=== PATIENT | male | born 1945 | race Caucasian/White ===

== ENCOUNTER 2023-03-09 06:24 | Day surgery (SDC) | payer MEDICARE, SELFPAY ==
[2023-03-09] VITALS (9 sets, daily range): BP systolic 102–127; BP diastolic 59–70; BMI 23.9
[2023-03-09] MEDS: COREG 3.125 MG PO (09:50)
== END 2023-03-09 14:15 | disposition home or self-care (01) ==
LOC: SDS 06:24
PROVIDERS: ATTENDING PHYSICIAN Internal Medicine Critical Care Medicine
DX: R91.1 Solitary pulmonary nodule (principal); R91.8 Other nonspecific abnormal finding of lung field; J95.71 Accidental puncture and laceration of a respiratory system organ or structure during a respiratory system procedure; J98.09 Other diseases of bronchus, not elsewhere classified
CPT/HCPCS: 31629; 31624; 31645; 31654; 31623; 31627; 88172; 88173; 88305; 88312; 71045; 76000; 88112; 88177; 88333; 88334; 88341; 88342; 94640; C1887

== ENCOUNTER → 2023-03-16 14:15 | Outpatient (REF) | payer MEDICARE, SELFPAY ==
[2023-03-16 15:30] LABS: % Basophils 0.6 % (0-2); % Eosinophils 2.3 % (0-6); % Immature Granulocytes 0.4 % (0-0.5); % Lymphocytes 15.5 % (20.5-51.1); % Monocytes 11.7 % (1.7-9.3); % Neutrophils 69.5 % (42.2-75.2); Absolute Eosinophils 0.1 10^3/uL (0-0.7); Absolute Lymphocytes 0.7 10^3/uL (1.2-3.4); Absolute Monocytes 0.6 10^3/uL (0.1-0.6); Absolute Neutrophils 3.3 10^3/uL (1.4-6.5); Hematocrit 37.5 % (39.0-52.0); Hemoglobin 12.8 g/dL (13.0-18.0); Mean Corp Hgb Conc. 34.1 g/dL (33.0-37.0); Mean Corpuscular Hgb 32.6 pg (27.0-31.0); Mean Corpuscular Volume 95.4 fL (80.0-94.0); Mean Platelet Volume 9.8 fL (7.4-10.4); Nucleated Red Blood Cells % 0 % (-); Platelet Count 156 10^3/uL (130-400); Red Blood Cell Count 3.93 10^6/uL (4.70-6.10); White Blood Cell Count 4.7 10^3/uL (4.8-10.8)
[2023-03-16 15:43] LABS: ALT (SGPT) 17 U/L (0-50); AST (SGOT) 26 U/L (17-59); Albumin 3.7 g/dl (3.5-5.0); Alkaline Phosphatase 78 U/L (38-126); Blood Urea Nitrogen 16 mg/dl (9-20); Calcium 9.2 mg/dl (8.4-10.2); Carbon Dioxide 24 mmol/L (22-30); Chloride 109 mmol/L (98-107); Glucose 83 mg/dl (70-99); Potassium 4.8 mmol/L (3.5-5.1); Sodium 136 mmol/L (135-145); Total Bilirubin 1.3 mg/dl (0.2-1.3); Total Protein 6.6 g/dl (6.3-8.2); eGFR > 60.00
[2023-03-16 16:14] LABS: CEA 54.6 ng/ml
== END ==
LOC: OIDL 14:15
PROVIDERS: ATTENDING PHYSICIAN Internal Medicine Hematology & Oncology
DX: C18.2 Malignant neoplasm of ascending colon (principal)
CPT/HCPCS: 80053; 82378; 85025

== ENCOUNTER → 2023-06-05 08:41 | Outpatient (REF) | payer MEDICARE, SELFPAY ==
[2023-06-05 09:26] LABS: % Basophils 0.8 % (0-2); % Eosinophils 1.7 % (0-6); % Immature Granulocytes 0.4 % (0-0.5); % Lymphocytes 16.1 % (20.5-51.1); % Monocytes 10.5 % (1.7-9.3); % Neutrophils 70.5 % (42.2-75.2); Absolute Eosinophils 0.1 10^3/uL (0-0.7); Absolute Lymphocytes 0.8 10^3/uL (1.2-3.4); Absolute Monocytes 0.5 10^3/uL (0.1-0.6); Absolute Neutrophils 3.4 10^3/uL (1.4-6.5); Hematocrit 42.3 % (39.0-52.0); Hemoglobin 14.3 g/dL (13.0-18.0); Mean Corp Hgb Conc. 33.8 g/dL (33.0-37.0); Mean Corpuscular Hgb 31.3 pg (27.0-31.0); Mean Corpuscular Volume 92.6 fL (80.0-94.0); Mean Platelet Volume 9.6 fL (7.4-10.4); Nucleated Red Blood Cells % 0 % (-); Platelet Count 159 10^3/uL (130-400); Red Blood Cell Count 4.57 10^6/uL (4.70-6.10); Red Cell Dist. Width 12.9 % (11.5-14.5); White Blood Cell Count 4.8 10^3/uL (4.8-10.8)
[2023-06-05 12:47] LABS: ALT (SGPT) 17 U/L (0-50); AST (SGOT) 31 U/L (17-59); Albumin 4.2 g/dl (3.5-5.0); Alkaline Phosphatase 73 U/L (38-126); Blood Urea Nitrogen 16 mg/dl (9-20); Calcium 10.2 mg/dl (8.4-10.2); Carbon Dioxide 20 mmol/L (22-30); Chloride 108 mmol/L (98-107); Glucose 98 mg/dl (70-99); HDL Cholesterol 40 mg/dl; LDL Cholesterol, Calculated 53 mg/dl; Potassium 4.8 mmol/L (3.5-5.1); Sodium 136 mmol/L (135-145); Total Bilirubin 1.6 mg/dl (0.2-1.3); Total Cholesterol 119 mg/dl (50-199); Total Protein 7.1 g/dl (6.3-8.2); Triglyceride 134 mg/dl (10-149); Very Low Density Lipoprotein 26 mg/dl (0-30); eGFR > 60.00
== END ==
LOC: REG 08:41
PROVIDERS: ATTENDING PHYSICIAN Internal Medicine
DX: E78.5 Hyperlipidemia, unspecified (principal); I25.5 Ischemic cardiomyopathy; I10 Essential (primary) hypertension; Z00.00 Encounter for general adult medical examination without abnormal findings
CPT/HCPCS: 36415; 80053; 80061; 85025

== ENCOUNTER → 2023-06-15 15:57 | Outpatient (REF) | payer MEDICARE, SELFPAY ==
[2023-06-15 14:21] LABS: % Basophils 0.4 % (0-2); % Eosinophils 1.8 % (0-6); % Immature Granulocytes 0.5 % (0-0.5); % Lymphocytes 14.3 % (20.5-51.1); % Monocytes 9.2 % (1.7-9.3); % Neutrophils 73.8 % (42.2-75.2); Absolute Eosinophils 0.1 10^3/uL (0-0.7); Absolute Lymphocytes 0.8 10^3/uL (1.2-3.4); Absolute Monocytes 0.5 10^3/uL (0.1-0.6); Absolute Neutrophils 4.1 10^3/uL (1.4-6.5); Hematocrit 39.1 % (39.0-52.0); Hemoglobin 13.2 g/dL (13.0-18.0); Mean Corp Hgb Conc. 33.8 g/dL (33.0-37.0); Mean Corpuscular Hgb 31.4 pg (27.0-31.0); Mean Corpuscular Volume 93.1 fL (80.0-94.0); Mean Platelet Volume 9.3 fL (7.4-10.4); Nucleated Red Blood Cells % 0 % (-); Platelet Count 159 10^3/uL (130-400); White Blood Cell Count 5.5 10^3/uL (4.8-10.8)
[2023-06-15 16:34] LABS: ALT (SGPT) 19 U/L (0-50); AST (SGOT) 39 U/L (17-59); Alkaline Phosphatase 74 U/L (38-126); Blood Urea Nitrogen 23 mg/dl (9-20); Calcium 9.8 mg/dl (8.4-10.2); Carbon Dioxide 21 mmol/L (22-30); Chloride 108 mmol/L (98-107); Glucose 95 mg/dl (70-99); Potassium 4.6 mmol/L (3.5-5.1); Sodium 137 mmol/L (135-145); Total Bilirubin 1.3 mg/dl (0.2-1.3); eGFR > 60.00
[2023-06-15 17:04] LABS: CEA 124 ng/ml
== END ==
LOC: OIDL 15:57
PROVIDERS: ATTENDING PHYSICIAN Internal Medicine Hematology & Oncology
DX: C18.2 Malignant neoplasm of ascending colon (principal)
CPT/HCPCS: 80053; 82378; 85025

== ENCOUNTER → 2023-10-05 16:13 | Outpatient (REF) | payer MEDICARE, SELFPAY ==
[2023-10-05 16:20] LABS: % Basophils 0.3 % (0-2); % Eosinophils 1.4 % (0-6); % Immature Granulocytes 0.3 % (0-0.5); % Lymphocytes 11.4 % (20.5-51.1); % Monocytes 8.7 % (1.7-9.3); % Neutrophils 77.9 % (42.2-75.2); Absolute Eosinophils 0.1 10^3/uL (0-0.7); Absolute Lymphocytes 0.7 10^3/uL (1.2-3.4); Absolute Monocytes 0.6 10^3/uL (0.1-0.6); Hematocrit 39.9 % (39.0-52.0); Hemoglobin 13.5 g/dL (13.0-18.0); Mean Corp Hgb Conc. 33.8 g/dL (33.0-37.0); Mean Corpuscular Hgb 32.5 pg (27.0-31.0); Mean Corpuscular Volume 95.9 fL (80.0-94.0); Mean Platelet Volume 9.9 fL (7.4-10.4); Nucleated Red Blood Cells % 0 % (-); Platelet Count 173 10^3/uL (130-400); Red Blood Cell Count 4.16 10^6/uL (4.70-6.10); Red Cell Dist. Width 12.8 % (11.5-14.5); White Blood Cell Count 6.5 10^3/uL (4.8-10.8)
[2023-10-05 16:25] LABS: ALT (SGPT) 17 U/L (0-50); AST (SGOT) 32 U/L (17-59); Alkaline Phosphatase 81 U/L (38-126); Blood Urea Nitrogen 14 mg/dl (9-20); Calcium 10.1 mg/dl (8.4-10.2); Carbon Dioxide 24 mmol/L (22-30); Chloride 106 mmol/L (98-107); Glucose 94 mg/dl (70-99); Potassium 4.5 mmol/L (3.5-5.1); Sodium 141 mmol/L (135-145); Total Bilirubin 1.3 mg/dl (0.2-1.3); Total Protein 6.8 g/dl (6.3-8.2); eGFR > 60.00
[2023-10-05 16:55] LABS: CEA 190 ng/ml
== END ==
LOC: OIDL 16:13
PROVIDERS: ATTENDING PHYSICIAN Internal Medicine Hematology & Oncology
DX: C18.2 Malignant neoplasm of ascending colon (principal)
CPT/HCPCS: 80053; 82378; 85025

== ENCOUNTER → 2023-12-28 08:48 | Outpatient (REF) | payer MEDICARE, SELFPAY ==
[2023-12-28 09:50] LABS: % Basophils 0.8 % (0-2); % Eosinophils 2.1 % (0-6); % Immature Granulocytes 0.4 % (0-0.5); % Lymphocytes 15.7 % (20.5-51.1); % Monocytes 11.4 % (1.7-9.3); % Neutrophils 69.6 % (42.2-75.2); Absolute Eosinophils 0.1 10^3/uL (0-0.7); Absolute Lymphocytes 0.8 10^3/uL (1.2-3.4); Absolute Monocytes 0.6 10^3/uL (0.1-0.6); Absolute Neutrophils 3.4 10^3/uL (1.4-6.5); Hematocrit 40.8 % (39.0-52.0); Hemoglobin 13.6 g/dL (13.0-18.0); Mean Corp Hgb Conc. 33.3 g/dL (33.0-37.0); Mean Platelet Volume 9.6 fL (7.4-10.4); Nucleated Red Blood Cells % 0 % (-); Platelet Count 165 10^3/uL (130-400); Red Blood Cell Count 4.25 10^6/uL (4.70-6.10); White Blood Cell Count 4.8 10^3/uL (4.8-10.8)
[2023-12-28 11:05] LABS: ALT (SGPT) 18 U/L (0-50); AST (SGOT) 29 U/L (17-59); Albumin 4.2 g/dl (3.5-5.0); Alkaline Phosphatase 77 U/L (38-126); Blood Urea Nitrogen 23 mg/dl (9-20); Carbon Dioxide 25 mmol/L (22-30); Chloride 107 mmol/L (98-107); Glucose 96 mg/dl (70-99); HDL Cholesterol 42 mg/dl; LDL Cholesterol, Calculated 63 mg/dl; Potassium 5.2 mmol/L (3.5-5.1); Sodium 146 mmol/L (135-145); Total Bilirubin 1.3 mg/dl (0.2-1.3); Total Cholesterol 132 mg/dl (50-199); Total Protein 7.3 g/dl (6.3-8.2); Triglyceride 138 mg/dl (10-149); Very Low Density Lipoprotein 27 mg/dl (0-30); eGFR > 60.00
[2023-12-28 15:19] LABS: Direct Bilirubin 0.3 mg/dl (0.0-0.4)
== END ==
LOC: REG 08:48
PROVIDERS: ATTENDING PHYSICIAN Internal Medicine; OTHER PHYSICIAN Internal Medicine Cardiovascular Disease
DX: Z00.00 Encounter for general adult medical examination without abnormal findings (principal); I10 Essential (primary) hypertension; E78.00 Pure hypercholesterolemia, unspecified; Z12.5 Encounter for screening for malignant neoplasm of prostate; Z85.46 Personal history of malignant neoplasm of prostate
CPT/HCPCS: 36415; 80053; 80061; 82248; 84153; 84154; 85025

== ENCOUNTER → 2024-01-11 14:01 | Outpatient (REF) | payer MEDICARE, SELFPAY | LOC: CLAB 14:01 | PROVIDERS: ATTENDING PHYSICIAN Internal Medicine Hematology & Oncology | DX: C18.2 Malignant neoplasm of ascending colon (principal); G62.0 Drug-induced polyneuropathy; C78.00 Secondary malignant neoplasm of unspecified lung | CPT/HCPCS: 36415; 82378 ==

== ENCOUNTER → 2024-02-29 09:34 | Outpatient (REF) | payer MEDICARE, SELFPAY ==
[2024-02-29 11:09] LABS: Blood Urea Nitrogen 20 mg/dl (9-20)
== END ==
LOC: REG 09:34
PROVIDERS: ATTENDING PHYSICIAN Internal Medicine Hematology & Oncology; FAMILY PHYSICIAN Internal Medicine
DX: C18.2 Malignant neoplasm of ascending colon (principal); G62.0 Drug-induced polyneuropathy; C78.00 Secondary malignant neoplasm of unspecified lung
CPT/HCPCS: 36415; 82565; 84520

== ENCOUNTER → 2024-03-11 14:59 | Outpatient (REF) | payer MEDICARE, SELFPAY | LOC: RAD 14:59 | PROVIDERS: ATTENDING PHYSICIAN Nurse Practitioner Adult Health; FAMILY PHYSICIAN Internal Medicine | DX: C18.2 Malignant neoplasm of ascending colon (principal); C78.00 Secondary malignant neoplasm of unspecified lung; C62.00 Malignant neoplasm of unspecified undescended testis | CPT/HCPCS: 70470; Q9967 ==

== ENCOUNTER → 2024-04-04 16:15 | Outpatient (REF) | payer MEDICARE, SELFPAY ==
[2024-04-04 14:34] LABS: % Basophils 0.2 % (0-2); % Eosinophils 2.6 % (0-6); % Immature Granulocytes 0.2 % (0-0.5); % Lymphocytes 15.4 % (20.5-51.1); % Monocytes 11.6 % (1.7-9.3); Absolute Eosinophils 0.1 10^3/uL (0-0.7); Absolute Lymphocytes 0.7 10^3/uL (1.2-3.4); Absolute Monocytes 0.5 10^3/uL (0.1-0.6); Absolute Neutrophils 3.2 10^3/uL (1.4-6.5); Hematocrit 39.2 % (39.0-52.0); Hemoglobin 12.8 g/dL (13.0-18.0); Mean Corp Hgb Conc. 32.7 g/dL (33.0-37.0); Mean Corpuscular Hgb 31.6 pg (27.0-31.0); Mean Corpuscular Volume 96.8 fL (80.0-94.0); Platelet Count 175 10^3/uL (130-400); Red Blood Cell Count 4.05 10^6/uL (4.70-6.10); Red Cell Dist. Width 12.6 % (11.5-14.5); White Blood Cell Count 4.6 10^3/uL (4.8-10.8)
[2024-04-04 14:59] LABS: ALT (SGPT) 14 U/L (0-50); AST (SGOT) 23 U/L (17-59); Albumin 3.6 g/dl (3.5-5.0); Alkaline Phosphatase 96 U/L (38-126); Blood Urea Nitrogen 13 mg/dl (9-20); Calcium 9.3 mg/dl (8.4-10.2); Carbon Dioxide 24 mmol/L (22-30); Chloride 106 mmol/L (98-107); Glucose 98 mg/dl (70-99); Potassium 4.8 mmol/L (3.5-5.1); Sodium 138 mmol/L (135-145); Total Bilirubin 1.4 mg/dl (0.2-1.3); Total Protein 6.7 g/dl (6.3-8.2); eGFR > 60.00
[2024-04-04 15:32] LABS: CEA 333 ng/ml
== END ==
LOC: OIDL 16:15
PROVIDERS: ATTENDING PHYSICIAN Internal Medicine Hematology & Oncology
DX: C18.2 Malignant neoplasm of ascending colon (principal)
CPT/HCPCS: 80053; 82378; 85025

== ENCOUNTER → 2024-04-24 11:22 | Outpatient (REF) | payer MEDICARE, SELFPAY | LOC: RAD 11:22 | PROVIDERS: ATTENDING PHYSICIAN Nurse Practitioner Adult Health; FAMILY PHYSICIAN Internal Medicine | DX: C18.2 Malignant neoplasm of ascending colon (principal); C78.00 Secondary malignant neoplasm of unspecified lung; G62.0 Drug-induced polyneuropathy | CPT/HCPCS: 74160; Q9967 ==

== ENCOUNTER → 2024-04-28 09:07 | Outpatient (REF) | payer MEDICARE, SELFPAY ==
[2024-04-28 09:30] LABS: Hemoglobin 13.7 g/dL (13.0-18.0); Mean Corp Hgb Conc. 32.6 g/dL (33.0-37.0); Mean Corpuscular Hgb 31.6 pg (27.0-31.0); Mean Corpuscular Volume 96.8 fL (80.0-94.0); Mean Platelet Volume 9.3 fL (7.4-10.4); Platelet Count 163 10^3/uL (130-400); Red Blood Cell Count 4.34 10^6/uL (4.70-6.10); Red Cell Dist. Width 13.1 % (11.5-14.5); White Blood Cell Count 5.3 10^3/uL (4.8-10.8)
[2024-04-28 09:35] VITALS: BP 126/72; BP_SYST 70
[2024-04-28 09:39] LABS: INR 1.08; PT 14.3 Sec (11.4-14.6)
[2024-04-28 11:30] VITALS: BP 134/70; BP_SYST 60
== END ==
LOC: RADI 09:07
PROVIDERS: ATTENDING PHYSICIAN Internal Medicine Hematology & Oncology; FAMILY PHYSICIAN Internal Medicine; REFERRING PHYSICIAN Physician Assistant
DX: C79.72 Secondary malignant neoplasm of left adrenal gland (principal); C18.2 Malignant neoplasm of ascending colon; D68.8 Other specified coagulation defects
CPT/HCPCS: 88305; 36415; 49180; 77012; 85027; 85610; 88333; 88341; 88342; 99152; 99153

== ENCOUNTER 2024-05-19 09:55 | Emergency (ER) | payer MEDICARE, SELFPAY ==
[2024-05-19 10:02] VITALS: BP 116/78
[2024-05-19 10:36] VITALS: BMI 24.3
--- NOTE | 2024-05-19 10:36 | ED.GENMED ---
History of Present Illness
<Juan Modi, DO - Last Filed: 05/19/24 13:00>
General
Chief Complaint: Bowel Problem
Time Seen by Provider: 05/19/24 10:06
<Kristin Chen MD, Resident - Last Filed: 05/19/24 14:12>
History of Present Illness
History of Present Illness:
This is a 78-year-old male with multiple past medical history including history of malignant neoplasm of ascending colon treated with right colectomy, chemotherapy and radiation therapy, left adrenal mass scheduled for a left adrenalectomy tomorrow
under the direction of Dr. Unruly Maria, presents to the ED complaining of constipation. Patient reports he has not had a bowel movement for the past 7 days. He currently takes Oxycodone 5mg for pain secondary to the adrenal tumor for the past month. He
hasn't been taking a bowel regimen with the opioid med. He reports trying Colace, milk and mag, and miralax this weekend, but has not had a Bowel movement despite this regimen. He reports passing gas. He does not eat solids due to the current pain
he has, and drinks Ensure only. He has not had any episode of vomiting his food. He reports he does feel nauseous sometimes. He reports abdominal tenderness which is secondary to his adrenal gland tumor and has been present since diagnosis of tumor,
otherwise no new abdominal pain symptom. He denies fever, chill, diarrhea.
Past History
<Juan Modi, DO - Last Filed: 05/19/24 13:00>
Past History
ED Past Medical History: CAD, Cancer (Prostate and colon), HTN, Hypercholesterolemia, VT, Other (myelodysplastic syndrome) and Other (Prostate cancer, bilateral hearing impairment)
ED Past Surgical History: Cardiac (2 cardiac stents and an automatic internal cardiac defibrillator placed. Cardiac arrest.) and Urological (Prostatectomy)
Social History
Tobacco: Former smoker
Drug: None
Personal:
Living: with family
Employment: Retired
Family History
Family History: Other
<Kristin Chen MD, Resident - Last Filed: 05/19/24 14:12>
Past History
ED Past Medical History: Other (left adrenal mass)
Phy Exam
<Kristin Chen MD, Resident - Last Filed: 05/19/24 14:12>
General Physical Exam
General Presentation: well appearing and no apparent distress
General Skin: warm and dry
General Mental: alert
General Hydration: appears well hydrated
Cardiovascular Exam
Cardiovascular Exam: regular rate/rhythm
Pulmonary Exam
Pulmonary Exam: lungs clear and no respiratory distress
Gastrointestinal Exam
Gastrointestinal Exam: normal bowel sounds, soft, non distended and tender (RUQ tenderness)
Auscultation of Abdomen: normal
Rectal Exam: impacted stool
Course
<Juan Modi, DO - Last Filed: 05/19/24 13:00>
Orders/Labs/Results
Orders:
Orders
05/19/24 10:47
Enema- Treatment ONCE
Type: Soap Suds
05/19/24 12:55
CR Obstruct Series W/pa Chest Urgent
Comment:
Reason For Exam: constipation
05/19/24 13:24
Methylnaltrexone [place] [Relistor] 12 mg SC NOW STA
Vital Signs
Initial and Last Documented VS:
Initial Vital Signs
Temp Pulse Resp BP Pulse Ox
97.8 F 75 16 116/78 97
05/19/24 10:02 05/19/24 10:02 05/19/24 10:02 05/19/24 10:02 05/19/24 10:02
Last Documented Vital Signs
Temp Pulse Resp BP Pulse Ox
97.8 F 75 16 116/78 97
05/19/24 10:02 05/19/24 10:02 05/19/24 10:02 05/19/24 10:02 05/19/24 10:02
<Kristin Chen MD, Resident - Last Filed: 05/19/24 14:12>
Orders/Labs/Results
Orders:
Orders
05/19/24 10:47
Enema- Treatment ONCE
Type: Soap Suds
05/19/24 12:55
CR Obstruct Series W/pa Chest Urgent
Comment:
Reason For Exam: constipation
05/19/24 13:24
Methylnaltrexone [place] [Relistor] 12 mg SC NOW STA
Vital Signs
Initial and Last Documented VS:
Initial Vital Signs
Temp Pulse Resp BP Pulse Ox
97.8 F 75 16 116/78 97
05/19/24 10:02 05/19/24 10:02 05/19/24 10:02 05/19/24 10:02 05/19/24 10:02
Last Documented Vital Signs
Temp Pulse Resp BP Pulse Ox
97.8 F 75 16 116/78 97
05/19/24 10:02 05/19/24 10:02 05/19/24 10:02 05/19/24 10:02 05/19/24 10:02
<Kristin Chen MD, Resident - Last Filed: 05/19/24 14:12>
MDM/Problems Addressed
MDM/Problems Addressed:
78-year-old male with multiple past medical history including history of malignant neoplasm of ascending colon treated with right colectomy, chemotherapy and radiation therapy, left adrenal mass scheduled for a left adrenalectomy tomorrow presents
to the ER complaining of constipation. Patient reports he has not had a Bowel movement for the past 7 days. Takes Oxycodone 5mg for pain secondary to adrenal tumor for the past month. Did not take bowel regimen until yesterday, but still did not
have a BM. Passing gas. Afebrile, with no reported fevers. Abdomen tender Right upper quadrant secondary to adrenal mass which patient considers as chronic pain. No new abdominal pain episode. Abdomen soft, non distended. Rectal examination with
fecal impaction in the rectal vault. Attempted manual disimpaction which was Unsuccessful. Was administered Rectal enema with little BM passed, but still constipated. Relistor ordered. Abdominal Xray ordered without evidence of obstruction. Stool in
rectum. Relistor administered after obstruction ruled out. Instructed to take otc Bowel regimen with opioid medication.
<Kristin Chen MD, Resident - Last Filed: 05/19/24 14:12>
*Critical Care Note
Total Time (30-74mins, 75-104mins- exclusive of procedures): Not Applicable
ED Attending Note
<Juan Modi DO - Last Filed: 05/19/24 13:00>
ED Attending Note
Patient seen and examined by attending physician: Yes
I performed the substantive portion of visit, reviewed & personally made and approve the management plan that is documented in note by myself or KVNG.: Yes
ED Attending Note:
Scheduled for adrenalectomy for tumor tomorrow. Patient has been on opiates for the past 4 weeks and likely has opioid-induced constipation. He only recently started taking MiraLAX. He has firm stool on digital rectal examination but we are
unable to manually disimpact. Will give Relistor.
-
Portions of this chart may have been created with voice recognition software.� Occasional wrong word or��sound alike� substitutions may have occurred due to the inherent limitations of voice recognition software.
Discharge Plan
Departure
Patient Disposition: Home (Routine Discharge)
Date of Disposition: 05/19/24
Time of Disposition: 14:09
Patient with high blood pressure during this ER visit?: No
Discharge Problem:
Opioid-induced constipation
Instructions: Constipation, Adult (DC)
Prescriptions:
No Action
aspirin 81 MG tablet,delayed release (DR/EC)
81 mg PO .Q48H@HS
Patient Comments:
Takes in the evening
carvedilol 3.125 MG tablet
3.125 mg PO BID
lisinopril 5 MG tablet
5 mg PO HS
atorvastatin 20 mg Tablet
20 mg PO HS
Referrals:
Gabino Aleman MD [Family Provider] -
Interventions
Interventions:
*Risk Screen - Suicide Last Done: 05/19/24 10:02
*General Assessment Last Done: 05/19/24 10:39
*Neglect/Abuse Screening Last Done: 05/19/24 10:02
*ED- Fall Risk Assessment Last Done: 05/19/24 10:39
*ED COVID-19 Vaccine History Last Done: 05/19/24 10:39
HF-Fhechu-Mmbxtyrnfu Assessment Last Done: 05/19/24 10:39
Discharge Date and Time
Print Language: SWEDISH
[2024-05-19] MEDS: RELISTOR 12 MG SC (13:58)
[2024-05-19 15:13] VITALS: BP 114/65
== END 2024-05-19 15:38 | disposition home or self-care (01) ==
LOC: EMR 09:55
PROVIDERS: EMERGENCY PHYSICIAN Emergency Medicine; FAMILY PHYSICIAN Internal Medicine
DX: R10.811 Right upper quadrant abdominal tenderness (principal); T40.2X5A Adverse effect of other opioids, initial encounter; Y92.9 Unspecified place or not applicable; I25.10 Atherosclerotic heart disease of native coronary artery without angina pectoris; I10 Essential (primary) hypertension; E78.00 Pure hypercholesterolemia, unspecified; D46.9 Myelodysplastic syndrome, unspecified; Z85.038 Personal history of other malignant neoplasm of large intestine; Z85.46 Personal history of malignant neoplasm of prostate; Z86.74 Personal history of sudden cardiac arrest; Z87.891 Personal history of nicotine dependence; Z90.49 Acquired absence of other specified parts of digestive tract; Z90.79 Acquired absence of other genital organ(s); Z92.3 Personal history of irradiation; Z95.5 Presence of coronary angioplasty implant and graft; Z95.810 Presence of automatic (implantable) cardiac defibrillator
CPT/HCPCS: 99283; 96372; 74022

== ENCOUNTER 2024-05-20 11:30 | Day surgery (SDC) | payer MEDICARE, SELFPAY ==
[2024-05-15 12:44] VITALS: BMI 26.4
[2024-05-15 13:00] LABS: Hematocrit 41.8 % (39.0-52.0); Hemoglobin 13.8 g/dL (13.0-18.0); Mean Corpuscular Hgb 31.9 pg (27.0-31.0); Mean Corpuscular Volume 96.5 fL (80.0-94.0); Mean Platelet Volume 9.7 fL (7.4-10.4); Platelet Count 189 10^3/uL (130-400); Red Blood Cell Count 4.33 10^6/uL (4.70-6.10); White Blood Cell Count 5.5 10^3/uL (4.8-10.8)
[2024-05-15 13:14] LABS: APTT 28.4 Sec (23.4-35.0); INR 1.11; PT 14.9 Sec (11.4-14.6)
[2024-05-15 13:35] LABS: ALT (SGPT) 16 U/L (0-50); AST (SGOT) 27 U/L (17-59); Albumin 4.4 g/dl (3.5-5.0); Alkaline Phosphatase 94 U/L (38-126); Blood Urea Nitrogen 17 mg/dl (9-20); Calcium 10.3 mg/dl (8.4-10.2); Carbon Dioxide 26 mmol/L (22-30); Chloride 104 mmol/L (98-107); Estimated Creatinine Clearance 67 ml/min; Glucose 86 mg/dl (70-99); Potassium 4.5 mmol/L (3.5-5.1); Sodium 142 mmol/L (135-145); Total Bilirubin 1.6 mg/dl (0.2-1.3); Total Protein 7.5 g/dl (6.3-8.2); eGFR > 60.00
[2024-05-20 11:15] VITALS: BP 110/59
[2024-05-20 11:20] VITALS: BMI 26.4
[2024-05-20] MEDS: NORMOSOL-R/PLASMALYTE-A 1000 IV (11:45)
--- NOTE | 2024-05-20 11:50 | PTCARENOTE ---
RN spoke to Dr. Snow regarding patient's pain and nausea. Preoperative medications were not administered yet due to the nausea. RN awaitng directions from Dr. Snow.
[2024-05-20] MEDS: ZOFRAN 4 MG IV (12:26)
[2024-05-20] MEDS: HEPARIN 5000 UNITS SC (12:37)
== END 2024-05-20 12:55 | disposition home or self-care (01) ==
LOC: SDS 11:30
PROVIDERS: ATTENDING PHYSICIAN Surgery; FAMILY PHYSICIAN Internal Medicine
DX: Z53.9 Procedure and treatment not carried out, unspecified reason (principal); C79.72 Secondary malignant neoplasm of left adrenal gland
CPT/HCPCS: 60540; 36415; 74022; 80053; 85027; 85610; 85730; 86850; 86900; 86901; 86920

== ENCOUNTER 2024-05-28 09:42 | Inpatient (IN) | payer MEDICARE, SELFPAY ==
[2024-05-28] VITALS (12 sets, daily range): BP systolic 98–148; BP diastolic 60–84; BMI 24.2
[2024-05-28] MEDS: NORMOSOL-R/PLASMALYTE-A 1000 IV (09:58)
[2024-05-28] MEDS: TYLENOL 1000 MG PO (09:58)
[2024-05-28] MEDS: NEURONTIN 300 MG PO (09:58)
[2024-05-28] MEDS: HEPARIN 5000 UNITS SC ×2 (11:06→20:44)
[2024-05-28] MEDS: NEURONTIN 200 MG PO ×2 (16:35→22:55)
[2024-05-28] MEDS: TYLENOL 650 MG PO ×2 (16:36→20:44)
[2024-05-28] MEDS: D5/0.9% SODIUM CHLORIDE 1000 IV (16:36)
--- NOTE | 2024-05-28 16:42 | PTCARENOTE ---
Patient admitted from PACU post exploratory laparoscopic resection of gastric tumor.They had planned to do a left adrenalectomy but were unable to that.The patient is alert and oriented.He rates his pain at a 3-4 out of 10.The midline dressing is
intact with only scant drainage.Vital signs are stable.The patient is in his bed with the call becerra in reach.
[2024-05-28] MEDS: COREG PO (19:49)
[2024-05-28] MEDS: PEPCID 20 MG PO (20:44)
[2024-05-28] MEDS: COLACE 100 MG PO (20:44)
[2024-05-28] MEDS: ZESTRIL 5 MG PO (22:55)
[2024-05-28] MEDS: LIPITOR 20 MG PO (22:55)
[2024-05-29] VITALS (7 sets, daily range): BP systolic 93–124; BP diastolic 49–73; PULSE 66; O2SAT 100
[2024-05-29] MEDS: TYLENOL PO ×2 (00:26→05:00)
[2024-05-29 05:10] LABS: Hematocrit 34.9 % (39.0-52.0); Hemoglobin 11.8 g/dL (13.0-18.0); Mean Corp Hgb Conc. 33.8 g/dL (33.0-37.0); Mean Corpuscular Hgb 31.9 pg (27.0-31.0); Mean Corpuscular Volume 94.3 fL (80.0-94.0); Mean Platelet Volume 9.6 fL (7.4-10.4); Platelet Count 126 10^3/uL (130-400); Red Cell Dist. Width 12.6 % (11.5-14.5); White Blood Cell Count 8.6 10^3/uL (4.8-10.8)
[2024-05-29 05:19] LABS: INR 1.28; PT 16.5 Sec (11.4-14.6)
[2024-05-29 05:32] LABS: ALT (SGPT) 13 U/L (0-50); AST (SGOT) 22 U/L (17-59); Alkaline Phosphatase 69 U/L (38-126); Amylase 89 U/L (30-110); Blood Urea Nitrogen 18 mg/dl (9-20); Calcium 9.2 mg/dl (8.4-10.2); Carbon Dioxide 24 mmol/L (22-30); Chloride 109 mmol/L (98-107); Estimated Creatinine Clearance 81 ml/min; Glucose 158 mg/dl (70-99); Lipase 360 U/L (23-300); Potassium 4.6 mmol/L (3.5-5.1); Sodium 139 mmol/L (135-145); Total Bilirubin 1.5 mg/dl (0.2-1.3); Total Protein 5.7 g/dl (6.3-8.2); eGFR > 60.00
[2024-05-29] MEDS: D5/0.9% SODIUM CHLORIDE 1000 IV (06:00)
[2024-05-29 07:38] LABS: Hepatitis C Antibody Negative (Negative)
[2024-05-29] MEDS: COLACE 100 MG PO ×2 (08:54→20:21)
[2024-05-29] MEDS: NEURONTIN 200 MG PO ×3 (08:54→21:59)
[2024-05-29] MEDS: ROXICODONE 5 MG PO ×2 (08:55→22:01)
[2024-05-29] MEDS: HEPARIN 5000 UNITS SC (08:55)
[2024-05-29] MEDS: COREG 3.125 MG PO (08:55)
[2024-05-29] MEDS: TYLENOL 650 MG PO ×4 (08:55→20:21)
[2024-05-29] MEDS: PEPCID 20 MG PO ×2 (08:55→20:21)
[2024-05-29] MEDS: TORADOL 15 MG IV ×3 (10:14→21:59)
--- NOTE | 2024-05-29 10:53 | CM ---
CM reviewed medical records. Patent lives independently with . Patient has a history of [facility], but is currently not on service. Patient denies history of SNF or DME. Patient stated that if he needs SNF he would prefer [facility]. Patient is
active with his PCP. Patient uses [facility] for medication services
CM will continue to follow for needs.
PLAN: home vs Home with VN
--- NOTE | 2024-05-29 15:26 | W.PN.GENERIC ---
Assessment / Plan
-
S/p Exp Lap. Resection of gastric tumor.
Surgically stable
DC iVF. Continue regular diet.
If continues to do well, possible dc tomorrow.
Physician Progress Note
Subjective
No complaints. Good pain control and tolerating regular diet
Objective
Vital Signs
Temp Pulse Resp BP Pulse Ox
98.2 F 67 16 104/58 97
05/29/24 11:15 05/29/24 11:15 05/29/24 11:15 05/29/24 11:15 05/29/24 11:15
Lab Results
05/29/24 04:29
05/29/24 04:29
Abdomen - soft, NT, ND. Incision - CDE
[2024-05-29] MEDS: FLUSH (NSS) 1 FLUSH IV (16:09)
[2024-05-29] MEDS: COREG PO (20:22)
[2024-05-29] MEDS: LIPITOR 20 MG PO (21:59)
[2024-05-29] MEDS: ZESTRIL PO (22:06)
[2024-05-30] MEDS: TYLENOL PO ×4 (01:00→23:48)
[2024-05-30] MEDS: TORADOL 15 MG IV ×3 (03:12→22:02)
[2024-05-30 06:04] LABS: Blood Urea Nitrogen 27 mg/dl (9-20); Calcium 8.9 mg/dl (8.4-10.2); Carbon Dioxide 24 mmol/L (22-30); Chloride 111 mmol/L (98-107); Estimated Creatinine Clearance 72 ml/min; Glucose 92 mg/dl (70-99); Potassium 4.4 mmol/L (3.5-5.1); Sodium 139 mmol/L (135-145); eGFR > 60.00
[2024-05-30 06:12] LABS: Hematocrit 29.7 % (39.0-52.0); Mean Corp Hgb Conc. 33.7 g/dL (33.0-37.0); Mean Corpuscular Hgb 31.9 pg (27.0-31.0); Mean Corpuscular Volume 94.9 fL (80.0-94.0); Mean Platelet Volume 10.3 fL (7.4-10.4); Platelet Count 117 10^3/uL (130-400); Red Blood Cell Count 3.13 10^6/uL (4.70-6.10); Red Cell Dist. Width 13.2 % (11.5-14.5); White Blood Cell Count 5.9 10^3/uL (4.8-10.8)
[2024-05-30 07:05] VITALS: BP 100/61
[2024-05-30] MEDS: NEURONTIN 200 MG PO ×3 (08:13→22:01)
[2024-05-30] MEDS: COLACE PO ×2 (08:13→20:28)
[2024-05-30] MEDS: COREG PO (08:13)
[2024-05-30] MEDS: PEPCID 20 MG PO ×2 (08:13→20:27)
[2024-05-30] MEDS: TYLENOL 650 MG PO ×4 (08:13→20:26)
--- NOTE | 2024-05-30 09:35 | CM ---
Cm reviewed medical records. CM met with patient in room. CM spoke with patient and offered home care. Patient declined rehab and home care. Patient stated that he has his family close by and they will provide support. CM encouraged home care
further and patient persisted with declining.
Patient became tearful and started talking about his grandchildren and family. CM provided emotional support. CM will continue to follow for needs
PLAN: home, patient declining home care.
[2024-05-30] MEDS: TORADOL IV (11:17)
[2024-05-30 15:45] VITALS: BP 118/75
[2024-05-30] MEDS: ROXICODONE 5 MG PO (16:01)
--- NOTE | 2024-05-30 18:36 | W.PN.GENERIC ---
Assessment / Plan
-
S/p gastric tumor excision and aborted resection of the left adrenal tumor POD #2
Stable
Decrease Hg noted - perioperative blood loss and dilution
Will repeat another Hg in AM
If Hg stable, possibe dc home tomorrow
Physician Progress Note
Subjective
No complaints. No abdominal pain. No N/V. Poor appetite
Objective
Vital Signs
Temp Pulse Resp BP Pulse Ox
98.4 F 68 16 118/75 96
05/30/24 15:45 05/30/24 15:45 05/30/24 15:45 05/30/24 15:45 05/30/24 15:45
Lab Results
05/30/24 05:02
05/30/24 05:02
[2024-05-30] MEDS: COREG 3.125 MG PO (20:27)
[2024-05-30] MEDS: LIPITOR 20 MG PO (22:01)
[2024-05-30] MEDS: ZESTRIL PO (22:24)
[2024-05-30] MEDS: ZOFRAN 4 MG IV (22:27)
[2024-05-30 23:05] VITALS: BP 100/52
[2024-05-31] MEDS: ZOFRAN 4 MG IV (04:39)
[2024-05-31] MEDS: TORADOL 15 MG IV ×3 (04:39→17:34)
[2024-05-31] MEDS: TYLENOL PO ×5 (04:40→23:30)
[2024-05-31 05:13] LABS: Hematocrit 31.7 % (39.0-52.0); Hemoglobin 10.5 g/dL (13.0-18.0); Mean Corp Hgb Conc. 33.1 g/dL (33.0-37.0); Mean Corpuscular Hgb 31.7 pg (27.0-31.0); Mean Corpuscular Volume 95.8 fL (80.0-94.0); Platelet Count 132 10^3/uL (130-400); Red Blood Cell Count 3.31 10^6/uL (4.70-6.10); Red Cell Dist. Width 13.2 % (11.5-14.5); White Blood Cell Count 5.6 10^3/uL (4.8-10.8)
[2024-05-31 07:05] VITALS: BP 128/69
[2024-05-31] MEDS: PEPCID 20 MG PO ×2 (08:25→20:48)
[2024-05-31] MEDS: COLACE PO ×3 (08:25→21:35)
[2024-05-31] MEDS: COREG 3.125 MG PO ×2 (08:25→20:48)
[2024-05-31] MEDS: TYLENOL 650 MG PO ×2 (08:25→17:34)
[2024-05-31] MEDS: NEURONTIN 200 MG PO ×3 (08:25→20:52)
--- NOTE | 2024-05-31 11:53 | W.PN.GENERIC ---
Assessment / Plan
-
S/p Exp Lap, gastric tumor resection, aborted resection of left adrenal tumor
Stable
Hg stable
Will dc home today
Physician Progress Note
Subjective
Feeling well. Min incisional or abdominal pain. Had multiple BMs
Objective
Vital Signs
Temp Pulse Resp BP Pulse Ox
97.4 F 71 16 128/69 99
05/31/24 07:05 05/31/24 07:05 05/31/24 07:05 05/31/24 07:05 05/31/24 07:05
Lab Results
05/31/24 04:58
05/30/24 05:02
Abdomen - soft ND. Incision - CDI
--- NOTE | 2024-05-31 11:55 | W.DS.TRANS ---
DC Summary - [employer]
-
Discharge Instructions:
Sleep Apnea Risk Low
Discharge Diagnosis/Procedures Metastatic colon cancer
Diet As tolerated
Activity As tolerated,No strenuous activity
Driving Restrictions Not until seen by your Dr
Bathing Restrictions OK to Shower
Instructions:
Stand-Alone Forms:
Changes to Home Medications: No
Discharge Medications:
DC Medications w/original date entered in [email or web address]
aspirin 81 mg tablet,delayed release 81 mg PO Q48H@2200 Blood clot prevention/tx 06/06/15
carvedilol 3.125 mg tablet 3.125 mg PO BID Heart disease/condition 06/06/15
lisinopril 5 mg tablet 5 mg PO HS Blood pressure 01/26/21
atorvastatin 20 mg tablet 20 mg PO HS High Cholesterol 02/28/23
oxycodone 5 mg tablet 5 - 10 mg PO TID Pain 05/20/24
docusate sodium 100 mg capsule (Colace) 100 - 200 mg PO TID Constipation 05/27/24
Home Medication Changes
Pending Results: No
[2024-05-31 15:05] VITALS: BP 145/76
--- NOTE | 2024-05-31 16:01 | CM ---
Reviewed the chart notes and spoke with the patient at the bedside. IMM reviewed. CM continues to be available to patient/family and is monitoring medical plan for needs at discharge.
Plan: Discharge to home when medically stable.
[2024-05-31] MEDS: LIPITOR 20 MG PO (20:52)
[2024-05-31] MEDS: ZESTRIL PO (22:00)
[2024-05-31] MEDS: TORADOL IV (22:00)
[2024-05-31 23:00] VITALS: BP 116/58
[2024-06-01] MEDS: TORADOL 15 MG IV ×4 (04:31→21:45)
[2024-06-01] MEDS: TYLENOL 650 MG PO ×6 (04:32→23:43)
[2024-06-01 07:04] VITALS: BP 131/79
[2024-06-01] MEDS: NEURONTIN 200 MG PO ×3 (08:06→21:45)
[2024-06-01] MEDS: COREG 3.125 MG PO ×2 (08:07→20:21)
[2024-06-01] MEDS: COLACE PO ×2 (08:07→20:27)
[2024-06-01] MEDS: PEPCID 20 MG PO ×2 (08:07→20:21)
[2024-06-01 14:52] VITALS: BP 144/78
[2024-06-01] MEDS: LIPITOR 20 MG PO (21:45)
[2024-06-01] MEDS: ZESTRIL 5 MG PO (21:47)
[2024-06-01 23:05] VITALS: BP 114/69
[2024-06-02] MEDS: TORADOL 15 MG IV ×2 (03:43→09:53)
[2024-06-02] MEDS: TYLENOL 650 MG PO ×2 (03:43→09:53)
[2024-06-02 07:28] VITALS: BP 141/75
[2024-06-02] MEDS: PEPCID 20 MG PO (09:53)
[2024-06-02] MEDS: COLACE PO (09:53)
[2024-06-02] MEDS: NEURONTIN 200 MG PO (09:53)
[2024-06-02] MEDS: FLUSH (NSS) 1 FLUSH IV (09:54)
[2024-06-02] MEDS: COREG 3.125 MG PO (09:56)
--- NOTE | 2024-06-02 10:28 | CM ---
Addendum entered by Aileen Gomez RN 06/02/24 11:45:
CM updated patient's son with mixing picker tender time.
Addendum entered by Aileen Gomez RN 06/02/24 11:21:
Patient has been accepted to [facility]. Patient's family and patient are in agreement with plan. CM updated bedside RN.
[facility]
[phone]
fax
[phone]
Addendum entered by Aileen Gomez RN 06/02/24 10:52:
[facility] is unable to accept.
Original Note:
Patient is now requesting placement. CM will send referrals to [facility], [facility].
[2024-06-02] MEDS: TYLENOL PO (12:00)
[2024-06-02 13:19] VITALS: BP 138/69
--- NOTE | 2024-06-02 13:54 | PTCARENOTE ---
attempted to give nursing report to Adalberto. called [phone] and left message. await return call.
--- NOTE | 2024-06-02 15:47 | PTCARENOTE ---
[facility] returned call and verbal nursing report given at this time.
--- NOTE | 2024-06-22 11:55 | OR.RPT ---
Operative Report
Operative Report
Date of Surgery: May 28, 2024
Primary Surgeon: Unruly Maria M.D.
Pre-op Diagnosis: Metastatic left adrenal tumor
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
Procedure Performed: Exploratory laparotomy, resection of the gastric GIST and attempted resection of the left adrenal tumor
Anesthesia Type: General
Specimen: Gastric tumor
Estimated Blood Loss: 50cc
Complications: None
Operative Findings: A large left adrenal metastatic tumor involving the left kidney vessels and the aorta
Procedure:
The patient was brought to the operating room and positioned in the standard supine position. A Siddiqi catheter was inserted. The patient was successfully intubated. The abdomen was prepped and draped in a typical sterile method.
A midline incision was made using a #10 scalpel, cutting through the skin into the subcutaneous tissue. The fascia was divided, allowing entry into the abdominal cavity, which was then explored. The liver was palpated and no lesions were detected.
There was no evidence of peritoneal seeding. The bowel was examined, and a small nodule was noted on the anterior wall of the stomach. This nodule was excised without entering the stomach and sent to pathology for a frozen section analysis, which
indicated findings consistent with a gastrointestinal stromal tumor.
Further exploration revealed a large left adrenal tumor that was adherent to the surrounding structures, lacking any discernible planes. The left renal artery and vein were inseparable from the tumor. Additionally, the tumor was found to be
involving the left lateral wall of the aorta. A significant amount of time was spent attempting to separate the tumor from the aorta, but this effort was unsuccessful. Given these findings, a decision was made to abort the surgery.
Hemostasis was obtained. The fascia was reapproximated with #0 loop PDS suture in a running fashion. The subcutaneous tissue was approximated with #3 Vicryl in a running fashion. The skin was approximated with #4 Monocryl in a running subcuticular
fashion. Steri-Strips and saddle dressings were applied. The patient was extubated without any problem. The final needle, sponge, and instrument counts were correct. The patient was transferred to the recovery room.
== END 2024-06-02 14:23 | DRG 327 ==
LOC: 2 SOUTH 09:42
PROVIDERS: ADMITTING PHYSICIAN Surgery
PROC: 0DB60ZZ Excision of Stomach, Open Approach (ICD-10-PCS; 2024-05-28)
DX: C49.A2 Gastrointestinal stromal tumor of stomach (principal); C49.A9 Gastrointestinal stromal tumor of other sites; Z53.8 Procedure and treatment not carried out for other reasons; I10 Essential (primary) hypertension; I25.10 Atherosclerotic heart disease of native coronary artery without angina pectoris; I25.5 Ischemic cardiomyopathy; Z85.038 Personal history of other malignant neoplasm of large intestine
CPT/HCPCS: 88305; 88332; 80048; 80053; 82150; 83690; 85027; 85610; 86803; 86850; 86900; 86901; 86920; 88331; 88341; 88342; 88360; 88374; 97116; 97163; 97167; 97530; A4648; C1776; C9250

== ENCOUNTER → 2024-06-05 09:25 | Outpatient (REF) | payer MEDICARE, SELFPAY ==
[2024-06-05 11:02] LABS: Hematocrit 32.8 % (39.0-52.0); Hemoglobin 10.9 g/dL (13.0-18.0); Mean Corp Hgb Conc. 33.2 g/dL (33.0-37.0); Mean Corpuscular Volume 96.2 fL (80.0-94.0); Mean Platelet Volume 9.8 fL (7.4-10.4); Platelet Count 182 10^3/uL (130-400); Red Blood Cell Count 3.41 10^6/uL (4.70-6.10); Red Cell Dist. Width 13.2 % (11.5-14.5); White Blood Cell Count 5.4 10^3/uL (4.8-10.8)
[2024-06-05 11:26] LABS: ALT (SGPT) 23 U/L (0-50); AST (SGOT) 22 U/L (17-59); Albumin 2.9 g/dl (3.5-5.0); Alkaline Phosphatase 69 U/L (38-126); Blood Urea Nitrogen 15 mg/dl (9-20); Calcium 9.6 mg/dl (8.4-10.2); Carbon Dioxide 26 mmol/L (22-30); Chloride 106 mmol/L (98-107); Glucose 89 mg/dl (70-99); Potassium 4.5 mmol/L (3.5-5.1); Sodium 139 mmol/L (135-145); Total Bilirubin 0.9 mg/dl (0.2-1.3); Total Protein 5.6 g/dl (6.3-8.2); eGFR > 60.00
== END ==
LOC: OLABWHC 09:25
PROVIDERS: ATTENDING PHYSICIAN Family Medicine
DX: I10 Essential (primary) hypertension (principal)
CPT/HCPCS: 36415; 80053; 83735; 85027

== ENCOUNTER 2024-06-09 06:09 | Inpatient (IN) | payer MEDICARE, SELFPAY ==
[2024-06-08 23:26] VITALS: BMI 24.3
[2024-06-08 23:27] VITALS: BP 99/63
[2024-06-08 23:34] VITALS: BP 85/65
[2024-06-08 23:36] VITALS: BP 99/63
[2024-06-08 23:38] VITALS: BP 99/63
[2024-06-08 23:58] LABS: % Basophils 0.5 % (0-2); % Eosinophils 0.8 % (0-6); % Immature Granulocytes 1.1 % (0-0.5); % Lymphocytes 11.2 % (20.5-51.1); % Monocytes 8.2 % (1.7-9.3); % Neutrophils 78.2 % (42.2-75.2); Absolute Basophils 0.1 10^3/uL (0-0.2); Absolute Eosinophils 0.1 10^3/uL (0-0.7); Absolute Immature Granulocytes 0.1 10^3/uL (0-0.05); Absolute Lymphocytes 1.1 10^3/uL (1.2-3.4); Absolute Monocytes 0.8 10^3/uL (0.1-0.6); Absolute Neutrophils 7.6 10^3/uL (1.4-6.5); Hemoglobin 8.7 g/dL (13.0-18.0); Mean Corp Hgb Conc. 33.5 g/dL (33.0-37.0); Mean Corpuscular Hgb 32.3 pg (27.0-31.0); Mean Corpuscular Volume 96.7 fL (80.0-94.0); Mean Platelet Volume 9.3 fL (7.4-10.4); Nucleated Red Blood Cells % 0 % (-); Platelet Count 249 10^3/uL (130-400); Red Blood Cell Count 2.69 10^6/uL (4.70-6.10); Red Cell Dist. Width 13.6 % (11.5-14.5); White Blood Cell Count 9.7 10^3/uL (4.8-10.8)
[2024-06-09] VITALS (25 sets, daily range): BP systolic 87–146; BP diastolic 60–86; BMI 24.5
[2024-06-09 00:08] LABS: ALT (SGPT) 16 U/L (0-50); AST (SGOT) 19 U/L (17-59); Alkaline Phosphatase 56 U/L (38-126); Blood Urea Nitrogen 36 mg/dl (9-20); Calcium 9.2 mg/dl (8.4-10.2); Carbon Dioxide 18 mmol/L (22-30); Chloride 108 mmol/L (98-107); Estimated Creatinine Clearance 81 ml/min; Glucose 167 mg/dl (70-99); Potassium 4.8 mmol/L (3.5-5.1); Sodium 137 mmol/L (135-145); Total Bilirubin 0.7 mg/dl (0.2-1.3); Total Protein 5.6 g/dl (6.3-8.2); eGFR > 60.00
[2024-06-09] MEDS: NSS 1000 IV (00:30)
--- NOTE | 2024-06-09 01:02 | ED.GENMED ---
History of Present Illness
<Reggie Simpson DO - Last Filed: 06/09/24 01:23>
General
Chief Complaint: Rectal Bleeding
Time Seen by Provider: 06/09/24 00:23
<Zahira Key PA-C - Last Filed: 06/09/24 08:14>
General
Source: patient
Exam Limitations: none
Nursing documentation reviewed up to this point in time: agreed with
History of Present Illness
History of Present Illness:
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 Patient reports that he comes from a
rehab facility and reports that a few hours ago, he suddenly started to feel dizzy and lightheaded when he subsequently had an episode of explosive bloody diarrhea. Patient states that he still is having some maroon stools. Patient also notes
intermittent crampy abdominal pain and nausea. Patient states that he still feels a bit lightheaded but feels okay if he stays still. He denies any chest pain or shortness of breath. He denies any recent sick contacts any fevers or chills.
Patient states that he recently had procedure done in May 27 in an attempt to reduce his tumor burden however they were not able to fully get all of the tumor out due to its location around the aorta and kidneys, and are looking into other
options such as chemotherapy and radiation.
Past History
<Zahira Key PA-C - Last Filed: 06/09/24 08:14>
Past History
ED Past Medical History: CAD, Cancer (Prostate and colon), HTN, Hypercholesterolemia, PR, Other (myelodysplastic syndrome), Other (left adrenal mass) and Other (Prostate cancer, bilateral hearing impairment)
ED Past Surgical History: Cardiac (2 cardiac stents and an automatic internal cardiac defibrillator placed. Cardiac arrest.) and Urological (Prostatectomy)
Social History
Tobacco: Former smoker
Drug: None
Personal:
Living: with family
Employment: Retired
Family History
Family History: Other
Review of Systems
<Zahira Key PA-C - Last Filed: 06/09/24 08:14>
Review of Systems
All Other Systems: ROS reviewed and negative except as documented in HPI and ROS
Phy Exam
<Zahira Key PA-C - Last Filed: 06/09/24 08:14>
Physical Exam
Physical Exam:
General: Patient is ill appearing
Skin: Pallor, non rashes or lesions
Head: Normocephalic, atraumatic
Eyes: Sclera non-icteric. EOMs intact.
Cardiac: Regular rate and rhythm, no murmurs
Peripheral Vascular: No lower extremity swelling or edema
Pulm: Normal respiratory effort, no wheezes, rales, rhonchi
Abdomen: No abdominal tenderness to palpation
Genitourinary: Maroon colored heme positive stool within rectal vault
Neuro: CN II-XII intact, no focal neurologic deficits.
Psychiatric: Appropriate mood and affect
Course
<Reggie Simpson DO - Last Filed: 06/09/24 01:23>
Orders/Labs/Results
Orders:
Orders
06/08/24 23:45
CMP [Comprehensive Metabolic Panel] Urgent
Complete Blood Count/With Diff Urgent
06/09/24 00:47
CT Angio Abd/Pelvis w/wo IV [CT Abd/pelvis Angio W/wo Iv] Urgent
Comment:
Reason For Exam: brisk maroon stools bleeding, abdominal pain
Ondansetron Injectable [Zofran] 4 mg IV NOW STA
06/09/24 00:48
Blood Bank Products [* Blood Bank Products] Urgent
Blood Bank Products: *Packed RBC Leuko(PRBC's)
Quantity: 1
Transfuse Today: Yes
Reason: Bleeding
06/09/24 01:02
Type+Screen Urgent
06/09/24 01:06
0.9% Sodium Chloride 1000 ml [Nss] 1,000 ml IV BOLUS
06/09/24 01:22
Pantoprazole [Protonix IV] 80 mg IV NOW STA
06/09/24 01:30
Pantoprazole 80 mg/100 ml Nss [Protonix] 80 mg in 100 ml IV Q10H
06/09/24 01:43
Heparin Pf [Heparin Lock Flush] 500 unit .ROUTE .STK-MED ONE
06/09/24 03:00
Flush (0.9% Sodium Chloride) [Flush (Nss)] See Dose Instructions IV PER PROTOCOL
06/09/24 05:49
Admit/Transfer Patient As Directed
Co-Sign Provider:
Level of Care: Inpatient admission
Assign to:: Telemetry
Physician / Group: hospitalist
Diagnosis: gi bleed
Reason for Telemetry: Other
Other Reason for Telemetry: gi bleed
Date to Stop Telemetry: 06/11/24
Time to Stop Telemetry: 11:00
Reason for Hospitalization: gi bleed
Expected length of stay greater than two midnights?: Yes
ELOS- Estimated Length of Stay in days: 2
I certify the patient meets the requirements for IP care: Yes
06/09/24 05:50
Code Status As Directed
Resuscitation Status: Full Code
06/09/24 Breakfast
NPO
Allow oral meds: Yes
Allow clear liquids: Sips of Clears
06/09/24 06:06
Dextrose 5%/0.9%Sodchl 1000 ml [D5/0.9% Sodium Chloride] 1,000 ml IV 100 mls/hr
06/09/24 06:21
Ondansetron Injectable [Zofran] 4 mg IV Q6HPRN PRN
06/09/24 06:21
GASTROINTESTINAL CONSULT Routine
Consulting Provider: Jose Elias Espinosa
Was physician already notified: Yes
Reason for consult: GI bleed
Activity As Directed
Activity Level: With Assistance
INT (Intravenous Needle Therapy) As Directed
Comment: Place 2 IV catheters of the largest bore possible until stable
Orthostatic Vital Signs As Directed
Orthostatic VS Frequency: Daily
Pneumatic Compression Sleeves As Directed
Type: Knee high
Vital Signs As Directed
Frequency: Per unit guidelines
DX Deep Vein Thrombosis Video Routine
06/09/24 14:00
H&H Q8H
06/10/24 06:00
Basic Metabolic Panel IN AM
Complete Blood Count/No Diff IN AM
PTT IN AM
Prothrombin Time IN AM
06/11/24 11:00
DC Protocol for Telemetry ONCE
Abnormal Lab Results
06/08/24 06/09/24
23:45 01:02
RBC 2.69 L 10^6/uL
(4.70-6.10)
Hgb 8.7 L D g/dL
(13.0-18.0)
Hct 26.0 L %
(39.0-52.0)
MCV 96.7 H fL
(80.0-94.0)
MCH 32.3 H pg
(27.0-31.0)
Abs Immat Gran (auto) 0.1 H 10^3/uL
(0-0.05)
Absolute Neuts (auto) 7.6 H 10^3/uL
(1.4-6.5)
Absolute Lymphs (auto) 1.1 L 10^3/uL
(1.2-3.4)
Absolute Monos (auto) 0.8 H 10^3/uL
(0.1-0.6)
Immature Gran % 1.1 H %
(0-0.5)
Neutrophils % 78.2 H %
(42.2-75.2)
Lymphocytes % 11.2 L %
(20.5-51.1)
Chloride 108 H mmol/L
(98-107)
Carbon Dioxide 18 L mmol/L
(22-30)
BUN 36 H mg/dl
(9-20)
Glucose 167 H mg/dl
(70-99)
Total Protein 5.6 L g/dl
(6.3-8.2)
Albumin 3.0 L g/dl
(3.5-5.0)
Crossmatch IS Only See Detail
06/08/24 23:45
06/08/24 23:45
Vital Signs
Initial and Last Documented VS:
Initial Vital Signs
Temp Pulse Resp BP Pulse Ox
97.7 F 78 21 99/63 99
06/08/24 23:27 06/08/24 23:27 06/08/24 23:27 06/08/24 23:27 06/08/24 23:27
Last Documented Vital Signs
Temp Pulse Resp BP Pulse Ox
98.0 F 72 18 124/73 98
06/09/24 05:04 06/09/24 06:15 06/09/24 06:15 06/09/24 06:00 06/09/24 06:15
Eleanorlt;Zahira Key PA-C - Last Filed: 06/09/24 08:14>
Orders/Labs/Results
Orders:
Orders
06/08/24 23:45
CMP [Comprehensive Metabolic Panel] Urgent
Complete Blood Count/With Diff Urgent
06/09/24 00:47
CT Angio Abd/Pelvis w/wo IV [CT Abd/pelvis Angio W/wo Iv] Urgent
Comment:
Reason For Exam: brisk maroon stools bleeding, abdominal pain
Ondansetron Injectable [Zofran] 4 mg IV NOW STA
06/09/24 00:48
Blood Bank Products [* Blood Bank Products] Urgent
Blood Bank Products: *Packed RBC Leuko(PRBC's)
Quantity: 1
Transfuse Today: Yes
Reason: Bleeding
06/09/24 01:02
Type+Screen Urgent
06/09/24 01:06
0.9% Sodium Chloride 1000 ml [Nss] 1,000 ml IV BOLUS
06/09/24 01:22
Pantoprazole [Protonix IV] 80 mg IV NOW STA
06/09/24 01:30
Pantoprazole 80 mg/100 ml Nss [Protonix] 80 mg in 100 ml IV Q10H
06/09/24 01:43
Heparin Pf [Heparin Lock Flush] 500 unit .ROUTE .STK-MED ONE
06/09/24 03:00
Flush (0.9% Sodium Chloride) [Flush (Nss)] See Dose Instructions IV PER PROTOCOL
06/09/24 05:49
Admit/Transfer Patient As Directed
Co-Sign Provider:
Level of Care: Inpatient admission
Assign to:: Telemetry
Physician / Group: hospitalist
Diagnosis: gi bleed
Reason for Telemetry: Other
Other Reason for Telemetry: gi bleed
Date to Stop Telemetry: 06/11/24
Time to Stop Telemetry: 11:00
Reason for Hospitalization: gi bleed
Expected length of stay greater than two midnights?: Yes
ELOS- Estimated Length of Stay in days: 2
I certify the patient meets the requirements for IP care: Yes
06/09/24 05:50
Code Status As Directed
Resuscitation Status: Full Code
06/09/24 Breakfast
NPO
Allow oral meds: Yes
Allow clear liquids: Sips of Clears
06/09/24 06:06
Dextrose 5%/0.9%Sodchl 1000 ml [D5/0.9% Sodium Chloride] 1,000 ml IV 100 mls/hr
06/09/24 06:21
Ondansetron Injectable [Zofran] 4 mg IV Q6HPRN PRN
06/09/24 06:21
GASTROINTESTINAL CONSULT Routine
Consulting Provider: Jose Elias Espinosa
Was physician already notified: Yes
Reason for consult: GI bleed
Activity As Directed
Activity Level: With Assistance
INT (Intravenous Needle Therapy) As Directed
Comment: Place 2 IV catheters of the largest bore possible until stable
Orthostatic Vital Signs As Directed
Orthostatic VS Frequency: Daily
Pneumatic Compression Sleeves As Directed
Type: Knee high
Vital Signs As Directed
Frequency: Per unit guidelines
DX Deep Vein Thrombosis Video Routine
06/09/24 14:00
H&H Q8H
06/10/24 06:00
Basic Metabolic Panel IN AM
Complete Blood Count/No Diff IN AM
PTT IN AM
Prothrombin Time IN AM
06/11/24 11:00
DC Protocol for Telemetry ONCE
Abnormal Lab Results
06/08/24 06/09/24
23:45 01:02
RBC 2.69 L 10^6/uL
(4.70-6.10)
Hgb 8.7 L D g/dL
(13.0-18.0)
Hct 26.0 L %
(39.0-52.0)
MCV 96.7 H fL
(80.0-94.0)
MCH 32.3 H pg
(27.0-31.0)
Abs Immat Gran (auto) 0.1 H 10^3/uL
(0-0.05)
Absolute Neuts (auto) 7.6 H 10^3/uL
(1.4-6.5)
Absolute Lymphs (auto) 1.1 L 10^3/uL
(1.2-3.4)
Absolute Monos (auto) 0.8 H 10^3/uL
(0.1-0.6)
Immature Gran % 1.1 H %
(0-0.5)
Neutrophils % 78.2 H %
(42.2-75.2)
Lymphocytes % 11.2 L %
(20.5-51.1)
Chloride 108 H mmol/L
(98-107)
Carbon Dioxide 18 L mmol/L
(22-30)
BUN 36 H mg/dl
(9-20)
Glucose 167 H mg/dl
(70-99)
Total Protein 5.6 L g/dl
(6.3-8.2)
Albumin 3.0 L g/dl
(3.5-5.0)
Crossmatch IS Only See Detail
06/08/24 23:45
06/08/24 23:45
Vital Signs
Initial and Last Documented VS:
Initial Vital Signs
Temp Pulse Resp BP Pulse Ox
97.7 F 78 21 99/63 99
06/08/24 23:27 06/08/24 23:27 06/08/24 23:27 06/08/24 23:27 06/08/24 23:27
Last Documented Vital Signs
Temp Pulse Resp BP Pulse Ox
98.0 F 72 18 124/73 98
06/09/24 05:04 06/09/24 06:15 06/09/24 06:15 06/09/24 06:00 06/09/24 06:15
Eleanorlt;Zahira Key PA-C - Last Filed: 06/09/24 08:14>
MDM/Problems Addressed
Differential Diagnosis Includes:
ddx include gastroenteritis, bleeding tumor, gastritis, duodenitis, diverticulosis, colitis
MDM/Problems Addressed:
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 He also had a pre-syncope episode.
Hemoglobin has decreased 2 points over a 3 day period and he is hypotensive and has heme positive stool on exam. Pt given IV fluids. PPI drip initiated blood products consent obtained and RBCs given. CTA negative for acute bleeding. Patient referred
for admission.
<Zahira Key PA-C - Last Filed: 06/09/24 08:14>
*Pulse Oximetry
Patient hypoxic: no
*Critical Care Note
Total Time (30-74mins, 75-104mins- exclusive of procedures): Not Applicable
Data Reviewed
Review of Other/Old Records Reveals: Records (reviewed discharge summary from 06/01/2024)
Source: patient and records
<Zahira Key PA-C - Last Filed: 06/09/24 08:14>
Patient Management
Discussion with other providers: Hospitalist
Escalation/DeEscalation of care consider admission/obs:
Patient referred for admission
ED Attending Note
<Reggie Simpson DO - Last Filed: 06/09/24 01:23>
ED Attending Note
Patient seen and examined by attending physician: Yes
I performed the substantive portion of visit, reviewed & personally made and approve the management plan that is documented in note by myself or KVNG.: Yes
ED Attending Note:
Pleasant 78-year-old male presents for [facility] with bloody and dark stools. Patient states that he had a large bowel movement around 9 PM and nursing stated that it was bloody. He has a history of GI bleed. He did have abdominal
surgery here at [place] on the . Patient was seen in conjunction with the PA. I reviewed and agree with her history and care plan. Amendment physical exam patient is pale, but resting comfortably in minimal acute distress. Abdomen is soft
with generalized tenderness to palpation. Good bowel sounds x 4 quadrants. Patient moves all 4 extremities. He is mentating appropriately.
Blood consent signed and is on the chart. Protonix started. Patient to be admitted to the hospitalist service.
<Zahira Key PA-C - Last Filed: 06/09/24 08:14>
-
Portions of this chart may have been created with voice recognition software.� Occasional wrong word or��sound alike� substitutions may have occurred due to the inherent limitations of voice recognition software.
Discharge Plan
Departure
Patient Disposition: Admit
Date of Disposition: 06/09/24
Time of Disposition: 03:55
Admit to: Med/Surg
Presentation/result/management discussed w/ accepting MD/DO: Hospitalist
Patient with high blood pressure during this ER visit?: Yes
Condition: Fair
Discharge Problem:
Acute GI bleeding, Colon cancer
Interventions
Interventions:
*Risk Screen - Suicide Last Done: 06/08/24 23:39
*General Assessment Last Done: 06/08/24 23:39
*Neglect/Abuse Screening Last Done: 06/08/24 23:41
*ED- Fall Risk Assessment Last Done: 06/09/24 01:04
*ED COVID-19 Vaccine History Last Done: 06/08/24 23:45
LF-Oexuwi-Gpocztbnpv Assessment Last Done: 06/09/24 00:20
ED- Cardiac Assessment Last Done: 06/09/24 00:13
ED- Pulmonary Assessment Last Done: 06/09/24 00:20
[2024-06-09] MEDS: ZOFRAN 4 MG IV (01:09)
[2024-06-09] MEDS: PROTONIX IV 80 MG IV (01:37)
[2024-06-09] MEDS: PROTONIX 100 IV (02:52)
--- NOTE | 2024-06-09 05:40 | HPS.HSE ---
Family Physician
-
Family Physician: NOT KNOW UNKNOWN - PT DOES
Chief Complaint
-
Rectal bleeding
History of Present Illness
Patient is a 78-year-old with past medical history significant for CAD in the remote past on aspirin, VT status post defibrillator, myelodysplastic syndrome, history of metastatic colon cancer status post colon resection with subsequent solitary
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
He reports nausea and dry heaves but no recent episodes of melena or hematochezia up until to coming to the emergency department. He said he had no abdominal pain. He just had a diarrheal episode and was found to have maroon-colored stool followed
by a presyncopal episode.
The emergency department was found to have heme positive stool.
Blood pressure was 93/60 with a pulse of 70 and was satting at 9% on room air. Hemoglobin was 8.7 down from 11 3 days ago. Platelet count was normal. Coags were normal. Electrolytes were BUN/creatinine were stable except BUN is notably high at
36.
CT angio of the abdomen pelvis shows no evidence of active GI hemorrhage, there was wall thickening of loops of small bowel within the right abdomen along with gastric wall thickening which may represent gastroenteritis.
Medical History
Past Medical History
Past Medical History: Reports Other (see below )
Additional Past Medical History:
Renal mass
Inferior [place] 1994 s/p RCA PCI
Cardiac arrest due to VT 2014 secondary to CAD/WA resulting in circ PCI 03/2014
HX ischemic CM s/p Medtronic dual chamber ICD with recovered EF by last echo 2016
HX NSVT
HX VT ablation 2015
HTN
HLD
HX prostate cancer s/p prostatectomy
Past Surgical History: Reports Bowel Resection (Status post right colectomy 09/24/18 R colon mass, partially obstructing with prominent lymph nodes and questionable muscle invasion) and Cardiac (s/p Medtronic dual chamber ICD with recovered EF by
last echo 2016, HX VT ablation 2015)
Social History
Tobacco: Non-smoker
Alcohol: None
Drug: None
Family History
Family History: Not pertinent
Allergies / Home Medications
Allergies reflects when Allergies were last updated in [email or web address].
Home Medications with original date entered in [email or web address]
Allergy/Medication List:
Allergies
Allergy/AdvReac Type Severity Reaction Status Date / Time
adhesive Allergy Rash Verified 05/28/24 09:35
niacin Allergy Unknown Verified 05/28/24 09:35
Home Medications
aspirin 81 mg tablet,delayed release 81 mg PO Q48H@2200 Blood clot prevention/tx 06/06/15
carvedilol 3.125 mg tablet 3.125 mg PO BID Heart disease/condition 06/06/15
lisinopril 5 mg tablet 5 mg PO HS Blood pressure 01/26/21
atorvastatin 20 mg tablet 20 mg PO HS High Cholesterol 02/28/23
oxycodone 5 mg tablet 5 - 10 mg PO TID Pain 05/20/24
docusate sodium 100 mg capsule (Colace) 100 - 200 mg PO TID Constipation 05/27/24
Review of Systems
-
History Source: Patient
Constitutional: Reports No Symptoms
EENT: Reports No Symptoms
Respiratory: Reports No Symptoms
Cardiac: Reports No Symptoms
Abdomen/GI: Reports Diarrhea and Bloody Stools
: Reports No Symptoms
Musculoskeletal: Reports No Symptoms
Skin: Reports No Symptoms
Neurological: Reports No Symptoms
Endocrine: Reports No Symptoms
Hematologic/Lymphatic: Reports No Symptoms
Psych: Reports No Symptoms
Physical Exam
Vital Signs
Vital Signs
Temp Pulse Resp BP Pulse Ox
98.0 F 70 16 93/60 99
06/09/24 05:04 06/09/24 05:04 06/09/24 05:04 06/09/24 05:04 06/09/24 05:04
Physical Exam
General: Well Developed, Well Nourished, No Apparent Distress and Comfortable
HEENT: NormoCephalic, Anicteric, Moist mucous membranes and Atraumatic
Respiratory: Clear
Cardiac: S1/S2 and Regular Rhythm
GI: Soft, Non Tender, Non Distended and Normal Bowel Sounds
Rectal: Hem Positive
Genito-urinary: Deferred by me
Musculoskeletal: No Clubbing, No Cyanosis and No Edema
Skin: Warm
Neuro: AO x 3 and Nonfocal/grossly intact
Hematologic/Lymphatic: No Lymphadenopathy
Psych: Calm
Laboratory Results
-
06/08/24 23:45
06/08/24 23:45
Laboratory Results
Total Bilirubin 0.7 mg/dl (0.2-1.3) 06/08/24 23:45
AST 19 U/L (17-59) 06/08/24 23:45
ALT 16 U/L (0-50) 06/08/24 23:45
Alkaline Phosphatase 56 U/L (38-126) 06/08/24 23:45
Data Reviewed
-
CT Scan: Report Reviewed by me
Lab Data: Labs Reviewed by me
Old Records: Reviewed
Impression/Plan
-
IMPRESSION:
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 There was diarrhea with maroon-colored stool. Denies any black
stool. He had a drop in hemoglobin from 11 to 8.7. Blood pressure was 93/60. Patient alert oriented and in no acute distress. He is otherwise hemodynamically stable. History suggestive of significant upper GI bleed possibly versus lower GI
bleed. There is no diverticulitis. Possible gastroenteritis. No active bleeding on CT scan.
PLAN:
GI bleed
-Admit to telemetry
-Clear liquid diet for now
-Type and screen, transfused 1 unit in the ED, H&H every 6 and transfuse for hemoglobin less than 7
-IV fluids okay will give 1 bolus of normal saline
-PPI IV drip for now
-GI consultation
Other issues
� Hold lisinopril
� Hold atorvastatin
� Hold aspirin
� Hold carvedilol
DVT prophylaxis�SCDs
CODE STATUS�full code
[2024-06-09] MEDS: D5/0.9% SODIUM CHLORIDE 1000 IV ×2 (06:24→15:40)
--- NOTE | 2024-06-09 07:02 | CON.GI ---
Addendum entered and electronically signed by Matilda Velazquez MD 06/09/24 15:30:
I saw and examined the patient.
The OPERATING ROOM TECH or PA's note was reviewed and I agree with the note.
Comment:
Pt is a 78 y/o man with a hx of VT, AICD, colon cancer/right hemicolecto,y with mets, s/p radiation, also recent mets to adrenal with resection of SB, GIST who had bloody stool and presyncope yesterday. Last colonoscopy in 2022 with diverticulosis,
polyps and was due again for colonoscopy in 2023. In ER bleeding has stopped.
abd: stitches/tape on abdomen clean
nontender
impression:
metastatic colon cancer
rectal bleeding
GIST
plan:
monitor hgb (drop by 2 gram from baseline initally)
if bleeding continues may need CTA in light of recent SB resection/surgery
elective colonoscopy overdue, timing to be determined
Dr. Maria follow up
ok for clears
transfuse if needed
Original Note:
Consultation
-
Date/Time Consultation Requested: 06/09/24 0620
Date/Time Consultation Performed: 06/09/24 1040
Requesting Provider: Anuj Wong MD
Performing Provider: AVANI Cervantes, Mirlande Espinosa MD
Reason for Consultation: bloody stools
Medical History
Chief Complaint / HPI
Chief Complaint: rectal bleeding
History of Present Illness:
Pt is a 78yo with hx VT with prior cardiac arrest, AICD, prior ablation, CAD, HTN, hyperlipidemia, MDS, prostate CA with prostatectomy, colon CA with prior chemo right colectomy 2018, with mets to lung (s/p radiation 2021), hilum, and recent
adrenal mets 2024. He had recent admission with 05/28/24- large left adrenal tumor involving left kidney, vessels and aorta. Extensive attempt was made to peel tumor off aorta without success. There was also SB resection completed per review with
Dr. Maria and tumor noted arising from stomach with resection and path c/W gastrointestinal stromal tumor low grade with tumor extending to tissues edge. Pt now presents with bloody stools with pre syncope. CTA on admission neg for bleeding source
but noted progression of metastatic disease and some drop in hbg 10.9 06/05 then 8.7 on admission 06/08.
In review with patient he states he was doing well post surgery. He does admit to abdominal pain post procedure. He admits to taking narcotic along with Tylenol. He typically will have stools every several days but admits to constipation and
started laxative regiment at [facility]. He then passed large stool with liquid and sent to ER for eval as nursing staff concerned for bleeding. Pt recall stools as more brown in color from what he was able to seen. Since admission he admits to flatus
but no stools. Pt admits to GERD, nausea with dry heaves but denies vomiting, or black stools. Last colonoscopy completed with Dr. Naqvi 2022 with patent anastomosis, 5 mm TC polyp, diverticulosis, tattoo noted, IH bx TA. PT was due 1 year follow
up but not completed.
Past Medical History
Past Medical History: Arrhythmias (VT with cardiac arrest ), CAD, Cancer (prostate CA, colon CA with prior chemo 2018, with mets to lung (s/p radiation 2021), hilum, adrenal 2024 attempted resection, low grade GIST resection 2024), HTN,
Hypercholesterolemia and Other (ischemic CM, atrophic pancreatitis, pancreatic head cyst likely IPMN, gallstone pancreatitis, drug induced polyneuropathy, MDS)
Past Surgical History: Bowel Resection (right colectomy 2018 partially obstructiong with prominent lymph nodes and questionable muscle invasion), Cardiac (AICD, VT ablation ), Tonsilectomy and Urological (prostatectomy)
Social History
Tobacco: Former Smoker (quit 2002)
Alcohol: Occasional
Drug: None
Personal:
Living: With Family (but currently at [facility])
Employment: Retired
Family History
Family History: Adopted
Allergies / Home Medications
Allergy/AdvReac Type Severity Reaction Status Date / Time
adhesive Allergy Rash Verified 05/28/24 09:35
niacin Allergy Unknown Verified 05/28/24 09:35
�Medication �Instructions �Recorded
aspirin 81 mg tablet,delayed 81 mg PO Q48H@2200 Blood clot 06/06/15
release prevention/tx
carvedilol 3.125 mg tablet 3.125 mg PO BID Heart 06/06/15
disease/condition
lisinopril 5 mg tablet 5 mg PO HS Blood pressure 01/26/21
atorvastatin 20 mg tablet 20 mg PO HS High Cholesterol 02/28/23
oxycodone 5 mg tablet 5 - 10 mg PO TID Pain 05/20/24
docusate sodium 100 mg capsule 100 - 200 mg PO TID Constipation 05/27/24
(Colace)
Review of Systems
-
History Source: Patient
Constitutional: Reports Weight Loss (over time with cancer )
EENT: Reports No Symptoms
Respiratory: Reports No Symptoms
Cardiac: Reports No Symptoms
Abdomen/GI: Reports Abdominal Pain, Nausea, Diarrhea and Constipated
: Reports No Symptoms
Musculoskeletal: Reports No Symptoms
Skin: Reports No Symptoms
Neurological: Reports Weakness
Endocrine: Reports No Symptoms
Hematologic/Lymphatic: Reports Bleeding (prior to admission)
Vital Signs
Temp Pulse Resp BP Pulse Ox
98.0 F 72 18 124/73 98
06/09/24 05:04 06/09/24 06:15 06/09/24 06:15 06/09/24 06:00 06/09/24 06:15
Physical Exam
Exam
General: Well Developed, Well Nourished and No Apparent Distress
HEENT: Normocephalic and Anicteric
Respiratory: Clear
Cardiac: Regular Rhythm
GI: Soft, Non Tender, Non Distended and Other (mid abdominal incision intact with steri strips)
Musculoskeletal: No Clubbing and No Cyanosis
Skin: Warm and Dry
Neuro: Awake, Alert and AO x 3
Psych: Calm
Results
WBC 9.7 10^3/uL (4.8-10.8) 06/08/24 23:45
Hgb 8.7 g/dL (13.0-18.0) L D 06/08/24 23:45
Hct 26.0 % (39.0-52.0) L 06/08/24 23:45
MCV 96.7 fL (80.0-94.0) H 06/08/24 23:45
Plt Count 249 10^3/uL (130-400) D 06/08/24 23:45
Absolute Neuts (auto) 7.6 10^3/uL (1.4-6.5) H 06/08/24 23:45
Sodium 137 mmol/L (135-145) 06/08/24 23:45
Potassium 4.8 mmol/L (3.5-5.1) 06/08/24 23:45
Chloride 108 mmol/L (98-107) H 06/08/24 23:45
Carbon Dioxide 18 mmol/L (22-30) L 06/08/24 23:45
BUN 36 mg/dl (9-20) H 06/08/24 23:45
Creatinine 0.8 mg/dL (0.7-1.3) 06/08/24 23:45
Calcium 9.2 mg/dl (8.4-10.2) 06/08/24 23:45
Total Bilirubin 0.7 mg/dl (0.2-1.3) 06/08/24 23:45
AST 19 U/L (17-59) 06/08/24 23:45
ALT 16 U/L (0-50) 06/08/24 23:45
Alkaline Phosphatase 56 U/L (38-126) 06/08/24 23:45
Diagnostic Image Results:
06/09/24 CT Abd/pelvis Angio W/wo Iv
1. No acute gastrointestinal hemorrhage is identified at CT. Advanced atherosclerotic changes as above.
2. Progression of pulmonary metastatic disease. Interval increase in size of left adrenal metastatic mass. As above, there are some new inflammatory changes surrounding the left adrenal mass and there is a small focus of gas adjacent to the mass.
These may represent sequela of the recent aborted attempted resection.
3. Intestinal postoperative changes as above, no obstruction.
4. Subacute fracture right 11th rib.
Prior GI Procedures:
EGD: none
Colonoscopy:Dr. Naqvi 2022 with patent anastomosis, 5 mm TC polyp, diverticulosis, tattoo noted, IH bx TA. PT was due 1 year follow up but not completed.
hx multiple colonoscopies in past
EUS:
2021 Christo for pancreatitis possible choledocholithiasis - There was no sign of significant pathology in the
common bile duct.
- Pancreatic parenchymal abnormalities consisting of
atrophy were noted in the entire pancreas.
- A cystic lesion was seen in the pancreatic head.
- There was no sign of significant pathology in the
ampulla.
- No specimens collected.
Assessment / Plan
-
Pt is a 78yo with hx VT with prior cardiac arrest, AICD, prior ablation, CAD, HTN, hyperlipidemia, MDS, prostate CA with prostatectomy, colon CA with prior chemo right colectomy 2018, with mets to lung (s/p radiation 2021), hilum, and recent
adrenal mets 2024. He had recent admission with 05/28/24- large left adrenal tumor involving left kidney, vessels and aorta. Extensive attempt was made to peel tumor off aorta without success. There was also SB resection completed per review with
Dr. Maria and tumor noted arising from stomach with resection and path c/W gastrointestinal stromal tumor low grade with tumor extending to tissues edge. Pt now presents with bloody stools with pre syncope. CTA on admission neg for bleeding source
but noted progression of metastatic disease and hbg 8.7 with prior hbg 06/06/24- 10.9. In review with patient he states he was doing well post surgery. He does admit to abdominal pain post procedure. He admits to taking narcotic along with
Tylenol. He typically will have stools every several days but admits to constipation and started laxative regiment at [facility]. He then passed large stool with liquid and sent to ER for eval as nursing staff concerned for bleeding. Pt recall stools as
more brown in color from what he was able to seen. Last colonoscopy completed with Dr. Naqvi 2022 with patent anastomosis, 5 mm TC polyp, diverticulosis, tattoo noted, IH bx TA. PT was due 1 year follow up but not completed. No prior EGD.
-rectal bleeding
-constipation then diarrhea
-symptomatic anemia
-05/28 recent attempted resection of adrenal mets with SB resection and resection of low grade GIST
-hx metastatic Colon CA with prior chemo right colectomy 2018, with mets to lung (s/p radiation 2021), hilum, and recent adrenal mets 2024
other med problems:
- VT with prior cardiac arrest/AICD/prior ablation
-CAD
- HTN
- hyperlipidemia
- MDS
-prostate CA with prostatectomy
PLAN:
Etiology of large stool with blood related to constipation --unclear amount of blood passes as pt recalls stool as mostly brown may have had some oozing with recent SB resection vs other
no further stool since last PM
hbg slight drop on admission 10.9 on 06/05 then 8.7 on admission
CTA neg for acute bleeding source
trend hbg
hold EGD for now with recent surgical intervention unless signs of aggressive bleeding
discussed via tiger text with Dr. Maria with admission
will have Dr. Maria see pt with recent surgical intervention and pt requesting review of surgical intervention and path
ok for clear diet no reds
will need OP follow up with Dr. Naqvi and oncology
-
-
Thank you for consultation and allowing me to participate in the patient's care. Please call the fire control system installer GI physician during the after hours with any questions or concerns.
--- NOTE | 2024-06-09 08:15 | W.PN.HOSP.TC ---
Today's Communication/Plan
-
GI/surgery Cx
Assessment / Plan
Assessment / Plan
IMPRESSION:
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 There was diarrhea with maroon-colored stool. Denies any black
stool. He had a drop in hemoglobin from 11 to 8.7. Blood pressure was 93/60. Patient alert oriented and in no acute distress. He is otherwise hemodynamically stable. History suggestive of significant upper GI bleed possibly versus lower GI
bleed. There is no diverticulitis. Possible gastroenteritis. No active bleeding on CT scan.
Assessment/plan:
Acute GI bleed
Recent stromal tumor resection
Keep n.p.o.
-Type and screen, transfused 1 unit in the ED, H&H every 6 and transfuse for hemoglobin less than 7
-IV fluids
-PPI IV drip for now
-GI consultation/surgical
Hold aspirin
Acute blood loss
Secondary to GI bleeding.
Transfuse as needed.
Monitor H&H
history of metastatic colon cancer
status post colon resection with subsequent solitary lung metastasis in 2021 status post radiotherapy
patient found to have large left adrenal underwent exploratory laparotomy, aborted resection of the adrenal tumor
gastrointestinal stromal tumor
s/p resection of the stomach mass.
History of hypertension
Hold lisinopril and carvedilol
CODE STATUS: Full code
DVT prophylaxis: SCDs
Diet: NPO
Total time spent on today's encounter was 65 minutes which included time spent in counseling the patient/family regarding diagnosis and treatment plan as listed above, goals of care, and symptom management. Case was discussed with nursing staff,
specialists, and care coordinators/case management. All labs and imaging personally reviewed by me. Remainder the time spent in detailed review of previous records, lab data, imaging, and other medical provider documentation.
Anticipated Discharge: > 48 hours
Subjective/Interval History
-
Date of Service: June 09, 2024
Patient seen and examined at bedside, denies any chest pain or shortness of breath, no abdominal pain, no nausea, no vomiting, no diarrhea or constipation.
Admitted overnight with rectal bleed
Objective Data
-
Labs:
Laboratory Results
06/08/24 06/09/24
23:45 14:00
WBC 9.7
Hgb 8.7 L D Pending
Hct 26.0 L Pending
Plt Count 249 D
Sodium 137
Potassium 4.8
Chloride 108 H
Carbon Dioxide 18 L
BUN 36 H
Creatinine 0.8
Glucose 167 H
Calcium 9.2
Total Bilirubin 0.7
AST 19
ALT 16
Alkaline Phosphatase 56
Vital Signs:
Vital Signs
Temp Pulse Resp BP Pulse Ox
98.0 F 72 18 124/73 98
06/09/24 05:04 06/09/24 06:15 06/09/24 06:15 06/09/24 06:00 06/09/24 06:15
I&O
06/08/24 06/09/24 06/10/24
06:59 06:59 06:59
Intake Total 1600 / 1600
Output Total 100 / 100
Balance 1500 / 1500
Physical Exam
-
General: Well Developed, Well Nourished, No Apparent Distress and Comfortable
HEENT: Normocephalic, Atraumatic, Moist Mucous Membranes, No Ptosis, PERRLA and Nose Appears Normal
Respiratory: Clear to Auscultation and Non Labored Respirations
Cardiac: Regular Rhythm and S1/S2
Breast: Deferred by me
GI: Soft, Nontender, Nondistended and Normal Bowel Sounds
Genito-urinary: No Costovertebral Tender
Musculoskeletal: No Clubbing, No Cyanosis and No Edema
Skin: Warm
Neuro: Awake, Alert, Oriented, AO x 3 and No Motor Deficits
Psych: Calm
Data Reviewed
-
Diagnostic Radiology: Image personally visualized and interpreted and Report Reviewed by me
CT Scan: Image personally visualized and interpreted and Report Reviewed by me
Ultrasound: Image personally visualized and interpreted and Report Reviewed by me
MRI: Image personally visualized and interpreted and Report Reviewed by me
Medical Tests (Nuc Med, Echo etc): Image personally visualized and interpreted and Report Reviewed by me
Labs: Labs Reviewed by me
Old Records: Reviewed
--- NOTE | 2024-06-09 10:13 | CM ---
Met with patient and his daughter/primary contact at this time, Patti Mojica, @ bedside in ED
Pharmacy verified: [facility] @ [id number], [place]
IMM benefit explained; form signed @ 1008
Patient is currently a patient at [facility]; and will return to [facility] when stable for discharge. Patient reported that he has been independent with his personal care at the facility; and ambulating with a rolling walker
Patient reported that his is currently a patient at [facility]
At baseline, patient reported that he and his lived in a multilevel home; 2 steps to enter, 13 steps between floors; railing on stairs; powder room 1st floor
PLOF: was independent with ADLS and ambulation; was his 's caregiver; retired; drives; reported he has a fear of falling, does not get into the tub
NO recent home health utilization
Transportation: patient reported that [facility] will provide transport back to facility
Plan: return to [facility] when medically stable for discharge
[2024-06-09] MEDS: TYLENOL 650 MG PO ×2 (12:40→19:46)
[2024-06-09] MEDS: PROTONIX IV (12:49)
[2024-06-09 14:29] LABS: Hematocrit 23.1 % (39.0-52.0); Hemoglobin 7.9 g/dL (13.0-18.0)
--- NOTE | 2024-06-09 17:23 | W.PN.UPDATE ---
Update Note
Progress Note Update
of note I d/w Dr. Unruly Maria who stated likely bled from small bowel anastomosis likely hemoglobin multifactorial no need for scope at this time
[2024-06-09 19:11] LABS: Hematocrit 20.5 % (39.0-52.0)
[2024-06-09] MEDS: NSS (PRESERVATIVE FREE) 10 ML IV (21:33)
[2024-06-09] MEDS: PROTONIX IV 40 MG IV (21:34)
[2024-06-10] VITALS (18 sets, daily range): BP systolic 14–158; BP diastolic 59–85
[2024-06-10] MEDS: TYLENOL 650 MG PO ×3 (01:41→19:52)
[2024-06-10 01:46] LABS: Hematocrit 21.4 % (39.0-52.0); Hemoglobin 7.4 g/dL (13.0-18.0)
[2024-06-10 05:00] LABS: Hematocrit 21.3 % (39.0-52.0); Hemoglobin 7.2 g/dL (13.0-18.0); Mean Corp Hgb Conc. 33.8 g/dL (33.0-37.0); Mean Corpuscular Hgb 30.8 pg (27.0-31.0); Mean Platelet Volume 9.2 fL (7.4-10.4); Platelet Count 183 10^3/uL (130-400); Red Blood Cell Count 2.34 10^6/uL (4.70-6.10); Red Cell Dist. Width 15.3 % (11.5-14.5)
[2024-06-10 05:06] LABS: INR 1.18; PT 15.3 Sec (11.4-14.6)
[2024-06-10] MEDS: D5/0.9% SODIUM CHLORIDE 1000 IV ×2 (05:10→11:36)
[2024-06-10 05:15] LABS: Blood Urea Nitrogen 22 mg/dl (9-20); Calcium 8.7 mg/dl (8.4-10.2); Carbon Dioxide 21 mmol/L (22-30); Chloride 111 mmol/L (98-107); Estimated Creatinine Clearance 93 ml/min; Glucose 99 mg/dl (70-99); Potassium 4.2 mmol/L (3.5-5.1); Sodium 137 mmol/L (135-145); eGFR > 60.00
[2024-06-10 06:03] LABS: Hepatitis C Antibody Negative (Negative)
--- NOTE | 2024-06-10 06:14 | PTCARENOTE ---
1800 H&H came back HGB 7.0 HCT 20.5. Contacted provider who ordered 1 unit Packed RBC's. Transfused over 3.5 hours, PT tolerated well. Upon new H&H HGB7.4 HCT21.4.
[2024-06-10] MEDS: PROTONIX IV 40 MG IV ×2 (08:35→19:52)
[2024-06-10] MEDS: NSS (PRESERVATIVE FREE) 10 ML IV ×2 (08:35→19:53)
--- NOTE | 2024-06-10 10:17 | CON.SURG ---
Surgical Consultation
-
The patient is a 75-year-old man who is well known to me. He underwent exploratory laparotomy, attempted resection of a locally advanced left adrenal metastatic tumor, and resection of a small gastrointestinal stromal tumor of the stomach on May
2024. Immediately postoperatively, the patient did well and was transferred to a residential facility for rehab. He returned yesterday with bloody diarrhea with a hemoglobin of 8.7. Since his admission, despite receiving 2 units of blood,
his hemoglobin remains low, 7.2 (4 pm today). His nurse informed me that he had another episode of bloody diarrhea this AM. He had a CT angiogram, demonstrating no obvious source of his bleeding. He had no complaints. He denied abdominal pain.
His abdomen was soft, ND, and NT. His upper midline incision was C/D/I.
A/P Bloody diarrhea with decreasing Hg.
The possible sources of GI bleeding include gastritis, the gastric GIST resection site (doubtful since a small tumor was resected off the serosal layer of the stomach without entering the stomach), and a small bowel anastomosis, which is unusual
given that his surgery was almost two weeks ago.
I recommend blood transfusions prn. Since we have no definite site of bleeding, surgery is not an option at this time. Perhaps we should consider radionuclide scintigraphy, with or without endoscopies.� I will discuss this with the GI team and the
primary team.� I will continue to follow the patient. �
--- NOTE | 2024-06-10 10:55 | PTCARENOTE ---
Lab informed this RN of critical hgb and hct. Hgb= 6.5, Hct= 19.0. Pt c/o lightheadedness. made aware, new order provided.
[2024-06-10 11:00] LABS: Hemoglobin 6.5 g/dL (13.0-18.0)
--- NOTE | 2024-06-10 11:30 | W.PN.HOSP.TC ---
Today's Communication/Plan
-
Blood transfusion, follow GI recommendations
Assessment / Plan
Assessment / Plan
IMPRESSION:
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 There was diarrhea with maroon-colored stool. Denies any black
stool. He had a drop in hemoglobin from 11 to 8.7. Blood pressure was 93/60. Patient alert oriented and in no acute distress. He is otherwise hemodynamically stable. History suggestive of significant upper GI bleed possibly versus lower GI
bleed. There is no diverticulitis. Possible gastroenteritis. No active bleeding on CT scan.
Hemoglobin continues to drop and patient required to units of blood transfusion done in the morning hemoglobin 6.5, ordered additional 2 units of blood transfusion.
Assessment/plan:
Acute GI bleed
Recent stromal tumor resection
-Type and screen, transfused 1 unit in the ED, H&H every 6 and transfuse for hemoglobin less than 7
-IV fluids
-PPI IV drip.
-GI consultation/surgical
Hold aspirin
Acute blood loss
Secondary to GI bleeding.
Transfuse as needed.
Monitor H&H
06/10
Status post 2 units of blood transfusion and hemoglobin dropped to 6.5 again.
Will proceed with another 2 units of blood transfusion.
history of metastatic colon cancer
status post colon resection with subsequent solitary lung metastasis in 2021 status post radiotherapy
patient found to have large left adrenal underwent exploratory laparotomy, aborted resection of the adrenal tumor
gastrointestinal stromal tumor
s/p resection of the stomach mass.
History of hypertension
Hold lisinopril and carvedilol
CODE STATUS: Full code
DVT prophylaxis: SCDs
Diet: Liquid diet
Total time spent on today's encounter was 65 minutes which included time spent in counseling the patient/family regarding diagnosis and treatment plan as listed above, goals of care, and symptom management. Case was discussed with nursing staff,
specialists, and care coordinators/case management. All labs and imaging personally reviewed by me. Remainder the time spent in detailed review of previous records, lab data, imaging, and other medical provider documentation.
Anticipated Discharge: > 48 hours
Subjective/Interval History
-
Date of Service: June 10, 2024
Patient seen and examined at bedside, patient continued to have a bloody bowel movement last was 3 AM, hemoglobin dropped again, patient had 2 units of blood transfusion last night but hemoglobin dropped to 6.5 today will order another 2 units of
blood transfusion, discussed with surgery and GI.
Objective Data
-
Labs:
Laboratory Results
06/10/24 06/10/24 06/10/24
01:34 04:24 10:44
WBC 7.0
Hgb 7.4 L 7.2 L 6.5 L*
Hct 21.4 L 21.3 L 19.0 L*
Plt Count 183 D
PT 15.3 H
INR 1.18
APTT 29.0
Sodium 137
Potassium 4.2
Chloride 111 H
Carbon Dioxide 21 L
BUN 22 H
Creatinine 0.7
Glucose 99
Calcium 8.7
Vital Signs:
Vital Signs
Temp Pulse Resp BP Pulse Ox
97.7 F 76 18 103/59 99
06/10/24 11:05 06/10/24 11:05 06/10/24 11:05 06/10/24 11:05 06/10/24 11:05
I&O
06/09/24 06/10/24 06/11/24
06:59 06:59 06:59
Intake Total 1600 / 1600 490 / 490
Output Total 100 / 100 1625 / 1625
Balance 1500 / 1500 -1135 / -1135
Physical Exam
-
General: No Apparent Distress, Comfortable and Other (P[place]or)
HEENT: Normocephalic, Atraumatic, Moist Mucous Membranes, No Ptosis, PERRLA and Nose Appears Normal
Respiratory: Clear to Auscultation and Non Labored Respirations
Cardiac: Regular Rhythm and S1/S2
Breast: Deferred by me
GI: Soft, Nontender, Nondistended and Normal Bowel Sounds
Genito-urinary: No Costovertebral Tender
Musculoskeletal: No Clubbing, No Cyanosis and No Edema
Skin: Warm
Neuro: Awake, Alert, Oriented, AO x 3 and No Motor Deficits
Psych: Calm
Data Reviewed
-
Diagnostic Radiology: Image personally visualized and interpreted and Report Reviewed by me
CT Scan: Image personally visualized and interpreted and Report Reviewed by me
Ultrasound: Image personally visualized and interpreted and Report Reviewed by me
MRI: Image personally visualized and interpreted and Report Reviewed by me
Medical Tests (Nuc Med, Echo etc): Image personally visualized and interpreted and Report Reviewed by me
Labs: Labs Reviewed by me
Old Records: Reviewed
--- NOTE | 2024-06-10 11:56 | PTCARENOTE ---
1 unit PRBC started as ordered. Pt laying in bed comfortable. No signs or symptoms of reaction.
--- NOTE | 2024-06-10 12:22 | W.PN.UPDATE ---
Update Note
Progress Note Update
pt with bleeding overnight with several stools and still requiring transfusion. I reviewed with Dr Velazquez and Dr. Maria -- plan for EGD today. If still bleeding and EGD neg consider CTA.
--- NOTE | 2024-06-10 12:30 | CM ---
Patient chart reviewed
Spoke with Yadira at [facility], bed hold
Daughter Patti called & would like to speak with hospitalist regarding goals of care
tt hospitalist
PLAN: [facility] bed hold, CM to continue to follow
--- NOTE | 2024-06-10 14:41 | PTCARENOTE ---
Second unit of PRBCs started as ordered on pink infusion form. Pt to be transported to GI lab once blood started and 15 minute assessment completed. GI lab made aware.
--- NOTE | 2024-06-10 15:53 | W.PN.UPDATE ---
Update Note
Progress Note Update
see endoscopy report which was negative
-if rebleeds and will likely need CTA to try to determine.
- transfuse as needed
did d/w with Katherine
[2024-06-10] MEDS: TRANEXAMIC ACID 100 IV (16:28)
[2024-06-10] MEDS: ZOFRAN 4 MG IV (17:05)
--- NOTE | 2024-06-10 17:15 | PTCARENOTE ---
Received pt from GI lab via stretcher. Stretcher placed next to bed, pt scooted self over to bed with assist x1. No complaints of pain. Blood infusing. Blood transfusion sheet obtained. Will cont to monitor.
--- NOTE | 2024-06-10 18:00 | PTCARENOTE ---
Blood transfusion complete. Transfusion form sent to pharmacy. Pt c/o unrelieved nausea, made aware, new order provided. Will cont to monitor.
[2024-06-10 21:49] LABS: Hematocrit 24.3 % (39.0-52.0); Hemoglobin 8.6 g/dL (13.0-18.0)
[2024-06-11] MEDS: TYLENOL 1000 MG PO (01:16)
[2024-06-11] MEDS: ROXICODONE 5 MG PO (01:16)
[2024-06-11 03:00] VITALS: BP 118/63
[2024-06-11] MEDS: ZOFRAN 4 MG IV ×2 (04:14→14:07)
[2024-06-11 05:29] LABS: Hematocrit 23.7 % (39.0-52.0); Hemoglobin 8.2 g/dL (13.0-18.0); Mean Corp Hgb Conc. 34.6 g/dL (33.0-37.0); Mean Corpuscular Hgb 30.8 pg (27.0-31.0); Mean Corpuscular Volume 89.1 fL (80.0-94.0); Mean Platelet Volume 9.4 fL (7.4-10.4); Platelet Count 176 10^3/uL (130-400); Red Blood Cell Count 2.66 10^6/uL (4.70-6.10); Red Cell Dist. Width 15.9 % (11.5-14.5); White Blood Cell Count 6.4 10^3/uL (4.8-10.8)
--- NOTE | 2024-06-11 05:42 | PTCARENOTE ---
PT received 2 units of PRBC on previous shift due to HGB 6.5. Next draw was not until 0600 06/11. Messaged GEOPHYSICAL SUPPORT SPECIALIST for recheck, HGB came back at 8.6.
PT complaiing of a headache, gave prn tylenol. did not help. Pt takes oxycodone 5 mg tablet 5 - 10 mg PO TID. GEOPHYSICAL SUPPORT SPECIALIST ordered q4 oxycodone 5mg and 1 time dose of tylenol 1000mg. Given at 0116, upon reassessment pt is asleep and seems free of pain.
[2024-06-11 05:46] LABS: Blood Urea Nitrogen 19 mg/dl (9-20); Calcium 8.9 mg/dl (8.4-10.2); Carbon Dioxide 23 mmol/L (22-30); Chloride 111 mmol/L (98-107); Estimated Creatinine Clearance 93 ml/min; Glucose 94 mg/dl (70-99); Sodium 138 mmol/L (135-145); eGFR > 60.00
[2024-06-11 07:30] VITALS: BP 126/79
[2024-06-11] MEDS: NSS (PRESERVATIVE FREE) 10 ML IV ×2 (07:41→20:05)
[2024-06-11] MEDS: PROTONIX IV 40 MG IV ×2 (07:41→20:05)
[2024-06-11] MEDS: FLUSH (NSS) 2 FLUSH IV ×2 (07:42→14:08)
[2024-06-11] MEDS: TYLENOL 650 MG PO ×3 (07:45→20:14)
--- NOTE | 2024-06-11 08:11 | W.PN.SURGUPD ---
Surgical Update
Surgical Update
Remains hemodynamically stable.
Received 2 U of PRBC for Hg of 6.5 and appropriately Hg increased to 8.5 & 8.2.
Scheduled for RBC Nuclear scan
Received 1gm of TXA. Will give another dose.
[2024-06-11 09:42] LABS: Urine Albumin Negative (Neg - Trace); Urine Bilirubin Negative (Negative); Urine Character Clear (Clear); Urine Color Yellow; Urine Glucose Negative (Negative); Urine Ketone Negative (Negative); Urine Leukocyte Negative (Negative); Urine Nitrite Negative (Negative); Urine Occult Blood Negative (Negative); Urine Specific Gravity 1.015 (<1.030); Urine Urobilinogen Negative (Neg - 1+)
[2024-06-11] MEDS: TRANEXAMIC ACID 100 IV (09:43)
--- NOTE | 2024-06-11 10:43 | PN.CDI ---
CDI
- -
CDI:
Physician Documentation Request
Admit Date: 06/09/24 06:09
Dear Doctor Shannon,
Patient admitted GI bleed.
Selected Entries
06/09/24
13:49
Pressure injury appearance (Stage 1) [Present on admission Sacrum] Non blanchable
red
Pressure injury stage [Present on admission Sacrum] Stage 1
Size in centimeters (length/width/depth) [Present on admission Sacrum] 2x2
Surrounding Skin - [Present on admission Sacrum] Dry and intact
Physician documentation of the type and location of wounds is required for compliant documentation. Based on the above clinical findings and your assessment, please provide the following in your progress note:
1. Location of the ulcer/wound, including laterality.
2. Type (etiology) of ulcer/wound:
- Diabetic ulcer
- Arterial (ischemic) ulcer
- Traumatic wound
- Venous stasis ulcer
- Pressure (decubitus) ulcer
- Non-healing surgical wound
- Other
- Unable to determine
3. For a non-pressure ulcer, please indicate the depth/severity:
- Limited to the breakdown of skin
- With fat layer exposed
- With necrosis of muscle
- With necrosis of bone
- Other
- Unable to determine
4. If a pressure ulcer, please also include the stage* of the ulcer:
- Stage 1 - Skin intact, non-blanchable redness
- Stage 2 - Partial thickness loss of dermis, includes intact or open blister
- Stage 3 - Full thickness tissue not including bone, tendon or muscle
- Stage 4 - Full thickness tissue loss, including exposed bone, tendon or muscle
- Unstageable - Full thickness loss in which the base of the ulcer is covered by slough (yellow, oleary, islas, green or brown) and/or eschar (oleary, brown or black) in the wound bed.
- Unable to determine
Use of terms such as suspected, likely, concern for, or probable (associated with a specific diagnosis that is being evaluated, monitored, or treated as if it exists) are acceptable and can be coded in the inpatient setting, when documented at the
time of discharge.
Thank you,
Marcy Lomas RN, BSN
CDI Specialist
Available via [place] text
Please use your independent medical judgment in providing your response.
*Source: National Pressure Ulcer Advisory Panel (NPUAP)
--- NOTE | 2024-06-11 10:47 | PN.CDI ---
CDI
- -
CDI:
Physician Documentation Request
Admit Date: 06/09/24 06:09
Dear Doctor Shannon,
Patient admitted GI bleed.
Clinical panel nursing documentation wound care
06/09/24
13:49
Pressure injury appearance (Stage 1) [Present on admission Sacrum] Non blanchable
red
Pressure injury stage [Present on admission Sacrum] Stage 1
Size in centimeters (length/width/depth) [Present on admission Sacrum] 2x2
Surrounding Skin - [Present on admission Sacrum] Dry and intact
Physician documentation of the type and location of wounds is required for compliant documentation. Based on the above clinical findings and your assessment, please provide the following in your progress note:
1. Location of the ulcer/wound, including laterality.
2. Type (etiology) of ulcer/wound:
- Diabetic ulcer
- Arterial (ischemic) ulcer
- Traumatic wound
- Venous stasis ulcer
- Pressure (decubitus) ulcer
- Non-healing surgical wound
- Other
- Unable to determine
3. For a non-pressure ulcer, please indicate the depth/severity:
- Limited to the breakdown of skin
- With fat layer exposed
- With necrosis of muscle
- With necrosis of bone
- Other
- Unable to determine
4. If a pressure ulcer, please also include the stage* of the ulcer:
- Stage 1 - Skin intact, non-blanchable redness
- Stage 2 - Partial thickness loss of dermis, includes intact or open blister
- Stage 3 - Full thickness tissue not including bone, tendon or muscle
- Stage 4 - Full thickness tissue loss, including exposed bone, tendon or muscle
- Unstageable - Full thickness loss in which the base of the ulcer is covered by slough (yellow, oleary, islas, green or brown) and/or eschar (oleary, brown or black) in the wound bed.
- Unable to determine
Use of terms such as suspected, likely, concern for, or probable (associated with a specific diagnosis that is being evaluated, monitored, or treated as if it exists) are acceptable and can be coded in the inpatient setting, when documented at the
time of discharge.
Thank you,
Marcy Lomas RN, BSN
CDI Specialist
Available via [place] text
Please use your independent medical judgment in providing your response.
*Source: National Pressure Ulcer Advisory Panel (NPUAP)
--- NOTE | 2024-06-11 11:00 | W.PN.HOSP.TC ---
Addendum entered and electronically signed by Fina Ortega MD 06/11/24 13:12:
Patient has stage I sacral pressure ulcer
1. Location of the ulcer/wound,
Sacrum.
2. Type (etiology) of ulcer/wound:
- Pressure (decubitus) ulcer
3. the stage* of the ulcer:
- Stage 1 - Skin intact, non-blanchable redness
Original Note:
Today's Communication/Plan
-
Monitor hemoglobin, advance diet
Assessment / Plan
Assessment / Plan
IMPRESSION:
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 There was diarrhea with maroon-colored stool. Denies any black
stool. He had a drop in hemoglobin from 11 to 8.7. Blood pressure was 93/60. Patient alert oriented and in no acute distress. He is otherwise hemodynamically stable. History suggestive of significant upper GI bleed possibly versus lower GI
bleed. There is no diverticulitis. Possible gastroenteritis. No active bleeding on CT scan.
Hemoglobin continues to drop and patient required to units of blood transfusion done in the morning hemoglobin 6.5, ordered additional 2 units of blood transfusion.
06/11
EGD done 06/10 showed normal esophagus, mild gastritis, normal duodenum
No sign of bleeding
Assessment/plan:
Acute GI bleed
Recent stromal tumor resection
-Type and screen, transfused 1 unit in the ED, H&H every 6 and transfuse for hemoglobin less than 7
-IV fluids
-PPI IV drip.
-GI consultation/surgical
Hold aspirin
06/11
EGD done 06/10 showed normal esophagus, mild gastritis, normal duodenum
No sign of bleeding
No further bloody bowel movement
Status post TXA 1 g X2
Advance diet to low residual
Tagged RBC scan ordered but patient has no active bleeding, currently on hold (if any sign of active bleeding to do the test)
Acute blood loss
Secondary to GI bleeding.
Transfuse as needed.
Monitor H&H
06/10
Status post 2 units of blood transfusion and hemoglobin dropped to 6.5 again.
Will proceed with another 2 units of blood transfusion.
06/11
Hemoglobin stable
history of metastatic colon cancer
status post colon resection with subsequent solitary lung metastasis in 2021 status post radiotherapy
patient found to have large left adrenal underwent exploratory laparotomy, aborted resection of the adrenal tumor
gastrointestinal stromal tumor
s/p resection of the stomach mass.
History of hypertension
Hold lisinopril and carvedilol
CODE STATUS: Full code
DVT prophylaxis: SCDs
Diet: Low residue
Family communication:
06/10 discussed with daughter on the phone
06/11 called twice, no answer (she is at work)-called daughter once, no answer (straight to voice mail)
Total time spent on today's encounter was 65 minutes which included time spent in counseling the patient/family regarding diagnosis and treatment plan as listed above, goals of care, and symptom management. Case was discussed with nursing staff,
specialists, and care coordinators/case management. All labs and imaging personally reviewed by me. Remainder the time spent in detailed review of previous records, lab data, imaging, and other medical provider documentation.
Anticipated Discharge: 24 - 48 hours
Subjective/Interval History
-
Date of Service: June 11, 2024
Patient seen and examined at bedside, denies any chest pain or shortness of breath, no abdominal pain, no nausea, no vomiting, no diarrhea or constipation.
EGD done yesterday shows no sign of bleeding.
Patient with TXA 1 gm x 2, no further bloody bowel movement.
Upgraded diet.
Objective Data
-
Labs:
Laboratory Results
06/11/24
05:00
WBC 6.4
Hgb 8.2 L
Hct 23.7 L
Plt Count 176
Sodium 138
Potassium 4.0
Chloride 111 H
Carbon Dioxide 23
BUN 19
Creatinine 0.7
Glucose 94
Calcium 8.9
Vital Signs:
Vital Signs
Temp Pulse Resp BP Pulse Ox
98.3 F 71 15 126/79 95
06/11/24 07:30 06/11/24 07:30 06/11/24 07:30 06/11/24 07:30 06/11/24 07:30
I&O
06/10/24 06/11/24 06/12/24
06:59 06:59 06:59
Intake Total 490 / 490 1989
Output Total 1625 / 1625 1350 / 1350
Balance -1135 / -1135 640 / 640
Physical Exam
-
General: No Apparent Distress, Comfortable and Other (Pallor)
HEENT: Normocephalic, Atraumatic, Moist Mucous Membranes, No Ptosis, PERRLA and Nose Appears Normal
Respiratory: Clear to Auscultation and Non Labored Respirations
Cardiac: Regular Rhythm and S1/S2
Breast: Deferred by me
GI: Soft, Nontender, Nondistended and Normal Bowel Sounds
Genito-urinary: No Costovertebral Tender
Musculoskeletal: No Clubbing, No Cyanosis and No Edema
Skin: Warm
Neuro: Awake, Alert, Oriented, AO x 3 and No Motor Deficits
Psych: Calm
Data Reviewed
-
Diagnostic Radiology: Image personally visualized and interpreted and Report Reviewed by me
CT Scan: Image personally visualized and interpreted and Report Reviewed by me
Ultrasound: Image personally visualized and interpreted and Report Reviewed by me
MRI: Image personally visualized and interpreted and Report Reviewed by me
Medical Tests (Nuc Med, Echo etc): Image personally visualized and interpreted and Report Reviewed by me
Labs: Labs Reviewed by me
Old Records: Reviewed
[2024-06-11 11:31] VITALS: BP 145/81
--- NOTE | 2024-06-11 12:03 | W.PN.GI.CBS2 ---
Addendum entered and electronically signed by Matilda Velazquez MD 06/11/24 14:44:
I saw and examined the patient.
The BODY AND FRAME TECHNICIAN or PA's note was reviewed and I agree with the note.
Comment:
Pt w/o further bleeding. tolerated regular diet for lunch
abd: soft, nontender
plan:
monitor hgb, likely resolved SB bleeding
regular diet
TXA second dose today
Original Note:
Today's Communication / Plan
-
increased bleeding 05/10 with drop in hbg but now improving
s/p EGD/enteroscopy without source 06/10
CTA on admission neg for bleeding
bleeding scan held with bleeding improved
Received 1gm of TXA 06/10 and for another dose today
hbg 8.2 with total of 4 units transfused
advance to low residue diet
appreciate surgical input
will need OP follow up with Dr. Naqvi and oncology
Assessment / Plan
-
Pt is a 78yo with hx VT with prior cardiac arrest, AICD, prior ablation, CAD, HTN, hyperlipidemia, MDS, prostate CA with prostatectomy, colon CA with prior chemo right colectomy 2018, with mets to lung (s/p radiation 2021), hilum, and recent
adrenal mets 2024. He had recent admission with 05/28/24- large left adrenal tumor involving left kidney, vessels and aorta. Extensive attempt was made to peel tumor off aorta without success. There was also SB resection completed per review with
Dr. Maria and tumor noted arising from stomach with resection and path c/W gastrointestinal stromal tumor low grade with tumor extending to tissues edge. Pt now presents with bloody stools with pre syncope. CTA on admission neg for bleeding source
but noted progression of metastatic disease and hbg 8.7 with prior hbg 06/06/24- 10.9. In review with patient he states he was doing well post surgery. He does admit to abdominal pain post procedure. He admits to taking narcotic along with
Tylenol. He typically will have stools every several days but admits to constipation and started laxative regiment at SNF. He then passed large stool with liquid and sent to ER for eval as nursing staff concerned for bleeding. Pt recall stools as
more brown in color from what he was able to seen. After admission continued with passage of blood stools and drop in hbg. Last colonoscopy completed with Dr. Naqvi 2022 with patent anastomosis, 5 mm TC polyp, diverticulosis, tattoo noted, IH
bx TA. PT was due 1 year follow up but not completed. No prior EGD but completed 05/10.
06/10 EGD to second portion of duodenum - Normal esophagus. - Gastritis. Bile- Normal examined duodenum - No specimens collected.
-rectal bleeding
-constipation then diarrhea
-symptomatic anemia
-05/28 recent attempted resection of adrenal mets with SB resection and resection of low grade GIST
-hx metastatic Colon CA with prior chemo right colectomy 2018, with mets to lung (s/p radiation 2021), hilum, and recent adrenal mets 2024
other med problems:
- VT with prior cardiac arrest/AICD/prior ablation
-CAD
- HTN
- hyperlipidemia
- MDS
-prostate CA with prostatectomy
PLAN:
increased bleeding 05/10 with drop in hbg but now improving
s/p EGD/enteroscopy without source 06/10
CTA on admission neg for bleeding
bleeding scan held with bleeding improved
Received 1gm of TXA 06/10 and for another dose today
hbg 8.2 with total of 4 units transfused
advance to low residue diet
appreciate surgical input
will need OP follow up with Dr. Naqvi and oncology
Subjective
Subjective
Date of Service: June 11, 2024
no further bleeding and advancing diet --last stool+ stool 06/10
Objective
Data Reviewed
Laboratory Data:
Laboratory Results
06/11/24 05:00
06/11/24 05:00
Laboratory Results
PT 15.3 Sec (11.4-14.6) H 06/10/24 04:24
INR 1.18 06/10/24 04:24
APTT 29.0 Sec (23.4-35.0) 06/10/24 04:24
Total Bilirubin 0.7 mg/dl (0.2-1.3) 06/08/24 23:45
AST 19 U/L (17-59) 06/08/24 23:45
ALT 16 U/L (0-50) 06/08/24 23:45
Alkaline Phosphatase 56 U/L (38-126) 06/08/24 23:45
Vital Signs and I&O:
Vital Signs
Temp Pulse Resp BP Pulse Ox
97.7 F 74 15 145/81 99
06/11/24 11:31 06/11/24 11:31 06/11/24 11:31 06/11/24 11:31 06/11/24 11:31
I&O
06/10/24 06/11/24 06/12/24
06:59 06:59 06:59
Intake Total 490 / 490 1989
Output Total 1625 / 1625 1350 / 1350
Balance -1135 / -1135 640 / 640
Physical Exam
Physical Exam
HEENT: Anicteric and Moist mucous membranes
Cardiology: Normal Sinus Rhythm
Pulmonary: Clear
GI: Soft, Non Distended and Non Tender
Extremities: No Edema
Neuro: Non Focal
--- NOTE | 2024-06-11 12:03 | CM ---
Addendum entered by Daphne Fabian 06/12/24 13:30:
Patient accepted at [facility]
Report# [phone]

Original Note:
Patient chart reviewed
Hgb 8.2 today
EGD done 06/10 showed normal esophagus, mild gastritis, normal duodenum
No sign of bleeding
Referral in [facility], no longer a bed hold
no pre-auth needed
PLAN: SNF, when medically stable, CM will continue to follow
[2024-06-11 15:45] VITALS: BP 121/81
[2024-06-11 18:32] VITALS: BMI 24.5
[2024-06-11 23:48] VITALS: BP 144/80
[2024-06-11 23:51] VITALS: BP 102/70; BP 144/80; BP 99/53; PULSE 75; PULSE 83; PULSE 85
[2024-06-12] MEDS: TYLENOL 650 MG PO ×4 (02:21→23:48)
[2024-06-12 06:22] LABS: Hematocrit 24.4 % (39.0-52.0); Hemoglobin 8.2 g/dL (13.0-18.0); Mean Corp Hgb Conc. 33.6 g/dL (33.0-37.0); Mean Corpuscular Hgb 30.4 pg (27.0-31.0); Mean Corpuscular Volume 90.4 fL (80.0-94.0); Mean Platelet Volume 9.7 fL (7.4-10.4); Platelet Count 205 10^3/uL (130-400); Red Cell Dist. Width 15.7 % (11.5-14.5)
[2024-06-12 06:49] LABS: Blood Urea Nitrogen 16 mg/dl (9-20); Calcium 8.9 mg/dl (8.4-10.2); Carbon Dioxide 24 mmol/L (22-30); Chloride 108 mmol/L (98-107); Estimated Creatinine Clearance 81 ml/min; Glucose 97 mg/dl (70-99); Potassium 3.8 mmol/L (3.5-5.1); Sodium 138 mmol/L (135-145); eGFR > 60.00
[2024-06-12 07:24] VITALS: BP 107/62
--- NOTE | 2024-06-12 08:43 | W.PN.GI.CBS2 ---
Today's Communication / Plan
-
Bleeding has stopped no further intervention
Assessment / Plan
-
Pt is a 78yo with hx VT with prior cardiac arrest, AICD, prior ablation, CAD, HTN, hyperlipidemia, MDS, prostate CA with prostatectomy, colon CA with prior chemo right colectomy 2018, with mets to lung (s/p radiation 2021), hilum, and recent
adrenal mets 2024. He had recent admission with 05/28/24- large left adrenal tumor involving left kidney, vessels and aorta. Extensive attempt was made to peel tumor off aorta without success. There was also SB resection completed per review with
Dr. Maria and tumor noted arising from stomach with resection and path c/W gastrointestinal stromal tumor low grade with tumor extending to tissues edge. Pt now presents with bloody stools with pre syncope. CTA on admission neg for bleeding source
but noted progression of metastatic disease and hbg 8.7 with prior hbg 06/06/24- 10.9. In review with patient he states he was doing well post surgery. He does admit to abdominal pain post procedure. He admits to taking narcotic along with
Tylenol. He typically will have stools every several days but admits to constipation and started laxative regiment at SNF. He then passed large stool with liquid and sent to ER for eval as nursing staff concerned for bleeding. Pt recall stools as
more brown in color from what he was able to seen. After admission continued with passage of blood stools and drop in hbg. Last colonoscopy completed with Dr. Naqvi 2022 with patent anastomosis, 5 mm TC polyp, diverticulosis, tattoo noted, IH
bx TA. PT was due 1 year follow up but not completed. No prior EGD but completed 05/10.
06/10 EGD to second portion of duodenum - Normal esophagus. - Gastritis. Bile- Normal examined duodenum - No specimens collected.
-rectal bleeding
-constipation then diarrhea
-symptomatic anemia
-05/28 recent attempted resection of adrenal mets with SB resection and resection of low grade GIST
-hx metastatic Colon CA with prior chemo right colectomy 2018, with mets to lung (s/p radiation 2021), hilum, and recent adrenal mets 2024
other med problems:
- VT with prior cardiac arrest/AICD/prior ablation
-CAD
- HTN
- hyperlipidemia
- MDS
-prostate CA with prostatectomy
Plan
- bleeding has stopped, hgb remains stable today. no further intervention
- diet as tolerated
will need OP follow up with Dr. Naqvi (office will call him)
will sign off call with questions
Subjective
Subjective
Date of Service: June 12, 2024
Pt with no more bleeding since prior to EGD 2 days ago
Objective
Data Reviewed
Laboratory Data:
Laboratory Results
06/12/24 05:26
06/12/24 05:26
Laboratory Results
PT 15.3 Sec (11.4-14.6) H 06/10/24 04:24
INR 1.18 06/10/24 04:24
APTT 29.0 Sec (23.4-35.0) 06/10/24 04:24
Total Bilirubin 0.7 mg/dl (0.2-1.3) 06/08/24 23:45
AST 19 U/L (17-59) 06/08/24 23:45
ALT 16 U/L (0-50) 06/08/24 23:45
Alkaline Phosphatase 56 U/L (38-126) 06/08/24 23:45
Vital Signs and I&O:
Vital Signs
Temp Pulse Resp BP Pulse Ox
98.2 F 74 16 107/62 97
06/12/24 07:24 06/12/24 07:24 06/12/24 07:24 06/12/24 07:24 06/12/24 07:24
I&O
06/11/24 06/12/24 06/13/24
06:59 06:59 06:59
Intake Total 1989
Output Total 1350 / 1350 2275 / 2275
Balance 640 / 640 -2274 / -2274
Physical Exam
Physical Exam
GI: Soft, Non Distended and Non Tender
[2024-06-12] MEDS: NSS (PRESERVATIVE FREE) 10 ML IV ×2 (09:11→20:35)
[2024-06-12] MEDS: PROTONIX IV 40 MG IV ×2 (09:11→20:36)
--- NOTE | 2024-06-12 11:23 | W.PN.HOSP.TC ---
Today's Communication/Plan
-
Patient cleared for discharge
Assessment / Plan
Assessment / Plan
IMPRESSION:
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 There was diarrhea with maroon-colored stool. Denies any black
stool. He had a drop in hemoglobin from 11 to 8.7. Blood pressure was 93/60. Patient alert oriented and in no acute distress. He is otherwise hemodynamically stable. History suggestive of significant upper GI bleed possibly versus lower GI
bleed. There is no diverticulitis. Possible gastroenteritis. No active bleeding on CT scan.
Hemoglobin continues to drop and patient required to units of blood transfusion done in the morning hemoglobin 6.5, ordered additional 2 units of blood transfusion.
06/11
EGD done 06/10 showed normal esophagus, mild gastritis, normal duodenum
No sign of bleeding
06/12
Hemoglobin remains stable, patient cleared for discharge by GI service and surgery service.
Updated daughter in the phone.
Physical therapy recommending rehab.
Assessment/plan:
Acute GI bleed
Recent stromal tumor resection
-Type and screen, transfused 1 unit in the ED, H&H every 6 and transfuse for hemoglobin less than 7
-IV fluids
-PPI IV drip.
-GI consultation/surgical
Hold aspirin
06/11
EGD done 06/10 showed normal esophagus, mild gastritis, normal duodenum
No sign of bleeding
No further bloody bowel movement
Status post TXA 1 g X2
Advance diet to low residual
Tagged RBC scan ordered but patient has no active bleeding, currently on hold (if any sign of active bleeding to do the test)
06/12
Remains stable hemoglobin.
Acute blood loss anemia
Secondary to GI bleeding.
Transfuse as needed.
Monitor H&H
06/10
Status post 2 units of blood transfusion and hemoglobin dropped to 6.5 again.
Will proceed with another 2 units of blood transfusion.
06/11
Hemoglobin stable
06/12
Hemoglobin remains stable.
history of metastatic colon cancer
status post colon resection with subsequent solitary lung metastasis in 2021 status post radiotherapy
patient found to have large left adrenal underwent exploratory laparotomy, aborted resection of the adrenal tumor
gastrointestinal stromal tumor
s/p resection of the stomach mass.
History of hypertension
Hold lisinopril and carvedilol
CODE STATUS: Full code
DVT prophylaxis: SCDs
Diet: Low residue
Family communication:
06/10 discussed with daughter on the phone
06/11 called twice, no answer (she is at work)-called daughter once, no answer (straight to voice mail)
06/12 discussed with daughter in the phone.
Total time spent on today's encounter was 65 minutes which included time spent in counseling the patient/family regarding diagnosis and treatment plan as listed above, goals of care, and symptom management. Case was discussed with nursing staff,
specialists, and care coordinators/case management. All labs and imaging personally reviewed by me. Remainder the time spent in detailed review of previous records, lab data, imaging, and other medical provider documentation.
Anticipated Discharge: Today
Subjective/Interval History
-
Date of Service: June 12, 2024
Patient seen and examined at bedside, denies any chest pain or shortness of breath, no abdominal pain, no nausea, no vomiting, no diarrhea or constipation.
No bowel movement, cleared for discharge by both surgery and GI.
Discussed with daughter in the phone.
Objective Data
-
Labs:
Laboratory Results
06/12/24
05:26
WBC 6.0
Hgb 8.2 L
Hct 24.4 L
Plt Count 205
Sodium 138
Potassium 3.8
Chloride 108 H
Carbon Dioxide 24
BUN 16
Creatinine 0.8
Glucose 97
Calcium 8.9
Vital Signs:
Vital Signs
Temp Pulse Resp BP Pulse Ox
98.2 F 74 16 107/62 97
06/12/24 07:24 06/12/24 07:24 06/12/24 07:24 06/12/24 07:24 06/12/24 07:24
I&O
06/11/24 06/12/24 06/13/24
06:59 06:59 06:59
Intake Total 1989
Output Total 1350 / 1350 2274 / 2274
Balance 640 / 640 -5 / -2274
Physical Exam
-
General: No Apparent Distress, Comfortable and Other (Pallor)
HEENT: Normocephalic, Atraumatic, Moist Mucous Membranes, No Ptosis, PERRLA and Nose Appears Normal
Respiratory: Clear to Auscultation and Non Labored Respirations
Cardiac: Regular Rhythm and S1/S2
Breast: Deferred by me
GI: Soft, Nontender, Nondistended and Normal Bowel Sounds
Genito-urinary: No Costovertebral Tender
Musculoskeletal: No Clubbing, No Cyanosis and No Edema
Skin: Warm
Neuro: Awake, Alert, Oriented, AO x 3 and No Motor Deficits
Psych: Calm
Data Reviewed
-
Diagnostic Radiology: Image personally visualized and interpreted and Report Reviewed by me
CT Scan: Image personally visualized and interpreted and Report Reviewed by me
Ultrasound: Image personally visualized and interpreted and Report Reviewed by me
MRI: Image personally visualized and interpreted and Report Reviewed by me
Medical Tests (Nuc Med, Echo etc): Image personally visualized and interpreted and Report Reviewed by me
Labs: Labs Reviewed by me
Old Records: Reviewed
--- NOTE | 2024-06-12 11:44 | W.PN.UPDATE ---
Update Note
Progress Note Update
long discussion with daughter on testing and work up completed. Currently bleeding improved. hbg stable no further transfusion required. She did report some dizziness this am but no stools. pt is at risk for rebleeding. If increased recurrent
bleeding discussed repeat CTA and colonoscopy but risk with recent surgical intervention. Also discussed if recent SB intervention would be source though rare this far out capsule endoscopy takes several days to completed with current capsule
available at . Double balloon is option is at Tertiary center after source usually confirmed. All questions answered. Daughter also reviewed with Dr. Maria from surgical standpoint.
[2024-06-12 13:01] VITALS: BP 109/70; BP 147/80; BP 92/52; PULSE 80; PULSE 85; PULSE 90; O2SAT 99
--- NOTE | 2024-06-12 14:07 | CM ---
Addendum entered by Daphne Fabian 06/12/24 15:12:
Facility updated.
Addendum entered by Daphne Fabian 06/12/24 14:19:
Per therapy notes, patient orthostatic and dizzy with therapy, IVF ordered.
Original Note:
Patient accepted at [facility].
IMM completed.
Daughter will transport.
Plan: [facility] when stable.
[facility]
Report# [id number]
[2024-06-12] MEDS: NSS 1000 IV (14:11)
[2024-06-12 15:42] VITALS: BP 110/64
[2024-06-12 15:46] LABS: Hematocrit 25.3 % (39.0-52.0); Hemoglobin 8.6 g/dL (13.0-18.0)
--- NOTE | 2024-06-12 17:38 | PTCARENOTE ---
pt had bloody BM with mixture of bright red and maroon colored stool on bedside commode. pt complaining of dizziness while standing and needing to take frequent breaks to sit while being cleaned. orthos positive and pt symptomatic. MD notified. IVF
and H&H ordered. Fluids infusing @80mls/hr and H&H obtained with repeat labs to be collected in am. Pt resting in bed, call becerra within reach.
[2024-06-13 00:28] VITALS: BP 116/71
[2024-06-13 00:40] VITALS: BP 116/71; BP 118/76; BP 99/61; PULSE 81; PULSE 86; PULSE 88
[2024-06-13] MEDS: NSS 1000 IV ×2 (02:51→23:09)
[2024-06-13] MEDS: TYLENOL 650 MG PO ×3 (06:25→18:39)
--- NOTE | 2024-06-13 06:34 | VATNOTE ---
NOTED LACK OF BLOOD RETURN FROM R SUBQ PRT WHEN ATTEMPTING TO OBTAIN LABS THIS AM. PRT FLUSHES EASILY AND APPEARS WNL. MULKTIPLE POSITION CHANGES YEILDED NO BR. PCN MADE AWARE. VAT TO BE NOTIFIED WHEN PT OOB AND AMBULATING TO ASSESS FOR A BR AGAIN.
WILL ADMINISTER CATHFLO IF AGAIN UNSUCCESSFUL IN OBTAINING A BR. VAT TO FOLLOW.
[2024-06-13 07:34] VITALS: BP 152/81
[2024-06-13 08:16] VITALS: BP 104/54; BP 134/63; PULSE 83; PULSE 85
[2024-06-13 08:23] LABS: Hematocrit 26.7 % (39.0-52.0); Mean Corp Hgb Conc. 33.7 g/dL (33.0-37.0); Mean Corpuscular Hgb 31.3 pg (27.0-31.0); Mean Corpuscular Volume 92.7 fL (80.0-94.0); Mean Platelet Volume 9.1 fL (7.4-10.4); Platelet Count 235 10^3/uL (130-400); Red Blood Cell Count 2.88 10^6/uL (4.70-6.10); Red Cell Dist. Width 16.9 % (11.5-14.5); White Blood Cell Count 6.4 10^3/uL (4.8-10.8)
[2024-06-13] MEDS: CATHFLO/ACTIVASE 2 MG INTRACATH (08:44)
--- NOTE | 2024-06-13 10:25 | W.PN.HOSP.TC ---
Today's Communication/Plan
-
Discharge to rehab once orthostasis improved
Assessment / Plan
Assessment / Plan
IMPRESSION:
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 There was diarrhea with maroon-colored stool. Denies any black
stool. He had a drop in hemoglobin from 11 to 8.7. Blood pressure was 93/60. Patient alert oriented and in no acute distress. He is otherwise hemodynamically stable. History suggestive of significant upper GI bleed possibly versus lower GI
bleed. There is no diverticulitis. Possible gastroenteritis. No active bleeding on CT scan.
Hemoglobin continues to drop and patient required to units of blood transfusion done in the morning hemoglobin 6.5, ordered additional 2 units of blood transfusion.
06/11
EGD done 06/10 showed normal esophagus, mild gastritis, normal duodenum
No sign of bleeding
5
Hemoglobin remains stable, patient cleared for discharge by GI service and surgery service.
Updated daughter in the phone.
Physical therapy recommending rehab.
06/13
Patient was orthostatic, started on IV fluid.
Started low-dose of midodrine.
Otherwise hemoglobin stable and can be discharged to SNF
Assessment/plan:
Acute GI bleed
Recent stromal tumor resection
-Type and screen, transfused 1 unit in the ED, H&H every 6 and transfuse for hemoglobin less than 7
-IV fluids
-PPI IV drip.
-GI consultation/surgical
Hold aspirin
06/11
EGD done 06/10 showed normal esophagus, mild gastritis, normal duodenum
No sign of bleeding
No further bloody bowel movement
Status post TXA 1 g X2
Advance diet to low residual
Tagged RBC scan ordered but patient has no active bleeding, currently on hold (if any sign of active bleeding to do the test)
5
Remains stable hemoglobin.
5/2
Hemoglobin 9.0
Acute blood loss anemia
Secondary to GI bleeding.
Transfuse as needed.
Monitor H&H
06/10
Status post 2 units of blood transfusion and hemoglobin dropped to 6.5 again.
Will proceed with another 2 units of blood transfusion.
06/11
Hemoglobin stable
06/12
Hemoglobin remains stable.
06/13
Hemoglobin remains stable
Orthostatic hypotension.
IV fluid hydration.
Started low-dose midodrine
Compression sock
history of metastatic colon cancer
status post colon resection with subsequent solitary lung metastasis in 2021 status post radiotherapy
patient found to have large left adrenal underwent exploratory laparotomy, aborted resection of the adrenal tumor
gastrointestinal stromal tumor
s/p resection of the stomach mass.
History of hypertension
Hold lisinopril and carvedilol
CODE STATUS: Full code
DVT prophylaxis: SCDs
Diet: Low residue
Family communication:
06/10 discussed with daughter on the phone
06/11 called twice, no answer (she is at work)-called daughter once, no answer (straight to voice mail)
06/12 discussed with daughter in the phone.
Total time spent on today's encounter was 65 minutes which included time spent in counseling the patient/family regarding diagnosis and treatment plan as listed above, goals of care, and symptom management. Case was discussed with nursing staff,
specialists, and care coordinators/case management. All labs and imaging personally reviewed by me. Remainder the time spent in detailed review of previous records, lab data, imaging, and other medical provider documentation.
Anticipated Discharge: Today
Subjective/Interval History
-
Date of Service: June 13, 2024
Patient seen and examined at bedside, had bloody bowel movement yesterday but hemoglobin daniele stable.
Globin is 9.0 today.
Patient remains orthostatic, started on low-dose midodrine.
Otherwise denies any chest pain or shortness of breath, no abdominal pain, no nausea, no vomiting, no diarrhea or constipation.
Objective Data
-
Labs:
Laboratory Results
06/13/24
08:07
WBC 6.4
Hgb 9.0 L
Hct 26.7 L
Plt Count 235
Sodium Pending
Potassium Pending
Chloride Pending
Carbon Dioxide Pending
BUN Pending
Creatinine Pending
Glucose Pending
Calcium Pending
Vital Signs:
Vital Signs
Temp Pulse Resp BP Pulse Ox
98.3 F 77 17 152/81 99
06/13/24 07:34 06/13/24 07:34 06/13/24 07:34 06/13/24 07:34 06/13/24 07:34
I&O
06/12/24 06/13/24 06/14/24
06:59 06:59 06:59
Intake Total 180 / 180
Output Total 2275 / 2275 1200 / 1200
Balance -2275 / -2275 -1020 / -1020
Physical Exam
-
General: No Apparent Distress, Comfortable and Other (Pallor)
HEENT: Normocephalic, Atraumatic, Moist Mucous Membranes, No Ptosis, PERRLA and Nose Appears Normal
Respiratory: Clear to Auscultation and Non Labored Respirations
Cardiac: Regular Rhythm and S1/S2
Breast: Deferred by me
GI: Soft, Nontender, Nondistended and Normal Bowel Sounds
Genito-urinary: No Costovertebral Tender
Musculoskeletal: No Clubbing, No Cyanosis and No Edema
Skin: Warm
Neuro: Awake, Alert, Oriented, AO x 3 and No Motor Deficits
Psych: Calm
[2024-06-13 10:33] LABS: Blood Urea Nitrogen 15 mg/dl (9-20); Calcium 9.4 mg/dl (8.4-10.2); Carbon Dioxide 21 mmol/L (22-30); Chloride 107 mmol/L (98-107); Estimated Creatinine Clearance 72 ml/min; Glucose 115 mg/dl (70-99); Potassium 3.6 mmol/L (3.5-5.1); Sodium 138 mmol/L (135-145); eGFR > 60.00
[2024-06-13] MEDS: PROTONIX IV 40 MG IV ×2 (10:41→21:13)
[2024-06-13] MEDS: NSS (PRESERVATIVE FREE) 10 ML IV ×2 (10:41→21:13)
[2024-06-13] MEDS: ProAmatine 2.5 MG PO ×2 (10:50→17:19)
[2024-06-13] MEDS: ProAmatine PO (14:21)
--- NOTE | 2024-06-13 15:29 | CM ---
Spoke with daughter Patti [phone]
referral in [facility] for [facility] & accepted
states she is having second thoughts regarding [facility] SN[facility] (her mother is there)
will get back to CM if another referral will need to be made in [place]
no precert
PLAN: SNF, pending bed availability when medically stable
[2024-06-13 15:50] VITALS: BP 110/70; BP 112/59; BP 148/87; PULSE 76; PULSE 80; PULSE 82
[2024-06-14] VITALS (7 sets, daily range): BP systolic 86–160; BP diastolic 49–92; PULSE 78–89
[2024-06-14] MEDS: TYLENOL 650 MG PO ×3 (00:39→18:36)
[2024-06-14 04:56] LABS: Hematocrit 24.6 % (39.0-52.0); Hemoglobin 8.2 g/dL (13.0-18.0); Mean Corp Hgb Conc. 33.3 g/dL (33.0-37.0); Mean Corpuscular Hgb 30.5 pg (27.0-31.0); Mean Corpuscular Volume 91.4 fL (80.0-94.0); Mean Platelet Volume 9.1 fL (7.4-10.4); Platelet Count 221 10^3/uL (130-400); Red Blood Cell Count 2.69 10^6/uL (4.70-6.10); Red Cell Dist. Width 16.7 % (11.5-14.5); White Blood Cell Count 5.2 10^3/uL (4.8-10.8)
[2024-06-14 05:21] LABS: Blood Urea Nitrogen 12 mg/dl (9-20); Calcium 8.9 mg/dl (8.4-10.2); Carbon Dioxide 25 mmol/L (22-30); Chloride 110 mmol/L (98-107); Estimated Creatinine Clearance 93 ml/min; Glucose 94 mg/dl (70-99); Potassium 3.8 mmol/L (3.5-5.1); Sodium 138 mmol/L (135-145); eGFR > 60.00
[2024-06-14] MEDS: NSS (PRESERVATIVE FREE) 10 ML IV ×2 (08:10→23:25)
[2024-06-14] MEDS: PROTONIX IV 40 MG IV ×2 (08:11→23:25)
[2024-06-14] MEDS: ProAmatine 2.5 MG PO ×3 (08:11→18:35)
--- NOTE | 2024-06-14 12:59 | W.PN.HOSP.TC ---
Today's Communication/Plan
-
Patient still orthostatic.
Start IV fluid.
Low-dose midodrine.
Compression socks
Assessment / Plan
Assessment / Plan
IMPRESSION:
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 There was diarrhea with maroon-colored stool. Denies any black
stool. He had a drop in hemoglobin from 11 to 8.7. Blood pressure was 93/60. Patient alert oriented and in no acute distress. He is otherwise hemodynamically stable. History suggestive of significant upper GI bleed possibly versus lower GI
bleed. There is no diverticulitis. Possible gastroenteritis. No active bleeding on CT scan.
Hemoglobin continues to drop and patient required to units of blood transfusion done in the morning hemoglobin 6.5, ordered additional 2 units of blood transfusion.
06/11
EGD done 06/10 showed normal esophagus, mild gastritis, normal duodenum
No sign of bleeding
06/12
Hemoglobin remains stable, patient cleared for discharge by GI service and surgery service.
Updated daughter in the phone.
Physical therapy recommending rehab.
06/13
Patient was orthostatic, started on IV fluid.
Started low-dose of midodrine.
Otherwise hemoglobin stable and can be discharged to SNF
06/14
Patient still positive orthostatic, added midodrine and compression socks
Assessment/plan:
Acute GI bleed
Recent stromal tumor resection
-Type and screen, transfused 1 unit in the ED, H&H every 6 and transfuse for hemoglobin less than 7
-IV fluids
-PPI IV drip.
-GI consultation/surgical
Hold aspirin
06/11
EGD done 06/10 showed normal esophagus, mild gastritis, normal duodenum
No sign of bleeding
No further bloody bowel movement
Status post TXA 1 g X2
Advance diet to low residual
Tagged RBC scan ordered but patient has no active bleeding, currently on hold (if any sign of active bleeding to do the test)
06/12
Remains stable hemoglobin.
06/13
Hemoglobin 9.0
06/14
Hemoglobin 8.2
Acute blood loss anemia
Secondary to GI bleeding.
Transfuse as needed.
Monitor H&H
06/10
Status post 2 units of blood transfusion and hemoglobin dropped to 6.5 again.
Will proceed with another 2 units of blood transfusion.
06/11
Hemoglobin stable
06/12
Hemoglobin remains stable.
06/13
Hemoglobin remains stable
Orthostatic hypotension.
IV fluid hydration.
Started low-dose midodrine
Compression sock
06/14
Still positive orthostatics, continue with IV fluid and midodrine
history of metastatic colon cancer
status post colon resection with subsequent solitary lung metastasis in 2021 status post radiotherapy
patient found to have large left adrenal underwent exploratory laparotomy, aborted resection of the adrenal tumor
gastrointestinal stromal tumor
s/p resection of the stomach mass.
History of hypertension
Hold lisinopril and carvedilol
CODE STATUS: Full code
DVT prophylaxis: SCDs
Diet: Low residue
Family communication:
06/10 discussed with daughter on the phone
06/11 called twice, no answer (she is at work)-called daughter once, no answer (straight to voice mail)
06/12 discussed with daughter in the phone.
Total time spent on today's encounter was 65 minutes which included time spent in counseling the patient/family regarding diagnosis and treatment plan as listed above, goals of care, and symptom management. Case was discussed with nursing staff,
specialists, and care coordinators/case management. All labs and imaging personally reviewed by me. Remainder the time spent in detailed review of previous records, lab data, imaging, and other medical provider documentation.
Anticipated Discharge: 24 - 48 hours
Subjective/Interval History
-
Date of Service: June 14, 2024
Patient seen and examined at bedside, denies any chest pain or shortness of breath, no abdominal pain, no nausea, no vomiting, no diarrhea or constipation.
Patient remains positive orthostatics
Objective Data
-
Labs:
Laboratory Results
06/14/24
04:37
WBC 5.2
Hgb 8.2 L
Hct 24.6 L
Plt Count 221
Sodium 138
Potassium 3.8
Chloride 110 H
Carbon Dioxide 25
BUN 12
Creatinine 0.7
Glucose 94
Calcium 8.9
Vital Signs:
Vital Signs
Temp Pulse Resp BP Pulse Ox
97.8 F 77 18 160/92 99
06/14/24 07:05 06/14/24 07:05 06/14/24 07:05 06/14/24 07:05 06/14/24 07:05
I&O
06/13/24 06/14/24 06/15/24
06:59 06:59 06:59
Intake Total 180 / 180
Output Total 1200 / 1200 900 / 900
Balance -1020 / -1020 -900 / -900
Physical Exam
-
General: No Apparent Distress, Comfortable and Other (Pallor)
HEENT: Normocephalic, Atraumatic, Moist Mucous Membranes, No Ptosis, PERRLA and Nose Appears Normal
Respiratory: Clear to Auscultation and Non Labored Respirations
Cardiac: Regular Rhythm and S1/S2
Breast: Deferred by me
GI: Soft, Nontender, Nondistended and Normal Bowel Sounds
Genito-urinary: No Costovertebral Tender
Musculoskeletal: No Clubbing, No Cyanosis and No Edema
Skin: Warm
Neuro: Awake, Alert, Oriented, AO x 3 and No Motor Deficits
Psych: Calm
Data Reviewed
-
Diagnostic Radiology: Image personally visualized and interpreted and Report Reviewed by me
CT Scan: Image personally visualized and interpreted and Report Reviewed by me
Ultrasound: Image personally visualized and interpreted and Report Reviewed by me
MRI: Image personally visualized and interpreted and Report Reviewed by me
Medical Tests (Nuc Med, Echo etc): Image personally visualized and interpreted and Report Reviewed by me
Labs: Labs Reviewed by me
Old Records: Reviewed
[2024-06-14] MEDS: NSS 1000 IV (13:20)
[2024-06-15] MEDS: TYLENOL 650 MG PO ×3 (01:03→14:01)
[2024-06-15] MEDS: NSS 1000 IV (01:43)
[2024-06-15 04:55] LABS: Hematocrit 24.1 % (39.0-52.0); Hemoglobin 8.1 g/dL (13.0-18.0); Mean Corp Hgb Conc. 33.6 g/dL (33.0-37.0); Mean Corpuscular Volume 92.3 fL (80.0-94.0); Mean Platelet Volume 8.8 fL (7.4-10.4); Platelet Count 205 10^3/uL (130-400); Red Blood Cell Count 2.61 10^6/uL (4.70-6.10); Red Cell Dist. Width 16.6 % (11.5-14.5); White Blood Cell Count 4.6 10^3/uL (4.8-10.8)
[2024-06-15 05:22] LABS: Blood Urea Nitrogen 11 mg/dl (9-20); Calcium 8.8 mg/dl (8.4-10.2); Carbon Dioxide 25 mmol/L (22-30); Chloride 108 mmol/L (98-107); Estimated Creatinine Clearance 81 ml/min; Glucose 100 mg/dl (70-99); Potassium 3.6 mmol/L (3.5-5.1); Sodium 139 mmol/L (135-145); eGFR > 60.00
--- NOTE | 2024-06-15 05:30 | PTCARENOTE ---
Patient got onto the commode and had a dark bowel movement. Possible residual blood. SINGH Turcios notified. Will continue to monitor.
[2024-06-15 07:15] VITALS: BP 151/84
[2024-06-15] MEDS: NSS (PRESERVATIVE FREE) 10 ML IV (07:32)
[2024-06-15] MEDS: ProAmatine 2.5 MG PO ×3 (07:33→17:18)
[2024-06-15] MEDS: PROTONIX IV 40 MG IV (07:33)
[2024-06-15 12:22] VITALS: BP 104/49; BP 105/65; BP 127/66; PULSE 81; PULSE 87
--- NOTE | 2024-06-15 13:02 | W.PN.HOSP.TC ---
Today's Communication/Plan
-
Cleared for discharge to rehab once bed available.
Assessment / Plan
Assessment / Plan
IMPRESSION:
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 There was diarrhea with maroon-colored stool. Denies any black
stool. He had a drop in hemoglobin from 11 to 8.7. Blood pressure was 93/60. Patient alert oriented and in no acute distress. He is otherwise hemodynamically stable. History suggestive of significant upper GI bleed possibly versus lower GI
bleed. There is no diverticulitis. Possible gastroenteritis. No active bleeding on CT scan.
Hemoglobin continues to drop and patient required to units of blood transfusion done in the morning hemoglobin 6.5, ordered additional 2 units of blood transfusion.
06/11
EGD done 06/10 showed normal esophagus, mild gastritis, normal duodenum
No sign of bleeding
06/12
Hemoglobin remains stable, patient cleared for discharge by GI service and surgery service.
Updated daughter in the phone.
Physical therapy recommending rehab.
06/13
Patient was orthostatic, started on IV fluid.
Started low-dose of midodrine.
Otherwise hemoglobin stable and can be discharged to SNF
06/14
Patient still positive orthostatic, added midodrine and compression socks
06/15
Orthostatics improved
Assessment/plan:
Acute GI bleed
Recent stromal tumor resection
-Type and screen, transfused 1 unit in the ED, H&H every 6 and transfuse for hemoglobin less than 7
-IV fluids
-PPI IV drip.
-GI consultation/surgical
Hold aspirin
06/11
EGD done 06/10 showed normal esophagus, mild gastritis, normal duodenum
No sign of bleeding
No further bloody bowel movement
Status post TXA 1 g X2
Advance diet to low residual
Tagged RBC scan ordered but patient has no active bleeding, currently on hold (if any sign of active bleeding to do the test)
06/12
Remains stable hemoglobin.
5
Hemoglobin 9.0
06/14
Hemoglobin 8.2
5
Hemoglobin stable
Acute blood loss anemia
Secondary to GI bleeding.
Transfuse as needed.
Monitor H&H
06/10
Status post 2 units of blood transfusion and hemoglobin dropped to 6.5 again.
Will proceed with another 2 units of blood transfusion.
06/11
Hemoglobin stable
06/12
Hemoglobin remains stable.
06/13
Hemoglobin remains stable
Orthostatic hypotension.
IV fluid hydration.
Started low-dose midodrine
Compression sock
06/14
Still positive orthostatics, continue with IV fluid and midodrine
06/15
Orthostatic improved.
Continue to hold carvedilol and lisinopril.
Continue midodrine
history of metastatic colon cancer
status post colon resection with subsequent solitary lung metastasis in 2021 status post radiotherapy
patient found to have large left adrenal underwent exploratory laparotomy, aborted resection of the adrenal tumor
gastrointestinal stromal tumor
s/p resection of the stomach mass.
History of hypertension
Hold lisinopril and carvedilol
CODE STATUS: Full code
DVT prophylaxis: SCDs
Diet: Low residue
Family communication:
06/10 discussed with daughter on the phone
06/11 called twice, no answer (she is at work)-called daughter once, no answer (straight to voice mail)
06/12 discussed with daughter in the phone.
Total time spent on today's encounter was 65 minutes which included time spent in counseling the patient/family regarding diagnosis and treatment plan as listed above, goals of care, and symptom management. Case was discussed with nursing staff,
specialists, and care coordinators/case management. All labs and imaging personally reviewed by me. Remainder the time spent in detailed review of previous records, lab data, imaging, and other medical provider documentation.
Anticipated Discharge: Today
Subjective/Interval History
-
Date of Service: June 15, 2024
Patient seen and examined at bedside, denies any chest pain or shortness of breath, no abdominal pain, no nausea, no vomiting, no diarrhea or constipation.
Orthostatic improved.
Patient cleared for discharge today
Objective Data
-
Labs:
Laboratory Results
06/15/24
04:47
WBC 4.6 L
Hgb 8.1 L
Hct 24.1 L
Plt Count 205
Sodium 139
Potassium 3.6
Chloride 108 H
Carbon Dioxide 25
BUN 11
Creatinine 0.8
Glucose 100 H
Calcium 8.8
Vital Signs:
Vital Signs
Temp Pulse Resp BP Pulse Ox
99.6 F 79 16 151/84 99
06/15/24 07:15 06/15/24 07:15 06/15/24 07:15 06/15/24 07:15 06/15/24 07:15
I&O
06/14/24 06/15/24 06/16/24
06:59 06:59 06:59
Intake Total 1920 / 1920
Output Total 900 / 900 2550 / 2550
Balance -900 / -900 -630 / -630
Physical Exam
-
General: No Apparent Distress, Comfortable and Other (Pallor)
HEENT: Normocephalic, Atraumatic, Moist Mucous Membranes, No Ptosis, PERRLA and Nose Appears Normal
Respiratory: Clear to Auscultation and Non Labored Respirations
Cardiac: Regular Rhythm and S1/S2
Breast: Deferred by me
GI: Soft, Nontender, Nondistended and Normal Bowel Sounds
Genito-urinary: No Costovertebral Tender
Musculoskeletal: No Clubbing, No Cyanosis and No Edema
Skin: Warm
Neuro: Awake, Alert, Oriented, AO x 3 and No Motor Deficits
Psych: Calm
Data Reviewed
-
Diagnostic Radiology: Image personally visualized and interpreted and Report Reviewed by me
CT Scan: Image personally visualized and interpreted and Report Reviewed by me
Ultrasound: Image personally visualized and interpreted and Report Reviewed by me
MRI: Image personally visualized and interpreted and Report Reviewed by me
Medical Tests (Nuc Med, Echo etc): Image personally visualized and interpreted and Report Reviewed by me
Labs: Labs Reviewed by me
Old Records: Reviewed
--- NOTE | 2024-06-15 13:18 | W.DCSUMMARY ---
Discharge Summary
Discharge Data
Date of Admission: 06/09/24
Date of Discharge: 06/15/24
-
Pending Results: No
Hospital Course
Hospital course
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 There was diarrhea with maroon-colored stool. Denies any black
stool. He had a drop in hemoglobin from 11 to 8.7. Blood pressure was 93/60. Patient alert oriented and in no acute distress. He is otherwise hemodynamically stable. History suggestive of significant upper GI bleed possibly versus lower GI
bleed. There is no diverticulitis. Possible gastroenteritis. No active bleeding on CT scan.
Hemoglobin continues to drop and patient required to units of blood transfusion done in the morning hemoglobin 6.5, ordered additional 2 units of blood transfusion.
06/11
EGD done 06/10 showed normal esophagus, mild gastritis, normal duodenum
No sign of bleeding
06/12
Hemoglobin remains stable, patient cleared for discharge by GI service and surgery service.
Updated daughter in the phone.
Physical therapy recommending rehab.
06/13
Patient was orthostatic, started on IV fluid.
Started low-dose of midodrine.
Otherwise hemoglobin stable and can be discharged to SNF
06/14
Patient still positive orthostatic, added midodrine and compression socks
06/15
Orthostatics improved
During hospitalization patient was treated from the following
Acute GI bleed
Recent stromal tumor resection
-Type and screen, transfused 1 unit in the ED, H&H every 6 and transfuse for hemoglobin less than 7
-IV fluids
-PPI IV drip.
-GI consultation/surgical
Hold aspirin
06/11
EGD done 06/10 showed normal esophagus, mild gastritis, normal duodenum
No sign of bleeding
No further bloody bowel movement
Status post TXA 1 g X2
Advance diet to low residual
Tagged RBC scan ordered but patient has no active bleeding, currently on hold (if any sign of active bleeding to do the test)
06/12
Remains stable hemoglobin.
5
Hemoglobin 9.0
06/14
Hemoglobin 8.2
06/15
Hemoglobin stable
Acute blood loss anemia
Secondary to GI bleeding.
Transfuse as needed.
Monitor H&H
06/10
Status post 2 units of blood transfusion and hemoglobin dropped to 6.5 again.
Will proceed with another 2 units of blood transfusion.
06/11
Hemoglobin stable
06/12
Hemoglobin remains stable.
06/13
Hemoglobin remains stable
Orthostatic hypotension.
IV fluid hydration.
Started low-dose midodrine
Compression sock
06/14
Still positive orthostatics, continue with IV fluid and midodrine
06/15
Orthostatic improved.
Continue to hold carvedilol and lisinopril.
Continue midodrine
history of metastatic colon cancer
status post colon resection with subsequent solitary lung metastasis in 2021 status post radiotherapy
patient found to have large left adrenal underwent exploratory laparotomy, aborted resection of the adrenal tumor
gastrointestinal stromal tumor
s/p resection of the stomach mass.
History of hypertension
Hold lisinopril and carvedilol
CODE STATUS: Full code
DVT prophylaxis: SCDs
Diet: Low residue
Family communication:
06/10 discussed with daughter on the phone
06/11 called twice, no answer (she is at work)-called daughter once, no answer (straight to voice mail)
06/12 discussed with daughter in the phone.
Total time spent on today's encounter was 40 minutes which included time spent in counseling the patient/family regarding diagnosis and treatment plan as listed above, goals of care, and symptom management. Case was discussed with nursing staff,
specialists, and care coordinators/case management. All labs and imaging personally reviewed by me. Remainder the time spent in detailed review of previous records, lab data, imaging, and other medical provider documentation.
Anticipated Discharge: Today
Discharge Plan
-
Patient Disposition: Shelter/SNF
Discharge Diagnosis/Procedures: Acute GI bleeding.
Acute blood loss anemia.
Metastatic colon cancer
Hypertension
Diet: Low Residue
Activity: With assistance and As tolerated
Blood Work: Repeat CBC after 1 week
Referrals:
Rakesh Naqvi MD [Active] - (OP follow up with Recent bleeding and hx colon CA)
Unruly Maria MD [Active] - in two to three weeks
UNKNOWN - PT DOES,NOT KNOW [Family Provider] -
Prescriptions:
New
pantoprazole [Protonix] 40 mg tablet,delayed release (DR/EC)
40 mg PO DAILY Qty: 30 0RF
midodrine 2.5 mg Tablet
2.5 mg PO TID@0800,1300,1800 Qty: 0 0RF
Continued
atorvastatin 20 mg Tablet
20 mg PO HS
oxycodone 5 mg Tablet
5 - 10 mg PO TID
docusate sodium [Colace] 100 mg Capsule
100 - 200 mg PO TID
Patient Comments:
Takes in conjunction with oxycodone-1 colace w/ 5 mg oxycodone
Held
aspirin 81 MG tablet,delayed release (DR/EC)
81 mg PO Q48H@2200
Hold Instructions: Hold until follow-up with Gi/surgery
carvedilol 3.125 MG tablet
3.125 mg PO BID
Hold Instructions: Hold for orthostatic hypotension
lisinopril 5 MG tablet
5 mg PO HS
Hold Instructions: Hold for orthostatic hypotension
Discharge Orders:
Discharge Patient (As Directed); Ordered 06/15/24
Ordered By: Fina Ortega
Discharge Date and Time
Print Language: UKRAINIAN
--- NOTE | 2024-06-15 13:39 | CM ---
tt from hospitalist stable for discharge
spoke with Meri liaison - bed avail at [facility]
Called daughter Patti & she is agreeable as well is the patient to [facility]
IMM explained & signed. In chart
PLAN: [facility]
Report# [phone]

transportation forms on chart, 5:30 set
[2024-06-15] MEDS: NSS IV (14:24)
[2024-06-15 15:15] VITALS: BP 137/75
== END 2024-06-15 18:19 | DRG 378 ==
LOC: 3 WEST ACU 06:09
PROVIDERS: Nurse Practitioner Gerontology; ADMITTING PHYSICIAN Internal Medicine; ATTENDING PHYSICIAN General Practice; CONSULT PHYSICIAN Surgery; EMERGENCY PHYSICIAN Student in an Organized Health Care Education/Training Program; OTHER PHYSICIAN Internal Medicine
PROC: 30243N1 Transfusion of Nonautologous Red Blood Cells into Central Vein, Percutaneous Approach (ICD-10-PCS; 2024-06-09)
PROC: 0DJ08ZZ Inspection of Upper Intestinal Tract, Via Natural or Artificial Opening Endoscopic (ICD-10-PCS; 2024-06-10)
DX: K29.71 Gastritis, unspecified, with bleeding (principal); C79.72 Secondary malignant neoplasm of left adrenal gland; D62 Acute posthemorrhagic anemia; Q39.6 Congenital diverticulum of esophagus; K92.1 Melena; E78.00 Pure hypercholesterolemia, unspecified; I48.91 Unspecified atrial fibrillation; I25.10 Atherosclerotic heart disease of native coronary artery without angina pectoris; K21.9 Gastro-esophageal reflux disease without esophagitis; L89.151 Pressure ulcer of sacral region, stage 1; K59.00 Constipation, unspecified; I95.1 Orthostatic hypotension; N28.89 Other specified disorders of kidney and ureter; I10 Essential (primary) hypertension; H91.93 Unspecified hearing loss, bilateral; I25.2 Old myocardial infarction; Z79.82 Long term (current) use of aspirin; Z85.46 Personal history of malignant neoplasm of prostate; Z95.810 Presence of automatic (implantable) cardiac defibrillator; Z95.5 Presence of coronary angioplasty implant and graft; Z87.891 Personal history of nicotine dependence; Z90.79 Acquired absence of other genital organ(s); Z86.74 Personal history of sudden cardiac arrest; Z90.49 Acquired absence of other specified parts of digestive tract; Z88.8 Allergy status to other drugs, medicaments and biological substances; Z91.048 Other nonmedicinal substance allergy status; Z92.21 Personal history of antineoplastic chemotherapy; Z92.3 Personal history of irradiation; Z85.831 Personal history of malignant neoplasm of soft tissue; Z85.038 Personal history of other malignant neoplasm of large intestine; Z85.118 Personal history of other malignant neoplasm of bronchus and lung
CPT/HCPCS: 36430; 74174; 80048; 80053; 81003; 85014; 85018; 85025; 85027; 85610; 85730; 86803; 86850; 86900; 86901; 86920; 87070; 96374; 96375; 97163; 99285; J2997; P9016; Q9967

== ENCOUNTER 2024-07-18 13:25 | Outpatient (RCR) | payer MEDICARE, SELFPAY ==
[2024-07-18 13:33] LABS: % Basophils 0.2 % (0-2); % Eosinophils 2.7 % (0-6); % Immature Granulocytes 0.4 % (0-0.5); % Lymphocytes 16.1 % (20.5-51.1); % Monocytes 12.3 % (1.7-9.3); % Neutrophils 68.3 % (42.2-75.2); Absolute Eosinophils 0.1 10^3/uL (0-0.7); Absolute Lymphocytes 0.7 10^3/uL (1.2-3.4); Absolute Monocytes 0.6 10^3/uL (0.1-0.6); Absolute Neutrophils 3.1 10^3/uL (1.4-6.5); Hematocrit 32.7 % (39.0-52.0); Hemoglobin 10.6 g/dL (13.0-18.0); Mean Corp Hgb Conc. 32.4 g/dL (33.0-37.0); Mean Corpuscular Hgb 31.2 pg (27.0-31.0); Mean Corpuscular Volume 96.2 fL (80.0-94.0); Mean Platelet Volume 9.4 fL (7.4-10.4); Platelet Count 178 10^3/uL (130-400); Red Cell Dist. Width 14.8 % (11.5-14.5); White Blood Cell Count 4.5 10^3/uL (4.8-10.8)
[2024-07-18 14:39] LABS: ALT (SGPT) 11 U/L (0-50); AST (SGOT) 18 U/L (17-59); Albumin 3.7 g/dl (3.5-5.0); Alkaline Phosphatase 82 U/L (38-126); Blood Urea Nitrogen 14 mg/dl (9-20); Calcium 9.4 mg/dl (8.4-10.2); Carbon Dioxide 22 mmol/L (22-30); Chloride 112 mmol/L (98-107); Glucose 90 mg/dl (70-99); Iron 48 ug/dl (49-181); Potassium 4.5 mmol/L (3.5-5.1); Sodium 141 mmol/L (135-145); Total Bilirubin 0.6 mg/dl (0.2-1.3); Total Protein 6.6 g/dl (6.3-8.2); eGFR > 60.00
[2024-07-18 14:49] LABS: Percent Saturation 15 % (20-50); Total Iron Binding Capacity 319 ug/dl (261-462)
[2024-07-18 15:13] LABS: Ferritin 23.6 ng/ml (17.9-464.0)
[2024-07-18 16:55] LABS: CEA 301 ng/ml
== END 2024-08-11 23:59 | disposition home or self-care (01) ==
LOC: OID 13:25
PROVIDERS: ATTENDING PHYSICIAN Internal Medicine Hematology & Oncology
DX: C18.2 Malignant neoplasm of ascending colon (principal); G62.0 Drug-induced polyneuropathy; C78.00 Secondary malignant neoplasm of unspecified lung; C49.A2 Gastrointestinal stromal tumor of stomach
CPT/HCPCS: 80053; 82378; 82728; 83540; 83550; 85025

== ENCOUNTER 2024-08-08 18:30 | Inpatient (IN) | payer MEDICARE, SELFPAY ==
[2024-08-08] VITALS (16 sets, daily range): BP systolic 78–128; BP diastolic 48–72; PULSE 83–85; BMI 23.4
--- NOTE | 2024-08-08 14:20 | ED.GENMED ---
History of Present Illness
General
Chief Complaint: Fall
Source: patient and family
Exam Limitations: none
Time Seen by Provider: 08/08/24 13:22
Nursing documentation reviewed up to this point in time: agreed with
History of Present Illness
History of Present Illness:
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 Patient was in the
bathroom and fell. He reports his legs would not carry him any longer. He does not believe he hit his head. he got himself to the sofa called a neighbor family was also called. By the time EMS got there found reports patient's blood pressure was
in the 80s. He does have a history of hypotension and is midodrine. he took midodrine this morning. In addition he received a call from cardiology office stating that he was in A-fib.
Daughter reports patient felt breathless when she arrived to his home.
As per daughter pt has fallen 3x in past one week.
He had one dose of chemo so far (last week)
Past History
Past History
ED Past Medical History: CAD, Cancer (Prostate and colon), HTN, Hypercholesterolemia, SD, Other (myelodysplastic syndrome), Other (left adrenal mass) and Other (Prostate cancer, bilateral hearing impairment)
ED Past Surgical History: Cardiac (2 cardiac stents and an automatic internal cardiac defibrillator placed. Cardiac arrest.) and Urological (Prostatectomy)
Social History
Tobacco: Former smoker
Drug: None
Personal:
Living: with family
Employment: Retired
Family History
Family History: Other
Review of Systems
Review of Systems
Allergies reviewed?: Yes
Other source history: family
All Other Systems: ROS reviewed and negative except as documented in HPI and ROS
Phy Exam
General Physical Exam
General Presentation: no apparent distress
General age: appears stated age
General Skin: warm and dry
General Mental: alert
General Hydration: dry mucous membranes
Cardiovascular Exam
Cardiovascular Exam: regular rate/rhythm, no murmur and normal peripheral pulses
Pulmonary Exam
Pulmonary Exam: lungs clear and no respiratory distress
Course
Orders/Labs/Results
Orders:
Orders
08/08/24 Breakfast
Regular
At Your Request: Limited, Director Business Management Required
08/08/24 12:31
ECG [Electrocardiogram (*1)] Urgent
Reason for Study: Fatigue / Weakness
08/08/24 14:20
IV Insert/Care/Rem.- Treatment PRN
08/08/24 14:23
CT Cervical Spine W/o Iv Contr Urgent
Comment:
Reason For Exam: trauma
CT Head W/o Iv Contrast Urgent
Comment:
Reason For Exam: trauma
08/08/24 14:24
Chest [CR Chest - 2 Views ] Urgent
Comment:
Reason For Exam: fall
08/08/24 15:16
Complete Blood Count/With Diff Urgent
Comprehensive Metabolic Panel Urgent
Manual Differential Urgent
08/08/24 16:58
Add On- LAB Urgent
Tests Added?: CBC w/Diff
08/08/24 17:15
Lidocaine 2% [Lidocaine Uro-Jet 2%] 1 syringe .ROUTE .[facility]
08/08/24 17:30
Admit/Transfer Patient As Directed
Co-Sign Provider:
Level of Care: Inpatient admission
Assign to:: Telemetry
Physician / Group: Samantha
Diagnosis: Hypotension, Pancytopenia
Reason for Telemetry: Arrhythmia
Date to Stop Telemetry: 08/11/24
Time to Stop Telemetry: 11:00
Reason for Hospitalization: IVFs
Expected length of stay greater than two midnights?: Yes
ELOS- Estimated Length of Stay in days: 3
I certify the patient meets the requirements for IP care: Yes
Midodrine [ProAmatine] 5 mg PO NOW STA
PRN Pain Medication Management As Directed
May give lesser potent ordered pain med per pt: Yes
preference::
Protocol:: Medication orders for pain may be administered in a
manner that supports deferring to patient preference
when the pt is:
- Requesting an ordered lesser potent pain medication.
Least to most potent pain medications are defined
as: acetaminophen < NSAID < tramadol < opioids
(morphine, oxycodone, hydromorphone).
- Requesting a lesser dose of the same medication IF
ORDERED.
- Requesting a less intrusive route of administration
if both routes are prescribed by the provider (PO <
IV).
08/08/24 17:32
Code Status As Directed
Resuscitation Status: Full Code
08/08/24 17:51
Urinalysis Reflex To Culture Urgent
Date Specimen was Collected: 08/08/24
Time Specimen was Collected: 17:49
Urine Microscopic Reflex Cult Urgent
Urine Culture Urgent
BEBA Source: U
Specimen Description:
Date Specimen was Collected: 08/08/24
Time Specimen was Collected: 17:49
08/08/24 18:22
Midodrine [ProAmatine] 5 mg .ROUTE .[facility]
08/08/24 20:17
0.9% Sodium Chloride 1000 ml [Nss] 1,000 ml IV 80 mls/hr
Acetaminophen [Tylenol] 650 mg PO Q4HPRN PRN
Apixaban [Eliquis] 5 mg PO BID
Carvedilol [Coreg] 3.125 mg PO BID
08/08/24 20:17
Activity As Directed
Activity Level: Out of Bed- Chair
Bladder Scan As Directed
Follow Bladder Retention/Intermittent Cath Algorithm?: Yes
PRN if no void in __ hours: 6
Frequency: Per Retention Algorithm
If Bladder Scan Result >: 400
then:: Straight cath
Orthostatic Vital Signs As Directed
Orthostatic VS Frequency: BID
Pneumatic Compression Sleeves As Directed
Type: Knee high
Straight Cath As Directed
Frequency: Per Retention Algorithm
Additional Instructions: straight cath as needed per acute urinary retention algorithm for 24 hrs
Additional Instructions: for bladder scan greater than 400 mL
Teds [Anti-embolism (DI) Hose] As Directed
Type: Knee high
Vital Signs As Directed
Frequency: Per unit guidelines
Weight As Directed
Frequency: Daily
Ot Eval And Treat Routine
Pt Eval And Treat Routine
Activity Level: Out of Bed-Early Mobility
DX Deep Vein Thrombosis Video Routine
08/08/24 22:00
Atorvastatin [Lipitor] 20 mg PO HS
08/09/24 07:23
Basic Metabolic Panel IN AM
Cortisol, Random IN AM
TSH Reflex To Free T4 IN AM
08/09/24 07:24
CBC/With Diff [Complete Blood Count/With Diff] IN AM
08/09/24 08:00
Aspirin Low Dose EC [Aspir Low (Enteric Coated)] 81 mg PO Q48H
Pantoprazole [Protonix] 40 mg PO DAILY
08/11/24 11:00
DC Protocol for Telemetry ONCE
Abnormal Lab Results
08/08/24 08/08/24
15:16 17:51
WBC 0.6 L* 10^3/uL
(4.8-10.8)
RBC 3.00 L 10^6/uL
(4.70-6.10)
Hgb 9.0 L g/dL
(13.0-18.0)
Hct 26.9 L %
(39.0-52.0)
Plt Count 55 L 10^3/uL
(130-400)
MPV 12.4 H fL
(7.4-10.4)
Abs Neuts (Manual) 0.0 L* 10^3/uL
(1.4-6.5)
Lymphocytes (Manual) 76 H %
(20-51)
Monocytes (Manual) 24 H %
(2-9)
Chloride 112 H mmol/L
(98-107)
Carbon Dioxide 19 L mmol/L
(22-30)
BUN 26 H mg/dl
(9-20)
Glucose 112 H mg/dl
(70-99)
Total Protein 5.5 L g/dl
(6.3-8.2)
Albumin 2.8 L g/dl
(3.5-5.0)
Ur Occult Blood Reflex 1+ A
(Negative)
Urine Bacteria (Reflex) Moderate A
(Negative)
Urine Albumin (Reflex) 2+ A
(Neg - Trace)
08/08/24 15:16
08/08/24 15:16
Vital Signs
Initial and Last Documented VS:
Initial Vital Signs
BP
95/55
08/08/24 12:26
Last Documented Vital Signs
Temp Pulse Resp BP Pulse Ox
98.2 F 80 19 113/59 97
08/09/24 23:27 08/09/24 23:27 08/09/24 23:27 08/09/24 23:27 08/09/24 23:27
MDM/Problems Addressed
Differential Diagnosis Includes:
Not limited to dehydration hypotension infection
MDM/Problems Addressed:
78-year-old male with past medical history metastatic cancer cardiac history presents for evaluation. Patient fell today however has fallen 3 times in the past week. He is not on blood thinners. He is on midodrine for low blood pressure did take
a dose this morning. Patient had orthostatic vital signs upon sitting his blood pressure did drop to the 70s. He was hydrated. Patient's blood pressure improved. Patient will likely need admission for weakness and frequent falls. Labs pending
at this time imaging pending. [facility]
*Radiology
Radiology exam reviewed: radiology read reviewed
*Pulse Oximetry
SaO2: 100
Oxygen Mode of Delivery: Room air
Patient hypoxic: no
*Critical Care Note
Total Time (30-74mins, 75-104mins- exclusive of procedures): Not Applicable
ED Attending Note
-
Portions of this chart may have been created with voice recognition software.� Occasional wrong word or��sound alike� substitutions may have occurred due to the inherent limitations of voice recognition software.
Discharge Plan
Departure
Patient Disposition: Admit
Date of Disposition: 08/08/24
Time of Disposition: 16:51
Presentation/result/management discussed w/ accepting MD/DO: Hospitalist
Condition: Serious
Discharge Problem:
Malignant neoplasm of colon metastatic to adrenal gland, Neutropenia, Acute hypotension, Fall
Interventions
Interventions:
*Risk Screen - Suicide Last Done: 08/08/24 21:06
*General Assessment Last Done: 08/08/24 12:28
*Neglect/Abuse Screening Last Done: 08/08/24 12:28
*ED- Fall Risk Assessment Last Done: 08/08/24 20:20
*ED COVID-19 Vaccine History Last Done: 08/08/24 21:06
*Nursing Disposition Last Done: 08/08/24 20:20
ED-Musculoskeletal Assessment Last Done: 08/08/24 12:47
ED- Neurological Assessment Last Done: 08/08/24 12:40
ED-Skin Assessment Last Done: 08/08/24 12:40
Discharge Date and Time
Discharge Date/Time: 08/08/24 20:20
[2024-08-08 15:30] LABS: ALT (SGPT) 25 U/L (0-50); AST (SGOT) 57 U/L (17-59); Albumin 2.8 g/dl (3.5-5.0); Alkaline Phosphatase 51 U/L (38-126); Blood Urea Nitrogen 26 mg/dl (9-20); Calcium 9.2 mg/dl (8.4-10.2); Carbon Dioxide 19 mmol/L (22-30); Chloride 112 mmol/L (98-107); Glucose 112 mg/dl (70-99); Potassium 3.5 mmol/L (3.5-5.1); Sodium 137 mmol/L (135-145); Total Protein 5.5 g/dl (6.3-8.2); eGFR > 60.00
[2024-08-08 16:14] LABS: Hematocrit 26.9 % (39.0-52.0); Hemoglobin 9.0 g/dL (13.0-18.0); Mean Corp Hgb Conc. 33.5 g/dL (33.0-37.0); Mean Corpuscular Volume 89.7 fL (80.0-94.0); Platelet Count 55 10^3/uL (130-400); Red Cell Dist. Width 14.3 % (11.5-14.5)
--- NOTE | 2024-08-08 16:58 | HPS.HSE ---
Family Physician
-
Family Physician: Juan Manuel Aleman
Chief Complaint
-
Multiple Falls
History of Present Illness
Patient is a 78 y/o male past medical history of GIST s/p resection in May 2024, Metastatic Colon Cancer s/p Colon Resection, Radiotherapy to Pulmonary Nodule and Left Adrenal Metastasis, CAD s/p Stent, Ischemic Cardiomyopathy s/p ICD and
Orthostatic Hypotension who presents with frequent falls. Patient had his first chemotherapy treatment on July 29. He reports since that time he has been experiencing increasing weakness with poor appetite and some diarrhea. He reports some
lightheadedness and has sustained several falls this week most recently this morning. Patient reports his blood pressure has been running low the past few days. He received a call from his cardiology that his device indicated atrial fibrillation
which is a new diagnosis for the patient and cardiology sent a prescription to start Eliquis. Patient was unable to urinate in the emergency department and required straight cath for 750cc of urine. He denies fever, sweats or chills.
Medical History
Past Medical History
Past Medical History: Reports Other
Additional Past Medical History:
Metastatic Colon Cancer with Left Adrenal Tumor s/p Colon Resection and Radiotherapy for Lung Nodule
GIST s/p Resection
Coronary Artery Disease s/p Stent
Ischemic Cardiomyopathy s/p ICD with Recovered EF
Paroxysmal Atrial Fibrillation
Orthostatic Hypotension
Hyperlipidemia
Prostate Cancer
Past Surgical History: Reports Other
Additional Past Surgical History:
Right Colectomy
GIST Resection
Prostatectomy
Cardiac Stent
Dual Chamber ICD
VT Ablation
Social History
Tobacco: Non-smoker
Alcohol: None
Drug: None
Family History
Family History: Not pertinent
Allergies / Home Medications
Allergies reflects when Allergies were last updated in [facility].
Home Medications with original date entered in [facility]
Allergy/Medication List:
Allergies
Allergy/AdvReac Type Severity Reaction Status Date / Time
adhesive Allergy Rash Verified 08/08/24 12:26
niacin Allergy Unknown Verified 08/08/24 12:26
Home Medications
atorvastatin 20 mg tablet 20 mg PO HS High Cholesterol 02/28/23
docusate sodium 100 mg capsule (Colace) 100 mg PO TIDPRN PRN constipation 05/27/24
pantoprazole 40 mg tablet,delayed release (Protonix) 40 mg PO DAILY #30 tabs 06/15/24
aspirin 81 mg tablet,delayed release 81 mg PO Q48H 08/08/24
carvedilol 3.125 mg tablet (Coreg) 3.125 mg PO BID 08/08/24
lisinopril 5 mg tablet 5 mg PO DAILY 08/08/24
midodrine 2.5 mg tablet 2.5 mg PO TIDPRN PRN low blood pressure 08/08/24
ondansetron 4 mg disintegrating tablet 4 mg PO Q6HPRN PRN nausea 08/08/24
Review of Systems
-
History Source: Patient
A 12 point ROS was completed and negative except as noted: Yes
Constitutional: Denies Fever or Chills
Respiratory: Denies Cough or Trouble Breathing
Cardiac: Denies Chest Pain, Palpitations or Syncope
Abdomen/GI: Reports Nausea and Diarrhea; Denies Abdominal Pain or Vomiting
Physical Exam
Vital Signs
Vital Signs
Temp Pulse Resp BP Pulse Ox
98.8 F 85 24 78/50 98
08/08/24 12:28 08/08/24 15:15 08/08/24 15:15 08/08/24 15:06 08/08/24 15:15
Physical Exam
General: Comfortable and Conversant
HEENT: Anicteric and Moist mucous membranes
Respiratory: Clear and Non Labored Respirations
Cardiac: S1/S2 and Regular Rhythm; No Tachycardia
GI: Soft and Non Tender
Rectal: Deferred by Provider
Genito-urinary: Clear Urine
Musculoskeletal: No Clubbing, No Cyanosis and No Edema
Skin: Warm and Dry
Neuro: Awake, Alert, Oriented and Nonfocal/grossly intact
Psych: Calm
Laboratory Results
-
08/08/24 15:16
08/08/24 15:16
Laboratory Results
Total Bilirubin 0.9 mg/dl (0.2-1.3) 08/08/24 15:16
AST 57 U/L (17-59) 08/08/24 15:16
ALT 25 U/L (0-50) 08/08/24 15:16
Alkaline Phosphatase 51 U/L (38-126) 08/08/24 15:16
Chest X-Ray:
Opacity in the left mid to lower lung zone, as described. Possible chronic parenchymal scarring.
Head CT:
No acute intracranial abnormality noted.
No skull fracture.
Data Reviewed
-
Lab Data: Labs Reviewed by me
Old Records: Reviewed
Impression/Plan
-
Frequent Falls / Ambulatory Dysfunction, suspect generalized weakness following chemotherapy and possibly component of orthostatic hypotension
-Check orthostatic vital signs
-Consult PT/OT
Hypotension, suspect related to volume depletion in setting of poor oral intake
-Continue IVFs
-Hold Lisinopril
-Start Midodrine 5mg TID
-Check AM Cortisol in setting of left adrenal tumor
Pancytopenia, likely related to chemotherapy
-Await differential on CBC to evaluate for possible neutropenia
-Patient afebrile at present time
-Continue Oncology
Urinary Retention
-Monitor bladder scan and straight cath as needed
-Await urinalysis
-Consider adding Flomax if BP improves
Paroxysmal Atrial Fibrillation, new diagnosis
-Patient is currently in normal sinus
-Start Eliquis as previously prescribed by Cardiology - Monitor Hgb
Coronary Artery Disease s/p Stent
-Continue aspirin
Ischemic Cardiomyopathy s/p ICD with Recovered EF
-Monitor daily weights
Hyperlipidemia
-Continue atorvastatin
Metastatic Colon Cancer with Left Adrenal Tumor s/p Colon Resection and Radiotherapy for Lung Nodule
GIST s/p Resection
Prostate Cancer s/p Prostatectomy
DVTp dipti: Yoav
Code Status: Full Code
--- NOTE | 2024-08-08 17:39 | W.PN.UPDATE ---
Addendum entered and electronically signed by Robert Singh MD 08/08/24 22:58:
Patient became febrile with temperature of 100.7. ANC of 0. Patient with neutropenic fever. Chest x-ray unremarkable. Urinalysis unremarkable. Check blood cultures. Cefepime.
Original Note:
Update Note
Progress Note Update
This is an addendum to H&P written by Chloé Hood on 08/08/2024. �Patient seen and examined independently with PA.
78-year-old male past medical history of GIST tumor status post resection, metastatic colon cancer with solitary lung metastasis status post radiotherapy, adrenal metastases involving left kidney, vessels and aorta, prostate cancer status post
prostatectomy, myelodysplastic syndrome, CAD status post stents, ventricular tachycardia/prior cardiac arrest with ICD, chronic hypotension on midodrine, hypertension, bilateral hearing impairment, presenting with fall. �3 falls in the past week.
�Weak weakness and diarrhea after chemotherapy and decreased appetite.
Last received chemo on 07/29 which was first dose.
Sales And Service Officer notified patient today that he was in atrial fibrillation today which is new and wrote a prescription for Eliquis.
Blood pressure 90s, dipping down to 70s.
Labs show leukopenia of 0.6. �Platelets of 55. �Hemoglobin stable at 9.
EKG shows sinus rhythm with occasional PVCs.
Retaining 700 cc.�
Chest x-ray shows opacity in the left mid to lower lung zone possible chronic parenchymal scarring. �CT head shows no acute abnormality. �CT cervical spine negative.
Patient presentation likely from chemotherapy. �Hold antihypertensive medications including Coreg. �IV fluids. �Start midodrine 5 mg 3 times daily. �Oncology consulted. �Check a.m. cortisol due to hypotension.
Will start Eliquis as recommended by cardiology. �Patient not currently in A-fib with RVR.
Bladder scan protocol.�
[2024-08-08 18:06] LABS: Urine Character Clear (Clear)
[2024-08-08 18:21] LABS: Platelets Checked Yes
[2024-08-08 18:22] LABS: Total Cells Counted 100
[2024-08-08 18:24] LABS: Anisocytosis 1+; Microcytosis 1+; Normal RBC Morphology No
[2024-08-08 18:26] LABS: Acanthocytes Slight
[2024-08-08 18:28] LABS: Absolute Neutrophils -Man Diff 0.0 10^3/uL (1.4-6.5)
[2024-08-08 18:48] LABS: Urine Squamous Cell 0-2 /LPF (Few)
[2024-08-08 18:49] LABS: Urine Red Blood Cell 0-2 /HPF (0-2); Urine White Cell 0-2 /HPF (0-5)
[2024-08-08] MEDS: NSS 1000 IV (20:38)
[2024-08-08] MEDS: ELIQUIS 5 MG PO (20:38)
[2024-08-08] MEDS: LIPITOR 20 MG PO (20:38)
[2024-08-08] MEDS: COREG PO (20:41)
--- NOTE | 2024-08-08 22:00 | PTCARENOTE ---
Received patient from ED. Patient AAOx3, assessed, denies pain. Oriented to the unit. Patient verbalized an understanding to ring for all transfers. Call becerra in reach. Bed alarm placed for safety.
[2024-08-08] MEDS: STERILE WATER FOR INJECTION 10 ML IV (23:42)
[2024-08-08] MEDS: MAXIPIME 2000 MG IV (23:42)
[2024-08-08] MEDS: FLUSH (NSS) 2 FLUSH IV (23:43)
[2024-08-09] VITALS (9 sets, daily range): BP systolic 106–137; BP diastolic 56–70; PULSE 79–82; BMI 23.5
--- NOTE | 2024-08-09 | PTCARENOTE ---
Patient refusing SCDs, Teds, and wants softcare overlay deflated.
--- NOTE | 2024-08-09 07:42 | CON.ONC ---
Consultation
-
Date Consultation Requested: 08/09/24
Date Consultation Performed: 08/09/24
Requesting Provider: Nancy
Performing Provider: Albaro
Reason for Consultation: Met Colon Ca, Chemotherapy side effects
Impression
Impression
Ambulatory Dysfunction following chemotherapy
Dehydration
Pancytopenia 2* chemotherapy
Hypotension,
Paroxysmal Atrial Fibrillation, new diagnosis
Coronary Artery Disease s/p Stent
Ischemic Cardiomyopathy s/p ICD with Recovered EF
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
GIST s/p Resection
Prostate Cancer s/p Prostatectomy
Plan
Plan
IVF for hypotension, dehydration
IV Abx. Agree w cefepime.
No need for PRBC or PLT tnfx.
Already received Neulasta. No further G-CSF needed.
Will need dose reduction for C2
Patient History
History of Present Illness
CC: Multiple Falls
HPI:
78 y/o male presents with frequent falls. He recently started FOLFIRI + Neulasta 07/29/24. Since treatmen, he has been experiencing increasing weakness with poor appetite and some diarrhea. He filled 5 diapers in 2 days. He received a call from
his cardiology that his device indicated atrial fibrillation which is a new diagnosis for the patient and cardiology sent a prescription to start Eliquis. He was lighted and had low BP. Patient was unable to urinate in the emergency department and
required straight cath for 750cc of urine. He initially denied fever, sweats or chills. Labs showed pancytopenia. He then became febrile with temperature of 100.7. ANC of 0. Patient with neutropenic fever. Chest x-ray unremarkable. Urinalysis
unremarkable. Check blood cultures. Cefepime started.
Past-Medical/Surgical History
PMH:
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
GIST s/p Resection
Coronary Artery Disease s/p Stent
Ischemic Cardiomyopathy s/p ICD with Recovered EF
Paroxysmal Atrial Fibrillation
Orthostatic Hypotension
Prostate Cancer
Hypertension
Hyperlipidemia
CAD
Cardiac arrest due to VT
Colon cancer
PSH:
Right Colectomy
GIST Resection
Cardiac Stent
Dual Chamber ICD
VT Ablation
Prostatectomy 2012
AICD placement
Tonsillectomy
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
Social History
Tobacco: Non-smoker
Alcohol: None
Drug: None
FH: Adopted
Patient Medication
�Medication �Instructions �Recorded �Confirmed �Last Taken �Type
atorvastatin 20 mg tablet 20 mg PO HS High Cholesterol 02/28/23 08/08/24 05/27/24 21:30 History
docusate sodium 100 mg capsule 100 mg PO TIDPRN PRN constipation 05/27/24 08/08/24 05/28/24 08:00 History
(Colace)
pantoprazole 40 mg tablet,delayed 40 mg PO DAILY #30 tabs 06/15/24 08/08/24 Unknown Rx
release (Protonix)
aspirin 81 mg tablet,delayed 81 mg PO Q48H 08/08/24 08/08/24 Unknown History
release
carvedilol 3.125 mg tablet (Coreg) 3.125 mg PO BID 08/08/24 08/08/24 Unknown History
lisinopril 5 mg tablet 5 mg PO DAILY 08/08/24 08/08/24 Unknown History
midodrine 2.5 mg tablet 2.5 mg PO TIDPRN PRN low blood 08/08/24 08/08/24 Unknown History
pressure
ondansetron 4 mg disintegrating 4 mg PO Q6HPRN PRN nausea 08/08/24 08/08/24 Unknown History
tablet
Active Medications
Generic Name Dose Route Start Last Admin
Trade Name Freq PRN Reason Stop Dose Admin
Acetaminophen 650 mg 08/08/24 20:17
Acetaminophen 325 Mg Tablet PO 09/05/24 20:16
Q4HPRN PRN
mild pain/ fever>100.5F
Apixaban 5 mg 08/08/24 20:17 08/08/24 20:38
Apixaban (Eliquis) 5 Mg Tablet PO 09/05/24 20:16 5 mg
BID JOSEF Administration
Aspirin 81 mg 08/09/24 08:00
Aspirin 81 Mg (Enteric Coated) Tablet PO 09/06/24 07:59
Q48H JOSEF
Atorvastatin Calcium 20 mg 08/08/24 22:00 08/08/24 20:38
Atorvastatin (Lipitor) 20 Mg Tablet PO 09/05/24 21:59 20 mg
HS JOSEF Administration
Carvedilol 3.125 mg 08/08/24 20:17 08/08/24 20:41
Carvedilol 3.125 Mg Tablet PO 09/05/24 20:16 Not Given
BID JOSEF
Cefepime HCl 2,000 mg 08/09/24 00:00 08/08/24 23:42
Cefepime Hcl 2,000 Mg/12.5 Ml Vial IV 2,000 mg
Q8H JOSEF Administration
Sodium Chloride 1,000 mls @ 80 mls/hr 08/08/24 20:17 08/08/24 20:38
Nss IV 1,000 mls
.[id number] JOSEF Administration
Midodrine 5 mg 08/09/24 08:00
Midodrine 5 Mg Tablet PO 09/06/24 07:59
TID@0800,1300,1800 JOSEF
Pantoprazole Sodium 40 mg 08/09/24 08:00
Pantoprazole 40 Mg Delayed Release Tablet PO 09/06/24 07:59
DAILY JOSEF
Sodium Chloride 0 flush 08/08/24 21:00 08/08/24 23:43
Sodium Chloride 0.9% (Flush) Syringe IV 09/05/24 20:59 2 flush
PER PROTOCOL JOSEF Administration
Sterile Water 10 ml 08/09/24 00:00 08/08/24 23:42
Sterile Water For Injection 10 Ml Vial IV 09/06/24 00:00 10 ml
Q8H JOSEF Administration
Physical Exam
-
General: Well Developed, Well Nourished, No Apparent Distress and Comfortable
HEENT: Negative Jaundice
Cardiology: S1 and S2
Pulmonary: Clear
GI: Soft
Musculoskeletal: No Edema
Extremities: No C/C/E
Labs
Lab Results
WBC 0.6 10^3/uL (4.8-10.8) L* 08/08/24 15:16
RBC 3.00 10^6/uL (4.70-6.10) L 08/08/24 15:16
Hgb 9.0 g/dL (13.0-18.0) L 08/08/24 15:16
Hct 26.9 % (39.0-52.0) L 08/08/24 15:16
MCV 89.7 fL (80.0-94.0) 08/08/24 15:16
MCH 30.0 pg (27.0-31.0) 08/08/24 15:16
MCHC 33.5 g/dL (33.0-37.0) 08/08/24 15:16
RDW 14.3 % (11.5-14.5) 08/08/24 15:16
Plt Count 55 10^3/uL (130-400) L 08/08/24 15:16
MPV 12.4 fL (7.4-10.4) H 08/08/24 15:16
Creatinine 0.8 mg/dL (0.7-1.3) 08/08/24 15:16
Vital Signs
Vital Signs
Temp Pulse Resp BP Pulse Ox
98.7 F 83 15 117/65 98
08/09/24 03:12 08/09/24 03:12 08/09/24 03:12 08/09/24 03:12 08/09/24 03:12
[2024-08-09 07:51] LABS: Hematocrit 26.5 % (39.0-52.0); Hemoglobin 8.7 g/dL (13.0-18.0); Mean Corp Hgb Conc. 32.8 g/dL (33.0-37.0); Mean Corpuscular Volume 90.1 fL (80.0-94.0); Platelet Count 60 10^3/uL (130-400); Red Cell Dist. Width 14.4 % (11.5-14.5)
[2024-08-09 08:06] LABS: Blood Urea Nitrogen 21 mg/dl (9-20); Calcium 9.1 mg/dl (8.4-10.2); Carbon Dioxide 20 mmol/L (22-30); Chloride 113 mmol/L (98-107); Estimated Creatinine Clearance 93 ml/min; Glucose 106 mg/dl (70-99); Potassium 3.5 mmol/L (3.5-5.1); Sodium 138 mmol/L (135-145); eGFR > 60.00
[2024-08-09 08:30] LABS: Anisocytosis Slight; Hypochromasia Slight; Normal RBC Morphology No; Platelets Checked Yes
[2024-08-09 08:31] LABS: Total Cells Counted 100
[2024-08-09 08:32] LABS: Absolute Neutrophils -Man Diff 0.2 10^3/uL (1.4-6.5)
[2024-08-09 08:37] LABS: Cortisol, Random 19.5 ug/dl
--- NOTE | 2024-08-09 08:54 | W.PN.HOSP.TC ---
Today's Communication/Plan
-
see plan
Assessment / Plan
Assessment / Plan
Gen: NAD, Awake and alert, appears chronically ill and malnourished, cachectic
Eyes: EOMI, PERRLA, no scleral icterus.
Neck: supple.
CV: RRR, +S1/S2, no m/r/g.
Resp: CTAB, no rales, wheezes, or rhonchi.
Abd: +BS, soft, NT, ND
Skin: No rashes.
Neuro: CN 2-12 intact, non-focal.
Psych: Normal mood and affect.
CXR: Opacity in the left mid to lower lung zone, as described. Possible chronic parenchymal scarring. Top normal heart size. No congestive heart failure.
Frequent Falls due to Ambulatory Dysfunction:
-likely due to generalized weakness following chemotherapy
-orthostatic VS NEG (to sitting)
-PT/OT
Hypotension:
-likely related to volume depletion in setting of poor oral intake
-Continue IVFs
-Holding Lisinopril
-Started on Midodrine 5mg TID
-Fasting Cortisol 19.5
Pancytopenia (due to chemo), with neutropenic fever:
-febrile 6/27/25PM
-cont Cefepime
-U/A unremarkable
-follow BCxs
-Oncology following
Urinary Retention
-Monitor bladder scan and straight cath as needed
-Consider adding Flomax if BP remains stable
Paroxysmal Atrial Fibrillation, new diagnosis:
-cont Eliquis/Coreg
-currently in SR
Coronary Artery Disease s/p Stent
-Continue ASA/statin/Coreg
Ischemic Cardiomyopathy s/p ICD with Recovered EF
-Monitor daily weights
Hyperlipidemia
-Continue atorvastatin
Metastatic Colon Cancer with Left Adrenal Tumor s/p Colon Resection and Radiotherapy for Lung Nodule
GIST s/p Resection
Prostate Cancer s/p Prostatectomy
FULL/Eliquis
Total time spent on today's encounter was 50 minutes which included time spent in counseling the patient/family regarding diagnosis and treatment plan as listed above, goals of care, and symptom management. Case was discussed with nursing staff,
specialists, and care coordinators/case management. All labs and imaging personally reviewed by me. Remainder the time spent in detailed review of previous records, lab data, imaging, and other medical provider documentation.
Anticipated Discharge: > 48 hours
Subjective/Interval History
-
Date of Service: August 09, 2024
No new complaints.
Objective Data
-
Labs:
Laboratory Results
08/09/24 08/09/24
07:23 07:24
WBC 0.9 L*
Hgb 8.7 L
Hct 26.5 L
Plt Count 60 L
Sodium 138
Potassium 3.5
Chloride 113 H
Carbon Dioxide 20 L
BUN 21 H
Creatinine 0.7
Glucose 106 H
Calcium 9.1
Vital Signs:
Vital Signs
Temp Pulse Resp BP Pulse Ox
99.0 F 79 18 111/62 96
08/09/24 07:15 08/09/24 07:15 08/09/24 07:15 08/09/24 07:15 08/09/24 07:15
I&O
08/08/24 08/09/24 08/10/24
06:59 06:59 06:59
Intake Total 820 / 820
Output Total 540 / 540
Balance 280 / 280
[2024-08-09] MEDS: ASPIR LOW (ENTERIC COATED) 81 MG PO (09:05)
[2024-08-09] MEDS: ELIQUIS 5 MG PO ×2 (09:06→19:46)
[2024-08-09] MEDS: COREG PO (09:06)
[2024-08-09] MEDS: MAXIPIME 2000 MG IV ×3 (09:07→23:04)
[2024-08-09] MEDS: PROTONIX 40 MG PO (09:07)
[2024-08-09] MEDS: STERILE WATER FOR INJECTION 10 ML IV ×3 (09:07→23:05)
[2024-08-09] MEDS: NSS 1000 IV ×2 (09:24→21:47)
--- NOTE | 2024-08-09 15:59 | CM ---
CM met with pt who is [place]
He typically resides at home with his spouse in a 2SH with 2 JORDYN, full flight to 2nd floor
Pt notes indep with use of a WW
Pt has hx at [facility] and [facility]
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
PCP- Juan Manuel Miller
Rx- KAREN Mccarthy
Pt's spouse currently is a SNF resident/[facility], unsure if STR vs LTC
He noted she is at [facility] but per chart reviewed, was sent to [facility] from [facility] under [employer] waiver
Multiples outreach attempts to dtr per pt request to clarify and discuss dc planning- VM box full
SNF recs by therapy and he deferred planning to dtr
Pt had first session of chemo on 07/29 and on neutropenic precautions
Discharge Disposition- SNF
[2024-08-09] MEDS: COREG 3.125 MG PO (19:46)
[2024-08-09] MEDS: LIPITOR 20 MG PO (21:47)
[2024-08-09] MEDS: FLUSH (NSS) 2 FLUSH IV (23:05)
--- NOTE | 2024-08-09 23:16 | PTCARENOTE ---
Patient able to void at this time in the bathroom. No need to bladder scan.
[2024-08-10 03:33] VITALS: BP 102/53
[2024-08-10 05:38] VITALS: BMI 24.4
--- NOTE | 2024-08-10 06:33 | W.PN.ONC2 ---
Today's Communication / Plan
-
Improving. Cultures negative so far. BP improved. Prob continue another 24 hr observation IV Abx. PT consulted.
Impression
Impression
Ambulatory Dysfunction following chemotherapy
Dehydration
Pancytopenia 2* chemotherapy
Hypotension
Paroxysmal Atrial Fibrillation, new diagnosis
Coronary Artery Disease s/p Stent
Ischemic Cardiomyopathy s/p ICD with Recovered EF
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
GIST s/p Resection
Prostate Cancer s/p Prostatectomy
Plan
Plan
Will need dose reduction of chemotherapy going forward.
WBC improved 0.6 > 0.9
IV Abx pending cultures; on cefepime.
Still no need for PRBC or PLT tnfx.
Already received Neulasta. No further G-CSF needed.
Subjective/Objective
Chief Complaint
ACS Heme Onc
Subjective
Quite TANANA. Diarrhea improved. Only 1 episode last night.
Vital Signs:
Vital Signs
Temp Pulse Resp BP Pulse Ox
98.6 F 68 19 102/53 97
08/10/24 03:33 08/10/24 03:33 08/10/24 03:33 08/10/24 03:33 08/10/24 03:33
Lab Results:
Laboratory Data
WBC 0.9 10^3/uL (4.8-10.8) L* 08/09/24 07:24
Hgb 8.7 g/dL (13.0-18.0) L 08/09/24 07:24
Plt Count 60 10^3/uL (130-400) L 08/09/24 07:24
eGFR > 60.00 08/09/24 07:23
Physical Exam
HEENT: No Jaundice
Cardiology: S1 and S2
Pulmonary: Clear
GI: Soft
[2024-08-10 07:25] VITALS: BP 108/55
[2024-08-10] MEDS: COREG PO (08:10)
[2024-08-10] MEDS: STERILE WATER FOR INJECTION 10 ML IV ×3 (08:11→23:34)
[2024-08-10] MEDS: MAXIPIME 2000 MG IV ×3 (08:11→23:34)
[2024-08-10] MEDS: PROTONIX 40 MG PO (08:11)
[2024-08-10] MEDS: ELIQUIS 5 MG PO ×2 (08:11→20:10)
--- NOTE | 2024-08-10 08:22 | W.PN.HOSP.TC ---
Addendum entered and electronically signed by Neto Cruz MD 08/10/24 09:37:
Hypokalemia, PO K
Original Note:
Today's Communication/Plan
-
see plan
Assessment / Plan
Assessment / Plan
Gen: NAD, Awake and alert, appears chronically ill and malnourished, cachectic
Eyes: EOMI, PERRLA, no scleral icterus.
Neck: supple.
CV: remains RRR, +S1/S2, no m/r/g.
Resp: CTAB anteriorly, no rales, wheezes, or rhonchi.
Abd: remains +BS, soft, NT, ND
Skin: No rashes.
Neuro: CN 2-12 intact, non-focal.
Psych: Normal mood and affect.
08/08/24 23:21 Blood/Venous Blood Culture - Preliminary
No Growth in 24 hours- Final report to follow
08/08/24 23:21 Blood/Venous Blood Culture - Preliminary
No Growth in 24 hours- Final report to follow
CXR: Opacity in the left mid to lower lung zone, as described. Possible chronic parenchymal scarring. Top normal heart size. No congestive heart failure.
Frequent Falls due to Ambulatory Dysfunction:
-likely due to generalized weakness following chemotherapy
-orthostatic VS NEG (to sitting)
-PT/OT
Hypotension:
-likely related to volume depletion in setting of poor oral intake
-Continue IVFs
-Holding Lisinopril
-Started on Midodrine 5mg TID
-Fasting Cortisol 19.5
Pancytopenia (due to chemo), with neutropenic fever:
-febrile 08/08/24PM
-cont Cefepime
-U/A unremarkable
-follow BCxs (NGTD)
-Oncology following
-WBC improving, today's diff pending
Urinary Retention
-Monitor bladder scan and straight cath as needed
-Consider adding Flomax if BP remains stable
Paroxysmal Atrial Fibrillation, new diagnosis:
-cont Eliquis/Coreg
-currently in SR
Coronary Artery Disease s/p Stent
-Continue ASA/statin/Coreg
Ischemic Cardiomyopathy s/p ICD with Recovered EF
-Monitor daily weights
Hyperlipidemia
-Continue atorvastatin
Metastatic Colon Cancer with Left Adrenal Tumor s/p Colon Resection and Radiotherapy for Lung Nodule
GIST s/p Resection
Prostate Cancer s/p Prostatectomy
Patient's daughter updated at length over the phone on 08/09/24. The plan for the weekend was explained.
FULL/Eliquis
Anticipated Discharge: 24 - 48 hours
Subjective/Interval History
-
Date of Service: August 10, 2024
Denies CP/SOB/abd pain. c/o fatigue. States he's eating well.
Objective Data
-
Vital Signs:
Vital Signs
Temp Pulse Resp BP Pulse Ox
98.1 F 65 18 108/55 96
08/10/24 07:25 08/10/24 08:10 08/10/24 07:25 08/10/24 08:10 08/10/24 07:25
I&O
08/09/24 08/10/24 08/11/24
06:59 06:59 06:59
Intake Total 820 / 820 3300 / 3300
Output Total 540 / 540 765 / 765
Balance 280 / 280 2535 / 2535
[2024-08-10 08:48] LABS: Hematocrit 27.6 % (39.0-52.0); Hemoglobin 9.1 g/dL (13.0-18.0); Mean Corp Hgb Conc. 33.0 g/dL (33.0-37.0); Mean Corpuscular Volume 90.2 fL (80.0-94.0); Platelet Count 76 10^3/uL (130-400); Red Cell Dist. Width 14.6 % (11.5-14.5)
[2024-08-10 09:03] LABS: Blood Urea Nitrogen 15 mg/dl (9-20); Calcium 9.4 mg/dl (8.4-10.2); Carbon Dioxide 19 mmol/L (22-30); Chloride 112 mmol/L (98-107); Estimated Creatinine Clearance 108 ml/min; Glucose 128 mg/dl (70-99); Potassium 3.4 mmol/L (3.5-5.1); Sodium 137 mmol/L (135-145); eGFR > 60.00
[2024-08-10 09:43] LABS: Normal RBC Morphology No; Platelets Checked Yes
[2024-08-10 09:44] LABS: Anisocytosis Slight; Hypochromasia Slight; Ovalocytes Slight; Total Cells Counted 100
[2024-08-10 09:47] LABS: Absolute Neutrophils -Man Diff 0.4 10^3/uL (1.4-6.5)
[2024-08-10] MEDS: NSS 1000 IV ×2 (10:04→22:29)
[2024-08-10] MEDS: KCL 40 MEQ PO (10:04)
[2024-08-10 10:05] LABS: Magnesium 1.7 mg/dl (1.6-2.3)
[2024-08-10 11:10] VITALS: BP 75/40; BP 86/43; BP 99/57; PULSE 65; PULSE 69; PULSE 71
[2024-08-10 15:00] VITALS: BP 120/58
[2024-08-10 19:38] VITALS: BP 113/55; BP 127/63; BP 82/44; PULSE 72; PULSE 76
[2024-08-10] MEDS: COREG 3.125 MG PO (20:09)
[2024-08-10] MEDS: LIPITOR 20 MG PO (20:10)
[2024-08-10 23:29] VITALS: BP 111/62
[2024-08-11] VITALS (8 sets, daily range): BP systolic 76–124; BP diastolic 37–68; PULSE 63–72; O2SAT 98; BMI 24.7
[2024-08-11 06:35] LABS: Hematocrit 25.9 % (39.0-52.0); Hemoglobin 8.8 g/dL (13.0-18.0); Mean Corp Hgb Conc. 34.0 g/dL (33.0-37.0); Mean Corpuscular Volume 88.1 fL (80.0-94.0); Platelet Count 110 10^3/uL (130-400); Red Cell Dist. Width 14.8 % (11.5-14.5)
[2024-08-11 06:59] LABS: Blood Urea Nitrogen 9 mg/dl (9-20); Calcium 9.2 mg/dl (8.4-10.2); Carbon Dioxide 17 mmol/L (22-30); Chloride 116 mmol/L (98-107); Estimated Creatinine Clearance 93 ml/min; Glucose 101 mg/dl (70-99); Potassium 3.9 mmol/L (3.5-5.1); Sodium 137 mmol/L (135-145); eGFR > 60.00
--- NOTE | 2024-08-11 07:48 | W.PN.HOSP.TC ---
Today's Communication/Plan
-
SNF placement. No need for further antibiotics.
Assessment / Plan
Assessment / Plan
Gen: NAD, Awake and alert, appears chronically ill and malnourished, cachectic
Eyes: EOMI, PERRLA, no scleral icterus.
Neck: supple.
CV: remains RRR, +S1/S2, no m/r/g.
Resp: CTAB anteriorly, no rales, wheezes, or rhonchi.
Abd: remains +BS, soft, NT, ND
Skin: Warm. Dry.
Neuro: CN 2-12 intact, non-focal.
Psych: Normal mood and affect.
08/08/24 23:21 Blood/Venous Blood Culture - Preliminary
No Growth in 24 hours- Final report to follow
08/08/24 23:21 Blood/Venous Blood Culture - Preliminary
No Growth in 24 hours- Final report to follow
CXR: Opacity in the left mid to lower lung zone, as described. Possible chronic parenchymal scarring. Top normal heart size. No congestive heart failure.
Frequent Falls due to Ambulatory Dysfunction:
-likely due to generalized weakness following chemotherapy
-orthostatic VS NEG (to sitting)
-PT/OT
Hypotension:
-likely related to volume depletion in setting of poor oral intake
-Continue IVFs
-Holding Lisinopril
-Started on Midodrine 5mg TID
-Fasting Cortisol 19.5
Hypokalemia, PO K
Pancytopenia (due to chemo), with neutropenic fever:
-febrile 08/08/24PM - RESOLVED
-Stop antibiotics as per ID
-U/A unremarkable
-follow BCxs (NGTD)
-Oncology following
-WBC improving
Urinary Retention
-Monitor bladder scan and straight cath as needed
-Consider adding Flomax if BP remains stable
Paroxysmal Atrial Fibrillation, new diagnosis:
-cont Eliquis/Coreg
-currently in SR
Coronary Artery Disease s/p Stent
-Continue ASA/statin/Coreg
Ischemic Cardiomyopathy s/p ICD with Recovered EF
-Monitor daily weights
Hyperlipidemia
-Continue atorvastatin
Metastatic Colon Cancer with Left Adrenal Tumor s/p Colon Resection and Radiotherapy for Lung Nodule
GIST s/p Resection
Prostate Cancer s/p Prostatectomy
Patient's daughter updated at length by Dr. Cruz over the phone on 08/09/24.
FULL/Eliquis
Anticipated Discharge: Within 24 hours
Subjective/Interval History
-
Date of Service: August 11, 2024
Patient was seen and examined. He reported feeling okay, denied any new complaints.
Objective Data
-
Labs:
Laboratory Results
08/11/24
05:36
WBC 3.9 L
Hgb 8.8 L
Hct 25.9 L
Plt Count 110 L D
Sodium 137
Potassium 3.9
Chloride 116 H
Carbon Dioxide 17 L
BUN 9
Creatinine 0.7
Glucose 101 H
Calcium 9.2
Vital Signs:
Vital Signs
Temp Pulse Resp BP Pulse Ox
98.5 F 64 14 104/54 98
08/11/24 03:27 08/11/24 03:27 08/11/24 03:27 08/11/24 03:27 08/11/24 03:27
I&O
08/10/24 08/11/24 08/12/24
06:59 06:59 06:59
Intake Total 3300 / 3300 1020 / 1020
Output Total 765 / 765 3225 / 3225
Balance 2535 / 2535 -5 / -220
[2024-08-11 07:59] LABS: Absolute Neutrophils -Man Diff 2.4 10^3/uL (1.4-6.5); Normal RBC Morphology No; Platelets Checked Yes
[2024-08-11 08:00] LABS: Anisocytosis 1+; Hypochromasia 1+; Ovalocytes 1+; Polychromasia 1+; Total Cells Counted 100
[2024-08-11] MEDS: ASPIR LOW (ENTERIC COATED) 81 MG PO (09:10)
[2024-08-11] MEDS: STERILE WATER FOR INJECTION 10 ML IV (09:11)
[2024-08-11] MEDS: MAXIPIME 2000 MG IV (09:11)
[2024-08-11] MEDS: PROTONIX 40 MG PO (09:11)
[2024-08-11] MEDS: ELIQUIS 5 MG PO ×2 (09:11→20:32)
[2024-08-11] MEDS: COREG PO (09:11)
[2024-08-11] MEDS: NSS 1000 IV (10:33)
--- NOTE | 2024-08-11 14:54 | CON.ID ---
Consultation
-
Date/Time Consultation Requested: August 11, 2024 0802
Date/Time Consultation Performed: August 11, 2024 1455
Requesting Provider: Dr. Reji Falcon
Performing Provider: Dr. Sandra Almanzar
Reason for Consultation: Neutropenic fever
Chief Complaint / Past History
Chief Complaint
Weakness
History of Present Illness
78-year-old male with history of ICM s/p ICD placement, GIST status post resection May 2024, colon cancer with recent finding of metastases to the left adrenal tumor, received his first dose of chemotherapy plus Neulasta on July 29 who presented
to the hospital on August 08 due to weakness and fall. He was doing well before chemotherapy. After treatment, he developed profound weakness, poor appetite, weight loss, diarrhea. He had several falls. He felt dizzy. His blood pressure was low.
He received a phone call from his etymology teacher that the ICD noted atrial fibrillation and he was to start Eliquis. In the ER patient noted to be in urinary retention requiring straight catheterization for 750 cc of urine. Patient noted to be
neutropenic with ANC of 0. Chest x-ray LLL scarring. Patient developed temperature 100.7 x 1 later that evening. He was started on cefepime. He is no longer neutropenic at this time. However he continues to feel weak. His appetite has improved.
No further diarrhea. He denies headache. Denies cough or shortness of breath. No chills. Denies fever. No abdominal pain. No urine symptoms.
Past History
Additional Past Medical History:
Recent diagnosis of left adrenal gland metastases from history of colon cancer status post failed attempt for resection May 2024, currently on chemotherapy
Colon cancer s/p post right colectomy 2018
Lung mets from colon ca s/p XRT
GIST s/p resection 05/28/2024
Hx lung nodule s/p XRT
CAD status post stent
Ischemic cardiomyopathy status post ICD placement
Paroxysmal atrial fibrillation
Orthostatic hypotension
HLD
Hearing impairment
History of prostate cancer status post prostatectomy
Cholecystectomy
Allergy History:
adhesive Allergy (Verified 08/08/24 12:26)
Rash
niacin Allergy (Verified 08/08/24 12:26)
Unknown
Medications Reviewed: Yes
Current Antibiotics:
Cefepime 2 g IV every 8 hours d4
Social History
Tobacco: Non-Smoker
Alcohol: None
Drug: None
Personal:
Family History
Family History: Not Pertinent
Review of Systems
Review of Systems
General: Change in Appetite
HEENT: Negative Sinus Problems, Headache or Pharyngitis
Cardiovascular: Negative Chest Pain or Edema
Respiratory: Negative Dyspnea or Cough
Genital / Urological: Negative Dysuria or Flank Pain
Endocrine: Weakness and Fatigue
Skin / Hair / Nails: Negative Rash
All systems: All other systems were reviewed and were negative
Vital Signs
Temp Pulse Resp BP Pulse Ox
98.4 F 68 16 124/68 97
08/11/24 11:20 08/11/24 11:20 08/11/24 11:20 08/11/24 11:20 08/11/24 11:20
Physical Exam
Physical Exam
Constitutional: Chronically Ill and Non-toxic
Head: Other (No frontal or max or sinus tenderness)
Eyes: No Conjunctival Hemorrhage and Sclera Anicteric
Pharynx: Benign
Oral: No Ulcers
Cardiovascular: Regular Rate, S1/S2 and Other (Left chest wall AICD site no induration or erythema)
Pulmonary: Clear
Gastrointestinal: Soft, Non Tender, Non Distended and Normal Bowel Sounds
Genito-Urinary: Negative CVA Tenderness
Extremities: Negative Edema
Neurological: AO x 3
Lines: Port (Right chest wall, not accessed, no erythema)
Lab / Diagnostic Study Results
08/11/24 05:36
08/11/24 05:36
Total Counted 100 08/11/24 05:36
Abs Neuts (Manual) 2.4 10^3/uL (1.4-6.5) 08/11/24 05:36
Segmented Neutrophils 48 % (42-75) 08/11/24 05:36
Band Neutrophils 15 % (0-3) H D 08/11/24 05:36
Lymphocytes (Manual) 12 % (20-51) L 08/11/24 05:36
Eosinophils (Manual) 1 % (0-6) 08/11/24 05:36
Ur Squamous Epith Cells 0-2 /LPF (Few) 08/08/24 17:51
Microbiology Results
Micro:
08/08/24 23:21 Blood Culture - Preliminary
Blood/Venous No Growth in 48 hours- Final report to follow
08/08/24 23:21 Blood Culture - Preliminary
Blood/Venous No Growth in 48 hours- Final report to follow
08/08/24 17:51 Urine Culture - Final
Urine NO GROWTH
08/08 Chest x-ray opacity in the left mid to lower lung zone, as described. Possible chronic parenchymal scarring.
Assessment / Plan
# Neutropenia due to chemo, resolved
# Fever 100.7 x1, resolved
# Metastatic colon ca, on chemo first cycle 07/29/24
-blood cx neg
-Ucx neg
- CXR no PNA
-No infectious etiology identified
- Pt no longer neutropenic. No need for further abx. DC cefepime.
ID will sign off.
--- NOTE | 2024-08-11 15:55 | CM ---
Reviewed the chart notes and spoke with the patient at the bedside. PT recommending SNF. Discussed options with the patient. He requested a referral to [facility] since his is currently there. Referral sent to [facility]. CM continues to be available to
patient/family and is monitoring medical plan for needs at discharge.
Plan: Discharge to SNF/rehab for short term when medically stable. No auth required. CM explained to the patient that chemo tx would need to be postponed while in rehab.
[2024-08-11 18:02] LABS: Hepatitis C Antibody Negative (Negative)
[2024-08-11] MEDS: COREG 3.125 MG PO (20:32)
[2024-08-11] MEDS: LIPITOR 20 MG PO (20:34)
[2024-08-12 03:42] VITALS: BP 127/67
[2024-08-12 06:00] VITALS: BMI 24.4
[2024-08-12 07:30] VITALS: BP 134/71
[2024-08-12 07:44] LABS: Hematocrit 28.3 % (39.0-52.0); Hemoglobin 9.3 g/dL (13.0-18.0); Mean Corp Hgb Conc. 32.9 g/dL (33.0-37.0); Mean Corpuscular Volume 89.3 fL (80.0-94.0); Platelet Count 173 10^3/uL (130-400); Red Cell Dist. Width 15.0 % (11.5-14.5)
[2024-08-12] MEDS: ELIQUIS 5 MG PO ×2 (08:31→19:51)
[2024-08-12] MEDS: PROTONIX 40 MG PO (08:32)
[2024-08-12] MEDS: COREG 3.125 MG PO ×2 (08:32→19:51)
[2024-08-12 08:33] LABS: Blood Urea Nitrogen 8 mg/dl (9-20); Calcium 9.2 mg/dl (8.4-10.2); Carbon Dioxide 21 mmol/L (22-30); Chloride 112 mmol/L (98-107); Estimated Creatinine Clearance 93 ml/min; Glucose 96 mg/dl (70-99); Potassium 3.8 mmol/L (3.5-5.1); Sodium 139 mmol/L (135-145); eGFR > 60.00
[2024-08-12 09:46] LABS: Absolute Neutrophils -Man Diff 5.0 10^3/uL (1.4-6.5)
[2024-08-12 09:48] LABS: Anisocytosis 1+; Hypochromasia 1+; Normal RBC Morphology No; Ovalocytes 1+; Platelets Checked Yes; Polychromasia 1+; Total Cells Counted 100
--- NOTE | 2024-08-12 10:50 | W.PN.HOSP.TC ---
Today's Communication/Plan
-
Discharge today
Assessment / Plan
Assessment / Plan
Gen: NAD, Awake and alert, appears chronically ill and malnourished, cachectic
Eyes: EOMI, no scleral icterus.
Neck: supple.
CV: remains RRR, +S1/S2, no m/r/g.
Resp: CTAB anteriorly, no rales, wheezes, or rhonchi.
Abd: remains +BS, soft, NT, ND
Skin: Warm. Dry.
Neuro: CN 2-12 intact, non-focal.
Psych: Normal mood and affect.
08/08/24 23:21 Blood/Venous Blood Culture - Preliminary
No Growth in 24 hours- Final report to follow
08/08/24 23:21 Blood/Venous Blood Culture - Preliminary
No Growth in 24 hours- Final report to follow
CXR: Opacity in the left mid to lower lung zone, as described. Possible chronic parenchymal scarring. Top normal heart size. No congestive heart failure.
Frequent Falls due to Ambulatory Dysfunction:
-likely due to generalized weakness following chemotherapy
-orthostatic VS NEG (to sitting)
-PT/OT
Hypotension: RESOLVED
-likely related to volume depletion in setting of poor oral intake
-Continue IVFs
-Holding Lisinopril
-Started on Midodrine 5mg TID
-Fasting Cortisol 19.5
Hypokalemia: RESOLVED
Pancytopenia (due to chemo), with neutropenic fever:
-febrile 08/08/24PM - RESOLVED
-Antibiotics stopped as per ID
-U/A unremarkable
-follow BCxs (NGTD)
-Oncology following
-Low WBC resolved
Urinary Retention
-Monitor bladder scan and straight cath as needed
-Consider adding Flomax if BP remains stable
-Will need outpatient voiding trial
Paroxysmal Atrial Fibrillation, new diagnosis:
-cont Eliquis/Coreg
-currently in SR
Coronary Artery Disease s/p Stent
-Continue ASA/statin/Coreg
Ischemic Cardiomyopathy s/p ICD with Recovered EF
-Monitor daily weights
Hyperlipidemia
-Continue atorvastatin
Metastatic Colon Cancer with Left Adrenal Tumor s/p Colon Resection and Radiotherapy for Lung Nodule
GIST s/p Resection
Prostate Cancer s/p Prostatectomy
-Per oncology, further chemotherapy on hold; he'll need to see Dr. Bartlett for evaluation in the next couple weeks, to determine next steps in his care
Moderate protein calorie malnutrition
Patient's daughter updated at length by Dr. Cruz over the phone on 08/09/24.
FULL/Eliquis
More than 30 minutes spent in discharge including
Final examination of the patient
Summarizing hospital stay
Instructions for continuing care to all relevant caregivers
Preparation of discharge records, prescriptions, and referral forms
Total time spent (in minutes): 36
Anticipated Discharge: Today
Subjective/Interval History
-
Date of Service: August 12, 2024
Patient was seen and examined. He denied any symptoms or complaints.
Objective Data
-
Labs:
Laboratory Results
08/12/24
06:27
WBC 8.1
Hgb 9.3 L
Hct 28.3 L
Plt Count 173 D
Sodium 139
Potassium 3.8
Chloride 112 H
Carbon Dioxide 21 L
BUN 8 L
Creatinine 0.7
Glucose 96
Calcium 9.2
Vital Signs:
Vital Signs
Temp Pulse Resp BP Pulse Ox
98.3 F 65 16 134/71 95
08/12/24 07:30 08/12/24 08:32 08/12/24 07:30 08/12/24 08:32 08/12/24 07:30
I&O
06/30/25 07/01/25 07/02/25
06:59 06:59 06:59
Intake Total 1020 / 1020 1260 / 1260
Output Total 3225 / 3225 4475 / 4475 500 / 500
Balance -2205 / -2205 -3215 / -3215 -500 / -500
[2024-08-12 11:47] VITALS: BP 123/61; BP 74/41; BP 93/51; PULSE 70; PULSE 72; PULSE 97
--- NOTE | 2024-08-12 11:51 | PN.CDI ---
CDI
- -
CDI:
Physician Documentation Request
Admit Date: 08/08/24 18:30
Dear Doctor Terrie,
Patient admitted with neutropenic fever.
08/09 Nutrition assessment, 'Pt meets criteria for moderate protein calorie malnutrition with poor intake <75% for >1 month, mod subcutaneous fat (orbital) and muscle (clavicle) loss.
08/11 PN,' ....appears chronically ill and malnourished, cachectic.'
Please provide in your note the diagnosis associated with patient's nutritional status and your assessment:
Moderate protein calorie malnutrition
Other
Lima Criteria ([facility] Hospitalist 2017)
2 or more criteria must be present for either
non severe or severe malnutrition
Note that the criteria differs related to the
presence of an acute or chronic illness
Acute Illness Chronic Illness
Energy Intake Non Severe: <75% for >7 days Non Severe: <75% for >1 month
Severe: <50% for >5 days Severe: <75% for >1 month
Weight Loss Non Severe: 1-2% over 1 week Non Severe: 5% over 1 month
5% over 1 month 7.5% over 3 months
7.5% over 3 months 10% over 6 months
1 year N/A 20% over 1 year
Severe: >2% over 1 week Severe: >5% over 1 month
>5% over 1 month >7.5% over 3 months
>7.5% over 3 months >10% over 6 months
1 year N/A >20% over 1 year
Body Fat Non Severe: Mild Decrease Non Severe: Mild Loss
Severe: Moderate Decrease Severe: Severe Loss
Muscle Mass Non Severe: Mild Decrease Non Severe: Mild Loss
Severe: Moderate Decrease Severe: Severe Loss
Fluid Accumulation Non Severe: Mild Accumulation Non Severe: Mild Accumulation
Severe: Moderate to severe Severe: Moderate to severe
accumulation accumulation
Reduced Marketing Programs Specialist Strength Non Severe: N/A Non Severe: N/A
Severe: Measurably reduced Severe: Measurably reduced
Use of terms such as suspected, likely, concern for, or probable (associated with a specific diagnosis that is being evaluated, monitored, or treated as if it exists) are acceptable and can be coded in the inpatient setting, when documented at the
time of discharge.
Thank you,
Teri KAY,RN,CCDS
CDI Specialist
Available via [employer] text
Please use your independent medical judgment in providing your response.
--- NOTE | 2024-08-12 12:41 | CM ---
Addendum entered by Opal Allen RN 08/12/24 13:06:
Patient's daughter updated on discharge plan to [facility] today.
Medical necessity and transport forms on chart.
Original Note:
Reviewed the chart notes and spoke with the patient at the bedside. IMM reviewed. Per Oneyda, mental health coordinator at [facility], they can accept the patient. CM continues to be available to patient/family and is monitoring medical plan for needs at
discharge.
Plan: Discharge to [facility] when medically stable. No auth required.
Call report to: [phone]
Fax report to: [phone]
--- NOTE | 2024-08-12 12:47 | W.PN.ONC ---
Today's Communication / Plan
-
afebrile, WBC recovered. Off abx
Will need SNF for deconditioning/weakness
Further chemo on hold; he'll need to see Dr. Bartlett for evaluation in the next couple weeks, to determine next steps in his care
Ok for d/c from onc standpoint
Impression
Impression
Ambulatory Dysfunction following chemotherapy
Dehydration
Pancytopenia 2* chemotherapy
Hypotension
Paroxysmal Atrial Fibrillation, new diagnosis
Coronary Artery Disease s/p Stent
Ischemic Cardiomyopathy s/p ICD with Recovered EF
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
GIST s/p Resection
Prostate Cancer s/p Prostatectomy
Plan
Plan
afebrile, WBC recovered. Off abx
Will need SNF for deconditioning/weakness
Further chemo on hold; he'll need to see Dr. Bartlett for evaluation in the next couple weeks, to determine next steps in his care
Ok for d/c from onc standpoint
Subjective/Objective
Subjective/Objective
No focal complaints, just weak and seems frustrated/annoyed
Vital Signs:
Vital Signs
Temp Pulse Resp BP Pulse Ox
98.2 F 72 16 123/61 97
08/12/24 11:47 08/12/24 11:47 08/12/24 11:47 08/12/24 11:47 08/12/24 11:47
Lab Results:
Laboratory Data
WBC 8.1 10^3/uL (4.8-10.8) 08/12/24 06:27
Hgb 9.3 g/dL (13.0-18.0) L 08/12/24 06:27
Plt Count 173 10^3/uL (130-400) D 08/12/24 06:27
eGFR > 60.00 08/12/24 06:27
--- NOTE | 2024-08-12 14:07 | W.DCSUMMARY ---
Discharge Summary
Discharge Data
Date of Admission: 08/08/24
Date of Discharge: 08/12/24
Total time spent discharging patient (in min): 36
-
Pending Results: Yes
Additional Pending Results:
Final results of blood cultures from hospitalization
Hospital Course
78-year-old male with past medical history of GIST tumor status post resection, metastatic colon cancer with solitary lung metastasis status post radiotherapy, adrenal metastases involving left kidney, vessels and aorta, prostate cancer status post
prostatectomy, myelodysplastic syndrome, CAD status post stents, ventricular tachycardia/prior cardiac arrest with ICD, chronic hypotension on midodrine, hypertension and bilateral hearing impairment, presented after falls. Patient was noted to have
weakness and diarrhea after chemotherapy and decreased appetite. Patient's engineering technician parking notified patient today that he was in atrial fibrillation on the day of presentation, which was new and wrote a prescription for Eliquis. Patient was hypotensive
(likely from volume depletion in the setting of poor oral intake), had leukopenia, urinary retention, he was started on Midodrine and intravenous fluids and antihypertensives were held. Patient was found to have an absolute neutrophil count of zero,
and he also had fever. He was diagnosed with neutropenic fever. Patient was started on broad spectrum antibiotic with Cefepime. Infectious Disease was consulted and given that patient's white blood cell count recovered, fever resolved, blood and
urine cultures negative, no clear source of infection, antibiotics were stopped. Oncology was also consulted and mentioned that further chemotherapy on hold; patient would need to see hem/onc physician Dr. Bartlett for evaluation in the next couple
weeks (after discharge), to determine next steps in his care.
Discharge Plan
-
Patient Disposition: Alf/SNF
Discharge Diagnosis/Procedures: Neutropenia due to chemotherapy - RESOLVED
Fever 100.7 F x1 episode - RESOLVED
Metastatic colon cancer, on chemo first cycle 07/29/24
Frequent Falls due to Ambulatory Dysfunction
Ambulatory Dysfunction following chemotherapy
Dehydration
Urinary Retention
Pancytopenia secondary to chemotherapy
Hypotension
Hypokalemia - RESOLVED
Paroxysmal Atrial Fibrillation, new diagnosis
Coronary Artery Disease status post Stent
Ischemic Cardiomyopathy status post ICD with Recovered Ejection Fraction
Metastatic Colon Cancer with Left Adrenal and lung metastases
GIST status post Resection
Prostate Cancer status post Prostatectomy
Hyperlipidemia
Moderate protein calorie malnutrition
Condition: Fair
Diet: As tolerated and Restrict fluids to 64 oz
Activity: With assistance
Driving Restrictions: No driving
Blood Work: CBC (with differential), BMP and Magnesium in 2 to 3 days
Other Services: PT
Activity Restrictions/Additional Instructions:
Patient will need voiding trial for his Siddiqi Catheter within the next 1 to 2 days.
Patient must be closely monitored for any hypotension, and for any signs or symptoms of hypotension.
Referrals:
Lauri Rosario MD [Active, Urology] - in three to four days
Referral Note: Hospital Discharge Voiding Trial for Siddiqi Catheter
Gabino Aleman MD [Family Provider, Internal Medicine] - in less than 1 week
Gayle Bartlett DO [Active, Hematology / Oncology] - in less than 1 week
Referral Note: Continue chemotherapy? Needs close follow-up with oncology
Additional Discharge Medication Instructions: Eliquis is a new medication.
Midodrine dose has been increased.
Lisinopril on hold for now given hypotension during hospitalization.
Ondansetron has been stopped.
Prescriptions:
New
Eliquis 5 mg Tablet
5 mg PO BID Qty: 60 1RF
midodrine 5 mg Tablet
5 mg PO TID@0800,1300,1800 Qty: 60 0RF
Rx Instructions:
*Avoid dosing after evening meal or within 4 hours of bedtime*
Hold for systolic blood pressure>120 mmHg
Continued
atorvastatin 20 mg Tablet
20 mg PO HS
docusate sodium [Colace] 100 mg Capsule
100 mg PO TIDPRN PRN (Reason: constipation)
pantoprazole [Protonix] 40 mg tablet,delayed release (DR/EC)
40 mg PO DAILY Qty: 30 0RF
aspirin 81 mg Tablet,Delayed Release (Dr/Ec)
81 mg PO Q48H
carvedilol [Coreg] 3.125 mg Tablet
3.125 mg PO BID
Held
lisinopril 5 mg Tablet
5 mg PO DAILY
Hold Instructions: Resume on 09/02/24. Resume this medication if and only if outpatient provider says okay to resume this medication.
Discontinued
ondansetron [Zofran ODT] 4 mg Tablet,Disintegrating
4 mg PO Q6HPRN PRN (Reason: nausea)
midodrine 2.5 mg tablet
2.5 mg PO TIDPRN PRN (Reason: low blood pressure)
Discharge Orders:
Discharge Patient (As Directed); Ordered 08/12/24
Ordered By: Reji Falcon
Discharge Date and Time
Discharge Date/Time: 08/12/24 20:41
Print Language: ALBANIAN
[2024-08-12 15:35] VITALS: BP 150/73
[2024-08-12] MEDS: LIPITOR 20 MG PO (19:52)
[2024-08-12 19:59] VITALS: BP 144/76
== END 2024-08-12 20:41 | DRG 809 ==
LOC: 2 NORTH 18:30
PROVIDERS: Internal Medicine; Nurse Practitioner; Physician Assistant Medical; ADMITTING PHYSICIAN Hospitalist; ATTENDING PHYSICIAN Hospitalist; CONSULT PHYSICIAN Internal Medicine Hematology & Oncology; CONSULT PHYSICIAN Internal Medicine Infectious Disease; EMERGENCY PHYSICIAN Emergency Medicine; FAMILY PHYSICIAN Internal Medicine
DX: D61.818 Other pancytopenia (principal); C18.9 Malignant neoplasm of colon, unspecified; E44.0 Moderate protein-calorie malnutrition; T45.1X5A Adverse effect of antineoplastic and immunosuppressive drugs, initial encounter; Z87.891 Personal history of nicotine dependence; I48.0 Paroxysmal atrial fibrillation; I25.10 Atherosclerotic heart disease of native coronary artery without angina pectoris; Z95.5 Presence of coronary angioplasty implant and graft; Z95.810 Presence of automatic (implantable) cardiac defibrillator; I25.5 Ischemic cardiomyopathy; D70.9 Neutropenia, unspecified; I95.1 Orthostatic hypotension; E78.00 Pure hypercholesterolemia, unspecified; E87.6 Hypokalemia; Z68.24 Body mass index [BMI] 24.0-24.9, adult
CPT/HCPCS: 70450; 71046; 72125; 80048; 80053; 81003; 81015; 82533; 83735; 84443; 85025; 86803; 87040; 87086; 93005; 97116; 97163; 97167; 97530; 99285

== ENCOUNTER → 2024-08-14 10:27 | Outpatient (REF) | payer MEDICARE, SELFPAY ==
[2024-08-14 11:59] LABS: Hematocrit 30.4 % (39.0-52.0); Hemoglobin 9.8 g/dL (13.0-18.0); Mean Corp Hgb Conc. 32.2 g/dL (33.0-37.0); Mean Corpuscular Volume 92.1 fL (80.0-94.0); Platelet Count 247 10^3/uL (130-400); Red Cell Dist. Width 15.6 % (11.5-14.5)
[2024-08-14 12:11] LABS: Blood Urea Nitrogen 13 mg/dl (9-20); Calcium 9.6 mg/dl (8.4-10.2); Carbon Dioxide 27 mmol/L (22-30); Chloride 104 mmol/L (98-107); Glucose 104 mg/dl (70-99); Magnesium 1.9 mg/dl (1.6-2.3); Potassium 4.2 mmol/L (3.5-5.1); Sodium 136 mmol/L (135-145); eGFR > 60.00
[2024-08-14 14:34] LABS: Absolute Neutrophils -Man Diff 8.4 10^3/uL (1.4-6.5); Normal RBC Morphology No; Platelets Checked Yes
[2024-08-14 14:35] LABS: Macrocytosis 1+; Ovalocytes 1+; Spherocytes 1+; Total Cells Counted 100
== END ==
LOC: OLABWHC 10:27
PROVIDERS: ATTENDING PHYSICIAN Family Medicine
DX: I10 Essential (primary) hypertension (principal); I48.91 Unspecified atrial fibrillation; D61.810 Antineoplastic chemotherapy induced pancytopenia
CPT/HCPCS: 36415; 80048; 83735; 85025

== ENCOUNTER → 2024-08-25 10:49 | Outpatient (REF) | payer OTHER, MEDICARE, SELFPAY ==
[2024-08-25 11:20] LABS: Urine Character Slightly Cloudy (Clear)
[2024-08-25 11:46] LABS: Urine Red Blood Cell >100 /HPF (0-2); Urine Squamous Cell 0-2 /LPF (Few)
== END ==
LOC: OLABWHC 10:49
PROVIDERS: ATTENDING PHYSICIAN Family Medicine
DX: D61.810 Antineoplastic chemotherapy induced pancytopenia (principal); R33.8 Other retention of urine; I10 Essential (primary) hypertension
CPT/HCPCS: 81003; 81015; 87086

== ENCOUNTER → 2024-08-27 10:03 | Outpatient (REF) | payer OTHER, MEDICARE, SELFPAY ==
[2024-08-27 10:49] LABS: Urine Character Clear (Clear)
[2024-08-27 11:19] LABS: Urine Red Blood Cell 70-80 /HPF (0-2); Urine Squamous Cell 0-2 /LPF (Few)
== END ==
LOC: OLABWHC 10:03
PROVIDERS: ATTENDING PHYSICIAN Family Medicine
DX: R33.8 Other retention of urine (principal)
CPT/HCPCS: 81003; 81015; 87077; 87086; 87186

== ENCOUNTER → 2024-10-01 10:00 | Outpatient (REF) | payer MEDICARE, SELFPAY ==
[2024-10-01 12:05] LABS: ALT (SGPT) < 10 U/L (0-50); AST (SGOT) 19 U/L (17-59); Albumin 3.8 g/dl (3.5-5.0); Alkaline Phosphatase 80 U/L (38-126); Blood Urea Nitrogen 17 mg/dl (9-20); Calcium 9.9 mg/dl (8.4-10.2); Carbon Dioxide 26 mmol/L (22-30); Chloride 106 mmol/L (98-107); Glucose 90 mg/dl (70-99); Potassium 5.0 mmol/L (3.5-5.1); Sodium 137 mmol/L (135-145); Total Protein 7.0 g/dl (6.3-8.2); eGFR > 60.00
== END ==
LOC: RAD 10:00
PROVIDERS: ATTENDING PHYSICIAN Internal Medicine Hematology & Oncology; FAMILY PHYSICIAN Internal Medicine; OTHER PHYSICIAN Internal Medicine Cardiovascular Disease
DX: C18.2 Malignant neoplasm of ascending colon (principal); C78.00 Secondary malignant neoplasm of unspecified lung; C49.A2 Gastrointestinal stromal tumor of stomach; G62.0 Drug-induced polyneuropathy; D50.9 Iron deficiency anemia, unspecified; I10 Essential (primary) hypertension; I25.5 Ischemic cardiomyopathy; I48.0 Paroxysmal atrial fibrillation
CPT/HCPCS: 36415; 71046; 71260; 74177; 80053; 83880; Q9967

== ENCOUNTER → 2024-10-10 10:01 | Outpatient (REF) | payer MEDICARE, SELFPAY | LOC: HWRCS 10:01 | PROVIDERS: ATTENDING PHYSICIAN Internal Medicine Cardiovascular Disease; FAMILY PHYSICIAN Internal Medicine | DX: I10 Essential (primary) hypertension (principal); I25.5 Ischemic cardiomyopathy; I48.0 Paroxysmal atrial fibrillation | CPT/HCPCS: 93306 ==

== ENCOUNTER → 2024-11-03 10:11 | Outpatient (REF) | payer MEDICARE, SELFPAY ==
[2024-11-03 10:55] LABS: Hematocrit 39.4 % (39.0-52.0); Hemoglobin 12.8 g/dL (13.0-18.0); Mean Corp Hgb Conc. 32.5 g/dL (33.0-37.0); Mean Corpuscular Volume 92.7 fL (80.0-94.0); Nucleated Red Blood Cells % 0 % (-); Platelet Count 157 10^3/uL (130-400); Red Cell Dist. Width 13.6 % (11.5-14.5)
[2024-11-03 11:31] LABS: ALT (SGPT) < 10 U/L (0-50); AST (SGOT) 16 U/L (17-59); Albumin 4.1 g/dl (3.5-5.0); Alkaline Phosphatase 98 U/L (38-126); Blood Urea Nitrogen 15 mg/dl (9-20); Calcium 10.8 mg/dl (8.4-10.2); Carbon Dioxide 28 mmol/L (22-30); Chloride 107 mmol/L (98-107); Glucose 103 mg/dl (70-99); HDL Cholesterol 45 mg/dl; LDL Cholesterol, Calculated 58 mg/dl; Potassium 5.1 mmol/L (3.5-5.1); Sodium 141 mmol/L (135-145); Total Protein 7.8 g/dl (6.3-8.2); Very Low Density Lipoprotein 19 mg/dl (0-30); eGFR > 60.00
== END ==
LOC: REG 10:11
PROVIDERS: ATTENDING PHYSICIAN Internal Medicine Hematology & Oncology; FAMILY PHYSICIAN Internal Medicine
DX: C18.2 Malignant neoplasm of ascending colon (principal); G62.0 Drug-induced polyneuropathy; C78.00 Secondary malignant neoplasm of unspecified lung; C49.A2 Gastrointestinal stromal tumor of stomach; D50.9 Iron deficiency anemia, unspecified; I10 Essential (primary) hypertension; Z85.46 Personal history of malignant neoplasm of prostate
CPT/HCPCS: 36415; 80053; 80061; 84153; 84154; 85025

== ENCOUNTER → 2024-11-05 15:43 | Outpatient (REF) | payer MEDICARE, SELFPAY ==
[2024-11-05 11:03] LABS: Hematocrit 35.7 % (39.0-52.0); Hemoglobin 11.5 g/dL (13.0-18.0); Mean Corp Hgb Conc. 32.2 g/dL (33.0-37.0); Mean Corpuscular Volume 95.5 fL (80.0-94.0); Platelet Count 157 10^3/uL (130-400); Red Cell Dist. Width 13.4 % (11.5-14.5)
== END ==
LOC: OIDL 15:43
PROVIDERS: ATTENDING PHYSICIAN Internal Medicine Hematology & Oncology
DX: C18.2 Malignant neoplasm of ascending colon (principal); G62.0 Drug-induced polyneuropathy; C78.00 Secondary malignant neoplasm of unspecified lung; C49.A2 Gastrointestinal stromal tumor of stomach; D50.9 Iron deficiency anemia, unspecified
CPT/HCPCS: 85025

== ENCOUNTER → 2024-11-17 09:18 | Outpatient (REF) | payer MEDICARE, SELFPAY ==
[2024-11-17 10:57] LABS: Hematocrit 38.5 % (39.0-52.0); Hemoglobin 12.5 g/dL (13.0-18.0); Mean Corp Hgb Conc. 32.5 g/dL (33.0-37.0); Mean Corpuscular Volume 92.8 fL (80.0-94.0); Nucleated Red Blood Cells % 0 % (-); Platelet Count 173 10^3/uL (130-400); Red Cell Dist. Width 13.9 % (11.5-14.5)
[2024-11-17 11:29] LABS: ALT (SGPT) < 10 U/L (0-50); AST (SGOT) 17 U/L (17-59); Albumin 4.0 g/dl (3.5-5.0); Alkaline Phosphatase 94 U/L (38-126); Blood Urea Nitrogen 15 mg/dl (9-20); Calcium 10.5 mg/dl (8.4-10.2); Carbon Dioxide 27 mmol/L (22-30); Chloride 106 mmol/L (98-107); Glucose 96 mg/dl (70-99); Potassium 5.1 mmol/L (3.5-5.1); Sodium 140 mmol/L (135-145); Total Protein 7.5 g/dl (6.3-8.2); eGFR > 60.00
== END ==
LOC: REG 09:18
PROVIDERS: ATTENDING PHYSICIAN Internal Medicine Hematology & Oncology; FAMILY PHYSICIAN Internal Medicine
DX: C18.2 Malignant neoplasm of ascending colon (principal); G62.0 Drug-induced polyneuropathy; C78.00 Secondary malignant neoplasm of unspecified lung; C49.A2 Gastrointestinal stromal tumor of stomach; D50.9 Iron deficiency anemia, unspecified
CPT/HCPCS: 36415; 80053; 85025

== ENCOUNTER → 2024-11-19 11:51 | Outpatient (REF) | payer MEDICARE, SELFPAY ==
[2024-11-19 11:59] LABS: CEA 285 ng/ml
== END ==
LOC: OIDL 11:51
PROVIDERS: ATTENDING PHYSICIAN Internal Medicine Hematology & Oncology
DX: C18.2 Malignant neoplasm of ascending colon (principal); C78.00 Secondary malignant neoplasm of unspecified lung; C49.A2 Gastrointestinal stromal tumor of stomach; D50.9 Iron deficiency anemia, unspecified; G62.0 Drug-induced polyneuropathy
CPT/HCPCS: 82378

== ENCOUNTER 2024-11-24 10:03 | Emergency (ER) | payer MEDICARE, SELFPAY ==
[2024-11-24 10:04] VITALS: BP 129/80
[2024-11-24 10:22] VITALS: BMI 22.9
--- NOTE | 2024-11-24 10:57 | ED.MUSCINJ ---
HPI-Injury
General
Chief Complaint: Musculo-Skeletal Complaint
Source: patient
Exam Limitations: none
Time Seen by Provider: 11/24/24 10:18
Nursing documentation reviewed up to this point in time: agreed with
History of Present Illness-Injury
Initial Injury comments:
Note:
CHIEF COMPLAINT(S)
Ankle pain
HISTORY OF PRESENT ILLNESS
The patient is a 79-year-old male who presents with pain in the left ankle. The patient states that this pain began a couple of weeks ago when he stood up with his foot asleep and twisted his ankle, leading to a sprain. Over time, there was
improvement in the symptoms, but the pain persisted. He reports still experiencing pain and was concerned about possibly having torn a ligament. Upon examination, a fracture was identified in the ankle, which, although displaced, does not
necessitate surgical intervention.
PHYSICAL EXAM
General: Alert, no acute distress.
Skin: Warm, dry.
Head: Normocephalic, atraumatic.
Neck: Supple, trachea midline.
Eye, Ears, Mouth and Throat: Oral mucosa moist.
Cardiovascular: Normal peripheral perfusion, No edema.
Respiratory: Respirations are non-labored.
Gastrointestinal: Abdomen nondistended.
Back: Normal range of motion, Normal alignment.
Musculoskeletal: Tenderness over the left ankle, indicating a fracture; normal range of motion in other areas, normal strength.
Neurological: Alert and oriented to person, place, time, and situation, No focal neurological deficit observed.
Psychiatric: Cooperative, appropriate mood & affect.
PLAN
- Immobilize the left ankle with a splint.
- Ensure the patient follows up with an electronic security specialist for further evaluation and management.
- Advise using a boot for support, with the patient mentioning already having one at home which can be used once the splint is removed.
- Provide pain management as needed.
- Arrange for the patient to receive the required splint application and provide the comfort of a warm blanket during the wait.
DIFFERENTIAL DIAGNOSIS
The Differential Diagnosis includes, in no particular order and is not limited to:
1. Ankle fracture
2. Ankle sprain
3. Ligament tear
4. Achilles tendon rupture
5. Osteoarthritis of the ankle
6. Gout
7. Rheumatoid arthritis
8. Tendonitis
9. Chronic ankle instability
10. Peripheral neuropathy
CARE-UPDATE
11/24/24 - 14:24
Patient will be discharged with instructions to follow up with orthopedics. Patient confirms they have crutches and a walker available at home, ensuring mobility support post-discharge. No new complaints or changes in condition noted.
Disposition:
SUMMARY OF ENCOUNTER
The patient is a 79-year-old male who presented with left ankle pain. He reported that the pain began a couple of weeks ago after accidentally twisting his ankle, causing what was initially thought to be a sprain. Despite some improvement, pain
persisted, leading to concern about a possible ligament tear. Examination and imaging identified a left Peña B bimalleolar fracture without dislocation. The fracture is displaced but does not require surgical intervention. As an emergency
management step, his ankle was immobilized with a splint.
DISPOSITION
The patient is deemed stable for discharge with follow-up arranged with an electronic security specialist.
PLAN
1. Immobilize left ankle with a splint.
2. Follow-up with an electronic security specialist for further evaluation and management.
3. Use a supportive boot post-splint removal, as the patient already possesses one at home.
4. Manage pain as needed.
5. Ensure mobility assistance with crutches and a walker at home.
PATIENT EDUCATION AND COUNSELING
The patient was advised on the importance of immobilizing the ankle and using supportive footwear post-splint removal. He was also counseled on signs of complications that would require immediate medical attention.
FOLLOW-UP INSTRUCTIONS
The patient is instructed to follow up with orthopedics to further assess the fracture and plan ongoing care.
MEDICAL DECISION MAKING
- Number and Complexity of Problems Addressed: Chronic conditions affecting care include an ankle fracture.
- Data:
- My independent interpretation of ankle imaging confirms a left Peña B bimalleolar fracture without dislocation.
- Risk: Consideration of Admission/Observation was not deemed necessary, as the patient is stable for outpatient management with close follow-up. Prescription medication was not needed immediately but will be managed as necessary for pain control
post-discharge.
DIAGNOSIS
1. Left Ankle Fracture (S82.604R)
Past History
Past History
ED Past Medical History: CAD, Cancer (Prostate and colon), HTN, Hypercholesterolemia, NC, Other (myelodysplastic syndrome), Other (left adrenal mass) and Other (Prostate cancer, bilateral hearing impairment)
ED Past Surgical History: Cardiac (2 cardiac stents and an automatic internal cardiac defibrillator placed. Cardiac arrest.) and Urological (Prostatectomy)
Social History
Tobacco: Former smoker
Drug: None
Personal:
Living: with family
Employment: Retired
Family History
Family History: Other
Phy Exam
Physical Exam
Physical Exam:
.
Injury Course
Orders/Labs/Results
Orders:
Orders
11/24/24 10:09
CR Ankle - Left Min 3 Views Urgent
Comment:
Reason For Exam: pain
11/24/24 10:56
Crutches-Treatment ONCE
Stirrup Splint Left-Treatment ONCE
Procedures
Splinting/Sling Placement
Left Ankle:
Procedure completed by: tech
Pre-splint extermity exam: abnormal
Type of splint: sugar-tong
Splint material: fiberglass
Splint checked by provider?: Yes
Normal distal neurovascular exam?: Yes
*Pulse Oximetry
SaO2: 99
Oxygen Mode of Delivery: Room air
Patient hypoxic: no
*Critical Care Note
Total Time (30-74mins, 75-104mins- exclusive of procedures): Not Applicable
ED Attending Note
-
Portions of this chart may have been created with voice recognition software.� Occasional wrong word or��sound alike� substitutions may have occurred due to the inherent limitations of voice recognition software.
Discharge Plan
Departure
Patient Disposition: Home (Routine Discharge)
Date of Disposition: 11/24/24
Time of Disposition: 12:01
Patient with high blood pressure during this ER visit?: Yes
Condition: Good
Discharge Problem:
Closed fracture of distal end of left fibula
Instructions: How to Use Crutches, Ankle Fracture (DC), Splint Care
Prescriptions:
No Action
atorvastatin 20 mg Tablet
20 mg PO HS
docusate sodium [Colace] 100 mg Capsule
100 mg PO TIDPRN PRN (Reason: constipation)
pantoprazole [Protonix] 40 mg tablet,delayed release (DR/EC)
40 mg PO DAILY Qty: 30 0RF
aspirin 81 mg Tablet,Delayed Release (Dr/Ec)
81 mg PO Q48H
carvedilol [Coreg] 3.125 mg Tablet
3.125 mg PO BID
lisinopril 5 mg Tablet
5 mg PO DAILY
Eliquis 5 mg Tablet
5 mg PO BID Qty: 60 1RF
midodrine 5 mg Tablet
5 mg PO TID@0800,1300,1800 Qty: 60 0RF
Rx Instructions:
*Avoid dosing after evening meal or within 4 hours of bedtime*
Hold for systolic blood pressure>120 mmHg
Referrals:
Apolinar Wick MD [Active, Orthopedics] - Call in 1-3 days for appt
Gabino Aleman MD [Family Provider, Internal Medicine]
Interventions
Interventions:
*Risk Screen - Suicide Last Done: 11/24/24 10:04
*General Assessment Last Done: 11/24/24 10:04
*Neglect/Abuse Screening Last Done: 11/24/24 10:04
*ED- Fall Risk Assessment Last Done: 11/24/24 10:22
*ED COVID-19 Vaccine History Last Done: 11/24/24 10:22
*ED Influenza Vaccine History Last Done: 11/24/24 10:22
*Nursing Disposition Last Done: 11/24/24 12:33
ED-Musculoskeletal Assessment Last Done: 11/24/24 10:22
Discharge Date and Time
Discharge Date/Time: 11/24/24 12:34
Print Language: PASHTO
[2024-11-24 12:09] VITALS: BP 152/81
== END 2024-11-24 12:34 | disposition home or self-care (01) ==
LOC: EMR 10:03
PROVIDERS: EMERGENCY PHYSICIAN Emergency Medicine; FAMILY PHYSICIAN Internal Medicine
DX: S82.832A Other fracture of upper and lower end of left fibula, initial encounter for closed fracture (principal); X50.1XXA Overexertion from prolonged static or awkward postures, initial encounter; I25.10 Atherosclerotic heart disease of native coronary artery without angina pectoris; I10 Essential (primary) hypertension; E78.00 Pure hypercholesterolemia, unspecified; I25.2 Old myocardial infarction; D46.9 Myelodysplastic syndrome, unspecified; H91.93 Unspecified hearing loss, bilateral; Z79.82 Long term (current) use of aspirin; Z79.01 Long term (current) use of anticoagulants; Z86.74 Personal history of sudden cardiac arrest; Z95.810 Presence of automatic (implantable) cardiac defibrillator; Z95.5 Presence of coronary angioplasty implant and graft; Z87.891 Personal history of nicotine dependence; Z85.038 Personal history of other malignant neoplasm of large intestine; Z85.46 Personal history of malignant neoplasm of prostate; Z90.79 Acquired absence of other genital organ(s)
CPT/HCPCS: 99283; 73610

== ENCOUNTER 2024-11-28 15:41 | Inpatient (IN) | payer MEDICARE, SELFPAY ==
[2024-11-28] VITALS (8 sets, daily range): BP systolic 90–156; BP diastolic 58–89; BMI 23.4; BMI 22.3
--- NOTE | 2024-11-28 11:17 | ED.GENMED ---
History of Present Illness
General
Chief Complaint: Rectal Bleeding
Source: patient
Exam Limitations: none
Time Seen by Provider: 11/28/24 11:03
History of Present Illness
History of Present Illness:
See MDM
Past History
Past History
ED Past Medical History: CAD, Cancer (Prostate and colon), HTN, Hypercholesterolemia, CA, Other (myelodysplastic syndrome), Other (left adrenal mass) and Other (Prostate cancer, bilateral hearing impairment)
ED Past Surgical History: Cardiac (2 cardiac stents and an automatic internal cardiac defibrillator placed. Cardiac arrest.) and Urological (Prostatectomy)
Social History
Tobacco: Former smoker
Drug: None
Personal:
Living: with family
Employment: Retired
Family History
Family History: Other
Phy Exam
Physical Exam
Physical Exam:
See MDM
Course
Orders/Labs/Results
Orders:
Orders
11/28/24 11:14
CT Abd/pelvis W Iv Cont Urgent
Comment: adrenal Ca
Reason For Exam: lower abd pain
Urinalysis Reflex To Culture Urgent
11/28/24 11:21
Complete Blood Count/With Diff Urgent
Comprehensive Metabolic Panel Urgent
11/28/24 14:00
Heparin Pf [Heparin Lock Flush] 500 unit IV PER PROTOCOL
11/28/24 14:10
Enema- Treatment ONCE
Type: Milk of Molasses
Abnormal Lab Results
11/28/24
11:21
WBC 4.7 L 10^3/uL
(4.8-10.8)
RBC 3.64 L 10^6/uL
(4.70-6.10)
Hgb 11.0 L g/dL
(13.0-18.0)
Hct 33.0 L %
(39.0-52.0)
Absolute Lymphs (auto) 0.4 L 10^3/uL
(1.2-3.4)
Immature Gran % 0.6 H %
(0-0.5)
Lymphocytes % 9.2 L %
(20.5-51.1)
Monocytes % 13.2 H %
(1.7-9.3)
Carbon Dioxide 21 L mmol/L
(22-30)
Glucose 103 H mg/dl
(70-99)
Total Bilirubin 2.0 H mg/dl
(0.2-1.3)
11/28/24 11:21
11/28/24 11:21
Vital Signs
Initial and Last Documented VS:
Initial Vital Signs
Temp Pulse Resp BP
98.2 F 96 20 94/77
11/28/24 11:00 11/28/24 11:00 11/28/24 11:00 11/28/24 11:00
Last Documented Vital Signs
Temp Pulse Resp BP Pulse Ox
98.2 F 66 18 113/71 99
11/28/24 11:00 11/28/24 14:00 11/28/24 14:00 11/28/24 14:00 11/28/24 13:11
MDM/Problems Addressed
Differential Diagnosis Includes:
Note:
CHIEF COMPLAINT(S)
Abdominal pain and a sensation of diarrhea.
HISTORY OF PRESENT ILLNESS
The patient is a 79-year-old male who presents with a history of severe abdominal pain that occurred last night. The pain was described as severe for a few seconds and then subsided. Following the pain, the patient experienced expulsion of two to
three tablespoons of watery stool. This episode repeated 17 minutes later. The patient reports no blood in the stool and describes his current bowel movements as regular stools without diarrhea. The patient also has a significant medical history of
adrenal cancer, with a large adrenal growth being treated with chemotherapy. He reports no abdominal pain currently but describes soreness. The patient denies any current rectal bleeding and reports conducting a self-digital rectal exam with no
unusual findings.
On exam, patient is a large brown stool in his diaper that is guaiac negative
CHRONIC MEDICAL CONDITIONS SIGNIFICANTLY AFFECTING CARE
Chronic conditions affecting care include adrenal cancer currently being treated with chemotherapy.
PHYSICAL EXAM
General: Alert, no acute distress.
Skin: Warm, dry.
Head: Normocephalic, atraumatic
Neck: Appears supple, trachea midline.
Eyes, Ears, Nose, Mouth, and Throat: Moist mucous membranes
Cardiovascular: No signs of cyanosis
Respiratory: Respirations are non-labored.
Abdomen: Non-distended. Soft. No significant tenderness
Musculoskeletal: No deformities
Neurological: No focal neurological deficit observed.
Psychiatric: Cooperative, appropriate mood and affect.
SUMMARY OF ENCOUNTER
The patient is a 79-year-old male presenting with a recent history of severe abdominal pain followed by watery stool. He denies current diarrhea or rectal bleeding. The medical workup included a physical examination that noted abdominal soreness.
The past medical history is significant for adrenal cancer under chemotherapy treatment. The primary concern was to assess the source of abdominal pain and verify the absence of gastrointestinal bleeding as initially reported by emergency services.
DIAGNOSIS
- Abdominal Pain, unspecified (ICD-10 R10.9)
- Encounter for palliative care focusing on chemotherapy for neoplasm (ICD-10 Z51.11)
(Note: This diagnosis may not fully capture the complex nature of the patients condition without further diagnostic evaluation. Further investigation may be required to provide a complete picture of the patients health status.)
11/28/24 - 14:13
The outbound sales consultant reported stair corococolitis of the rectum and noted a new mild left hydronephrosis. Plan to order an enema
SUMMARY OF ENCOUNTER
The patient, a 79-year-old male with a history of adrenal cancer undergoing chemotherapy, presented to the emergency department with complaints of intermittent abdominal pain. He had a significant bowel movement prior to obtaining a CT scan, which
still revealed evidence of stercoral colitis. Given the patients history and the CT findings, management included administering an enema and planning for admission to establish a bowel regimen and conduct serial abdominal exams to monitor his
condition.
DISPOSITION
Admit
ASSESSMENT
The patients presentation is suggestive of stercoral colitis, likely exacerbated by his existing chemotherapy treatment. The ongoing abdominal pain necessitates close observation and management.
EMERGENCY TREATMENTS ADMINISTERED
Enema for bowel movement facilitation.
PLAN
Admit the patient for inpatient care to implement a bowel regimen and conduct serial abdominal exams to assess and manage his abdominal pain and stercoral colitis.
INDEPENDENT REVIEW OF LABS AND INTERPRETATION OF TESTS
My independent interpretation of the CT scan indicates evidence of stercoral colitis.
MANAGEMENT OF THE PATIENTS CARE WAS DISCUSSED WITH
Discussed management plan with the admitting team to ensure continuity of care and appropriate bowel regimen and monitoring.
MEDICAL DECISION MAKING
1. Number and Complexity of Problems Addressed:
Chronic conditions affecting care include adrenal cancer currently being treated with chemotherapy; Differential diagnosis includes abdominal pain (ICD-10 R10.9) and stercoral colitis.
2. Data:
- Category 1:
The CT scan reviewed indicates evidence of stercoral colitis. Records indicate the patients chemotherapy treatment and recent abdominal pain episodes.
- Category 3:
Management discussed with the admitting team, emphasizing the need for monitoring and bowel regimen.
3. Risk:
The patient is admitted for closer monitoring due to the risk of complications from stercoral colitis combined with his current chemotherapy treatment and underlying conditions.
DIAGNOSIS
- Stercoral Colitis (ICD-10 K56.599)
- Abdominal Pain, unspecified (ICD-10 R10.9)
*Pulse Oximetry
Oxygen Mode of Delivery: Room air
Patient hypoxic: no
*Critical Care Note
Total Time (30-74mins, 75-104mins- exclusive of procedures): Not Applicable
ED Attending Note
-
Portions of this chart may have been created with voice recognition software.� Occasional wrong word or��sound alike� substitutions may have occurred due to the inherent limitations of voice recognition software.
Discharge Plan
Departure
Patient Disposition: Admit
Date of Disposition: 11/28/24
Time of Disposition: 14:13
Admit to: Med/Surg
Presentation/result/management discussed w/ accepting MD/DO: Hospitalist
Discharge Problem:
Stercoral colitis, Hydronephrosis
Prescriptions:
No Action
atorvastatin 20 mg Tablet
20 mg PO HS
docusate sodium [Colace] 100 mg Capsule
100 mg PO TIDPRN PRN (Reason: constipation)
pantoprazole [Protonix] 40 mg tablet,delayed release (DR/EC)
40 mg PO DAILY Qty: 30 0RF
aspirin 81 mg Tablet,Delayed Release (Dr/Ec)
81 mg PO Q48H
carvedilol [Coreg] 3.125 mg Tablet
3.125 mg PO BID
lisinopril 5 mg Tablet
5 mg PO DAILY
Eliquis 5 mg Tablet
5 mg PO BID Qty: 60 1RF
midodrine 5 mg Tablet
5 mg PO TID@0800,1300,1800 Qty: 60 0RF
Rx Instructions:
*Avoid dosing after evening meal or within 4 hours of bedtime*
Hold for systolic blood pressure>120 mmHg
Referrals:
Gabino Aleman MD [Family Provider, Internal Medicine]
Interventions
Interventions:
*Risk Screen - Suicide Last Done: 11/28/24 11:06
*General Assessment Last Done: 11/28/24 11:06
*Neglect/Abuse Screening Last Done: 11/28/24 11:06
*ED- Fall Risk Assessment Last Done: 11/28/24 11:00
*ED COVID-19 Vaccine History Last Done: 11/28/24 11:00
*ED Influenza Vaccine History Last Done: 11/28/24 11:00
KV-Ruvjtl-Xiboziypmd Assessment Last Done: 11/28/24 11:17
ED- Cardiac Assessment Last Done: 11/28/24 11:17
ED- Pulmonary Assessment Last Done: 11/28/24 11:17
Discharge Date and Time
Print Language: ITALIAN
[2024-11-28 11:34] LABS: Hematocrit 33.0 % (39.0-52.0); Hemoglobin 11.0 g/dL (13.0-18.0); Mean Corp Hgb Conc. 33.3 g/dL (33.0-37.0); Mean Corpuscular Volume 90.7 fL (80.0-94.0); Nucleated Red Blood Cells % 0 % (-); Platelet Count 150 10^3/uL (130-400); Red Cell Dist. Width 14.1 % (11.5-14.5)
[2024-11-28 11:49] LABS: ALT (SGPT) < 10 U/L (0-50); AST (SGOT) 17 U/L (17-59); Albumin 3.6 g/dl (3.5-5.0); Alkaline Phosphatase 94 U/L (38-126); Blood Urea Nitrogen 17 mg/dl (9-20); Calcium 9.8 mg/dl (8.4-10.2); Carbon Dioxide 21 mmol/L (22-30); Chloride 107 mmol/L (98-107); Estimated Creatinine Clearance 64 ml/min; Glucose 103 mg/dl (70-99); Potassium 4.0 mmol/L (3.5-5.1); Sodium 137 mmol/L (135-145); Total Protein 6.8 g/dl (6.3-8.2); eGFR > 60.00
--- NOTE | 2024-11-28 14:33 | HPS.HSE ---
Addendum entered and electronically signed by Robert Singh MD 11/28/24 16:03:
This is an addendum to H&P written by Crystal Olsen on 11/28/2024. �Patient seen and examined independently with JEWEL OLIVING MACHINE OPERATOR.
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
status post ICD with recovered EF, prostate cancer status post prostatectomy, hyperlipidemia, presenting with constipation and generalized abdominal discomfort, rectal pain and squirting diarrhea starting last night.
He was seen in the emergency recently for left distal fibular fracture for which he is wearing Anil wrap and can bear weight.
Vital signs show blood pressure 94/77.
Labs show stable leukopenia, anemia.
CT abdomen pelvis shows bowel wall thickening and inflammatory change adjacent to the rectum suggestive of proctitis. �Given fecal retention stercoral colitis is possible. �Mild left hydronephrosis and mild left hydroureter which is new.
�Heterogeneous necrotic left adrenal mass secondary to adrenal metastasis unchanged.
Patient with constipation/proctitis/stercoral colitis secondary to chemotherapy. �MiraLAX and senna Colace to be started. �Enema to be given. �Mild left hydronephrosis and mild left hydroureter likely secondary to constipation. �Bladder scan
protocol.
Original Note:
Family Physician
-
Family Physician: Juan Manuel Aleman
Chief Complaint
-
Rectal pain, constipation x 3 days
History of Present Illness
79-year-old male complaining of severe abdominal pain that occurred last night. He reports he had 2 to 3 tablespoons of watery stool he reports occurring every 17 minutes time several times. He reports his last normal bowel movement was on Sunday
3 days ago. He also reports some difficulty urinating today. He reports no blood or mucus in stool and is having regular stools however on CT he is showing fecal retention/stercoral colitis despite large bowel movement in ER prior to CT abdomen
pelvis exam. He is on his third dose of chemotherapy was treated on 11/19- receives every other week for current metastatic Colon CA to left adrenal. He denies fever, chills, chest pain, palpitations, cough, shortness of breath, nausea,
vomiting. He has history of metastatic colon cancer with necrotic left adrenal and lung mets right lung base August 2024 is currently on chemotherapy, initial colon cancer status post bowel resection and chemo 12 treatments diagnosed 2022,
pancytopenia on chemo, port right upper chest wall, GIST s/p resection, prostate cancer status post prostatectomy, HTN, orthostatic hypotension with prior chemotherapy August 2024, paroxysmal A-fib, CAD status post stent, ischemic cardiomyopathy
recovered EF, dual-chamber ICD.
Medical History
Past Medical History
Past Medical History: Reports Other
Additional Past Medical History:
Metastatic Colon Cancer with Left Adrenal Tumor s/p Colon Resection and Radiotherapy for Lung Nodule
GIST s/p Resection
Coronary Artery Disease s/p Stent
Ischemic Cardiomyopathy s/p ICD with Recovered EF
Paroxysmal Atrial Fibrillation
Orthostatic Hypotension
Hyperlipidemia
Prostate Cancer
Past Surgical History: Reports Other
Additional Past Surgical History:
Right Colectomy 2022 due to colon cancer
GIST Resection
Prostatectomy
Cardiac Stent
Dual Chamber ICD
VT Ablation
Social History
Tobacco: Non-smoker
Alcohol: None
Drug: None
Personal:
Living: With Family ()
Employment: Retired
Family History
Family History: Not pertinent
Allergies / Home Medications
Allergies reflects when Allergies were last updated in [facility].
Home Medications with original date entered in [facility]
Allergy/Medication List:
Allergies
Allergy/AdvReac Type Severity Reaction Status Date / Time
adhesive Allergy Rash Verified 11/28/24 11:05
niacin Allergy Unknown Verified 11/28/24 11:05
Home Medications
atorvastatin 20 mg tablet 20 mg PO HS High Cholesterol 02/28/23
docusate sodium 100 mg capsule (Colace) 100 mg PO TIDPRN PRN constipation 05/27/24
aspirin 81 mg tablet,delayed release 81 mg PO Q48H Blood Clot Prevention/Tx 08/08/24
carvedilol 3.125 mg tablet (Coreg) 3.125 mg PO BID Heart Disease/Condition 08/08/24
lisinopril 5 mg tablet 5 mg PO DAILY Blood Pressure 08/08/24
Held on 08/12/24. Instructions: Resume on 09/02/24. Resume this medication if and only if outpatient provider says okay to resume this medication.
Review of Systems
-
History Source: Patient
A 12 point ROS was completed and negative except as noted: Yes
Constitutional: Denies Fever or Chills
EENT: Denies Sore Throat or Runny Nose
Respiratory: Denies Cough or Trouble Breathing
Cardiac: Denies Chest Pain, Diaphoresis, Palpitations or Syncope
Abdomen/GI: Reports Abdominal Pain (Generalized lower abdomen), Diarrhea (Watery) and Constipated (3 days); Denies Nausea, Vomiting, Bloody Stools or Black Stools
: Reports Difficulty Voiding; Denies Dysuria, Frequency, Flank Pain, Incontinence, Urgency or Bleeding
Musculoskeletal: Reports Other (Current Anil wrap to left leg due to recent fracture of distal fibula); Denies Joint Pain or Edema
Skin: Denies Itching or Rash
Neurological: Denies Dizzy, Headache or Weakness
Endocrine: Reports No Symptoms
Hematologic/Lymphatic: Reports No Symptoms
Psych: Reports Calm
Physical Exam
Vital Signs
Vital Signs
Temp Pulse Resp BP Pulse Ox
98.2 F 66 18 113/71 99
11/28/24 11:00 11/28/24 14:00 11/28/24 14:00 11/28/24 14:00 11/28/24 13:11
Physical Exam
General: Conversant; No Fever or Chills
HEENT: NormoCephalic, Anicteric, Moist mucous membranes, PERRLA, [place] Conjunctivae and No Ptosis
Respiratory: Clear; No Wheezes, Rales or Rhonchi
Cardiac: S1/S2 and Regular Rhythm; No Murmur, Rub, Gallop or Peripheral Edema
GI: Soft, Non Tender, Non Distended, Normal Bowel Sounds and No Hepatosplenomegaly
Rectal: Deferred by Provider
Genito-urinary: Deferred by me
Musculoskeletal: No Clubbing, No Cyanosis, No Edema and Other (Anil wrap present to left lower extremity due to recent distal fibula fracture on 11/24/2024)
Skin: Warm, Dry and Other (Port right upper chest wall); No Rash or Jaundice
Neuro: AO x 3, No Motor Deficits, Nonfocal/grossly intact, Cranial Nerves Intact and No Sensory Deficits; No Slurred Speech, Facial Droop, Tremors or Sedated
Psych: Calm
Laboratory Results
-
11/28/24 11:21
11/28/24 11:21
Laboratory Results
Total Bilirubin 2.0 mg/dl (0.2-1.3) H 11/28/24 11:21
AST 17 U/L (17-59) 11/28/24 11:21
ALT < 10 U/L (0-50) 11/28/24 11:21
Alkaline Phosphatase 94 U/L (38-126) 11/28/24 11:21
Impression/Plan
-
Impression/plan:
Admit to [facility]
#Stercoral colitis/fecal retention
Last normal bowel movement 3 days ago
- Had large BM in ER before CT still with stercoral colitis
Patient has been taking Colace without relief
- Enema to be given in ER
-Start MiraLAX 17 g daily, start Senokot twice daily
- Monitor bowel movement
CT abdomen pelvis: 1. Bowel wall thickening and inflammatory change adjacent to the rectum, new compared to prior CT, suggestive of proctitis. Given fecal retention in this region,
Stercoral colitis is a differential consideration.
2. Mild left hydronephrosis and mild left hydroureter, new compared to prior CT dated 10/01/2024. Left ureter is dilated to the level where it crosses over the left common iliac artery.
No definite obstructing stone or mass appreciated.
3. Heterogeneous, necrotic left adrenal mass, grossly unchanged to 10/01/2024, likely representing left adrenal metastasis.
4. Lung nodules at the right lung base, partially imaged on the current abdominal pelvic CT, measuring up to 6 mm in diameter.
#Mild LEFT hydronephrosis/mild left hydroureter new since 10/01/2024 no obstructing stone
#History of Enterococcus Faecalis 08/27/2024 -Pansensitive
-Monitor urine output with bladder scan
- UA /CLINICAL STAFF EDUCATOR
#Recent left distal fibula fracture 11/24/2024
-Treated with Anil wrap in ER
- Patient reports no difficulty walking on foot
#Metastatic COLON Cancer with necrotic LEFT Adrenal and lung METS RIGHT LUNG BASE August 2024 on current chemotherapy
#Initial colon cancer status post colon resection and 12 chemo treatments 2022
Port right upper chest wall
-Last chemo reports gets every other week by [facility] Dr. Bartlett
-
#History of pancytopenia on chemo
WBC 4.7, Hgb 11
#GIST status post resection
#Prostate cancer status post prostatectomy
#HTN/orthostatic hypotension with prior chemotherapy August 2024
BP 113/71
-Continue lisinopril 5 mg daily with hold parameters
#Paroxysmal A-fib
- Continue aspirin 81 mg daily, Coreg 3.125 mg twice daily
#CAD status post stent
-Continue aspirin, atorvastatin, Coreg 3.125 mg twice daily
#Ischemic cardiomyopathy status post ICD with recovered EF
#Dual-chamber ICD
DVT prophylaxis
Continue Heparin sq
Full code
--- NOTE | 2024-11-28 15:54 | CM ---
Chart reviewed and spoke with patient at ED bedside.
Lives in a 2 story home with . [address] bathroom
Independent, walks with walker as needed
DME walker, cane
PCP Dr. Juan Manuel Aleman
Rx plan yes
Pharmacy [facility] in [place]
VN ; Fly for PT
SNF [facility] in the past
CM will continue to follow up for any dcp needs
--- NOTE | 2024-11-28 18:34 | PTCARENOTE ---
patient arrived to unit. Ox4, VSS, patient in NAD. Patient denies any pain. patient has L foot wrapped with LI band and states that there is a crack in his foot per MD. Patient states there is no wound under bandage and does not want bandage
unwrapped. will continue to monitor.
[2024-11-28] MEDS: HEPARIN 5000 UNITS SC (20:02)
[2024-11-28] MEDS: SENOKOT-S 1 TABLET PO (20:02)
[2024-11-29 05:02] LABS: Urine Character Clear (Clear)
[2024-11-29 05:11] LABS: Urine Red Blood Cell 0-2 /HPF (0-2); Urine Squamous Cell 0-2 /LPF (Few); Urine White Cell 0-2 /HPF (0-5)
[2024-11-29 07:40] VITALS: BP 158/84
[2024-11-29] MEDS: SENOKOT-S 1 TABLET PO (07:43)
[2024-11-29] MEDS: HEPARIN 5000 UNITS SC (07:43)
[2024-11-29] MEDS: MIRALAX 17 GRAMS PO (07:43)
[2024-11-29 08:57] LABS: Hematocrit 33.8 % (39.0-52.0); Hemoglobin 11.5 g/dL (13.0-18.0); Mean Corp Hgb Conc. 34.0 g/dL (33.0-37.0); Mean Corpuscular Volume 91.8 fL (80.0-94.0); Nucleated Red Blood Cells % 0 % (-); Platelet Count 166 10^3/uL (130-400); Red Cell Dist. Width 14.0 % (11.5-14.5)
--- NOTE | 2024-11-29 09:05 | W.PN.HOSP.TC ---
Assessment / Plan
Assessment / Plan
Anticipated Discharge: > 48 hours
Subjective/Interval History
-
Date of Service: November 29, 2024
Objective Data
-
Labs:
Laboratory Results
11/29/24
08:46
WBC 4.4 L
Hgb 11.5 L
Hct 33.8 L
Plt Count 166
Sodium Pending
Potassium Pending
Chloride Pending
Carbon Dioxide Pending
BUN Pending
Creatinine Pending
Glucose Pending
Calcium Pending
Total Bilirubin Pending
AST Pending
ALT Pending
Alkaline Phosphatase Pending
Vital Signs:
Vital Signs
Temp Pulse Resp BP Pulse Ox
98.1 F 67 16 158/84 100
11/29/24 07:40 11/29/24 07:40 11/29/24 07:40 11/29/24 07:40 11/29/24 07:40
I&O
11/28/24 11/29/24 11/30/24
06:59 06:59 06:59
Intake Total 720 / 720
Output Total 600 / 600
Balance 120 / 120
[2024-11-29 09:17] LABS: ALT (SGPT) 10 U/L (0-50); AST (SGOT) 17 U/L (17-59); Albumin 3.5 g/dl (3.5-5.0); Alkaline Phosphatase 92 U/L (38-126); Blood Urea Nitrogen 17 mg/dl (9-20); Calcium 9.5 mg/dl (8.4-10.2); Carbon Dioxide 23 mmol/L (22-30); Chloride 105 mmol/L (98-107); Estimated Creatinine Clearance 68 ml/min; Glucose 116 mg/dl (70-99); Potassium 3.7 mmol/L (3.5-5.1); Sodium 138 mmol/L (135-145); Total Protein 6.6 g/dl (6.3-8.2); eGFR > 60.00
--- NOTE | 2024-11-29 11:29 | W.DCSUMMARY ---
Discharge Summary
Discharge Data
Date of Admission: 11/28/24
Date of Discharge: 11/29/24
Total time spent discharging patient (in min): 31
-
Pending Results: No
Hospital Course
Attending physician on day of discharge:
Yisel Thomas MD
Admission diagnosis:
Rectal pain
Discharge diagnosis:
Fecal stercoral colitis versus proctitis
Secondary diagnoses:
Left hydronephrosis
Consultations:
None
Procedures:
None
Hospital course:
79M with metastatic colon CA/GIST on chemo, prostate CA s/p prostatectomy, P/W constipation, abdominal pain, rectal pain, CT showed inflammatory changes, proximal Martin versus fecal retention stercoral colitis, mild left hydronephrosis, mild left
hydroureter. Patient treated with MiraLAX, senna/Colace/enema ordered. Patient had multiple large bowel movements, felt improved, denies further rectal pain.
Diagnostic Findings:
CT abdomen pelvis shows bowel wall thickening and inflammatory change adjacent to the rectum suggestive of proctitis. Given fecal retention stercoral colitis is possible. Mild left hydronephrosis and mild left hydroureter which is new.
Heterogeneous necrotic left adrenal mass secondary to adrenal metastasis unchanged.
Physical exam on discharge:
Gen: NAD
HEENT: PERRLA, EOMI, MMM, neck supple
Cards: RRR, no M/G/R
Resp: Lungs CTAB, no W/R/R
GI: soft, NT/ND/NABS
MSK: No edema
Skin: warm and dry, no rash, ulcer or lesions
Heme: No LAD
Psych: Calm
Neuro: AAOx3
Discharge disposition:
Home
Discharge Plan
-
Patient Disposition: Home (Routine Discharge)
Discharge Diagnosis/Procedures: fecal retention, proctitis vs stercal colitis
Diet: Regular
Activity: As tolerated
Referrals:
Gabino Aleman MD [Family Provider, Internal Medicine]
Prescriptions:
New
bisacodyl 10 mg Suppository
10 mg MI [id number] PRN (Reason: constipation) Qty: 0 0RF
polyethylene glycol 3350 17 gram Powder In Packet
17 g PO DAILY Qty: 0 0RF
sennosides-docusate sodium [Senna Plus] 8.6-50 mg Tablet
1 tab PO BIDPRN PRNQty: 0 0RF
Continued
atorvastatin 20 mg Tablet
20 mg PO HS
aspirin 81 mg Tablet,Delayed Release (Dr/Ec)
81 mg PO Q48H
carvedilol [Coreg] 3.125 mg Tablet
3.125 mg PO BID
lisinopril 5 mg Tablet
5 mg PO DAILY
Changed
docusate sodium [Colace] 100 mg Capsule
100 mg PO BID Qty: 0 0RF
Discharge Orders:
Discharge Patient (As Directed); Ordered 11/29/24
Ordered By: Yisel Thomas
Discharge Date and Time
Print Language: CITIZEN OF [place]
--- NOTE | 2024-11-29 12:11 | CM ---
CM reviewed chart, patient for d/c today.
Patient seen bedside, confirms transportation home.
Patient denies need for VN/ home therapy.
IMM provided 11/28/24.
CM will continue to follow.
Plan; home no needs
[2024-11-29] MEDS: FLUZONE HIGH-DOSE 2025-26 0.5 ML IM (12:18)
[2024-11-29 13:17] VITALS: BP 145/72
== END 2024-11-29 14:13 | disposition home or self-care (01) | DRG 394 ==
LOC: 4 WEST ACU 15:41
PROVIDERS: Clinical Nurse Specialist Family Health; ADMITTING PHYSICIAN Hospitalist; ATTENDING PHYSICIAN Internal Medicine; EMERGENCY PHYSICIAN Student in an Organized Health Care Education/Training Program; FAMILY PHYSICIAN Internal Medicine
DX: K62.89 Other specified diseases of anus and rectum (principal); C18.9 Malignant neoplasm of colon, unspecified; C78.01 Secondary malignant neoplasm of right lung; C79.72 Secondary malignant neoplasm of left adrenal gland; N13.30 Unspecified hydronephrosis; K52.89 Other specified noninfective gastroenteritis and colitis; T45.1X5A Adverse effect of antineoplastic and immunosuppressive drugs, initial encounter; D46.9 Myelodysplastic syndrome, unspecified; K59.00 Constipation, unspecified; I10 Essential (primary) hypertension; I25.10 Atherosclerotic heart disease of native coronary artery without angina pectoris; I48.0 Paroxysmal atrial fibrillation; E78.5 Hyperlipidemia, unspecified; I95.1 Orthostatic hypotension; I25.5 Ischemic cardiomyopathy; Z79.82 Long term (current) use of aspirin; Z79.899 Other long term (current) drug therapy; Z85.46 Personal history of malignant neoplasm of prostate; Z87.891 Personal history of nicotine dependence; Z95.5 Presence of coronary angioplasty implant and graft; Z95.810 Presence of automatic (implantable) cardiac defibrillator; Z79.60 Long term (current) use of unspecified immunomodulators and immunosuppressants
CPT/HCPCS: 74177; 80053; 81003; 81015; 85025; 90662; 97162; 99284; G0008; Q9967

== ENCOUNTER → 2024-12-01 09:50 | Outpatient (REF) | payer MEDICARE, SELFPAY ==
[2024-12-01 11:20] LABS: Hematocrit 36.5 % (39.0-52.0); Hemoglobin 11.6 g/dL (13.0-18.0); Mean Corp Hgb Conc. 31.8 g/dL (33.0-37.0); Mean Corpuscular Volume 94.3 fL (80.0-94.0); Nucleated Red Blood Cells % 0 % (-); Platelet Count 177 10^3/uL (130-400); Red Cell Dist. Width 14.4 % (11.5-14.5)
[2024-12-01 12:00] LABS: ALT (SGPT) < 10 U/L (0-50); AST (SGOT) 17 U/L (17-59); Albumin 3.8 g/dl (3.5-5.0); Alkaline Phosphatase 90 U/L (38-126); Blood Urea Nitrogen 17 mg/dl (9-20); Calcium 10.0 mg/dl (8.4-10.2); Carbon Dioxide 25 mmol/L (22-30); Chloride 110 mmol/L (98-107); Glucose 95 mg/dl (70-99); Potassium 4.1 mmol/L (3.5-5.1); Sodium 141 mmol/L (135-145); Total Protein 7.1 g/dl (6.3-8.2); eGFR > 60.00
== END ==
LOC: REG 09:50
PROVIDERS: ATTENDING PHYSICIAN Internal Medicine Hematology & Oncology; FAMILY PHYSICIAN Internal Medicine
DX: C18.2 Malignant neoplasm of ascending colon (principal); G62.0 Drug-induced polyneuropathy; C78.00 Secondary malignant neoplasm of unspecified lung; C49.A2 Gastrointestinal stromal tumor of stomach; D50.9 Iron deficiency anemia, unspecified
CPT/HCPCS: 36415; 80053; 85025

== ENCOUNTER → 2024-12-08 14:05 | Outpatient (REF) | payer MEDICARE, SELFPAY | LOC: RAD 14:05 | PROVIDERS: ATTENDING PHYSICIAN Internal Medicine Hematology & Oncology; FAMILY PHYSICIAN Internal Medicine | DX: C18.2 Malignant neoplasm of ascending colon (principal); G62.0 Drug-induced polyneuropathy; C78.00 Secondary malignant neoplasm of unspecified lung; C49.A2 Gastrointestinal stromal tumor of stomach | CPT/HCPCS: 71260; 74177; Q9967 ==

== ENCOUNTER → 2024-12-15 10:24 | Outpatient (REF) | payer MEDICARE, SELFPAY ==
[2024-12-15 11:42] LABS: Hematocrit 34.8 % (39.0-52.0); Hemoglobin 11.2 g/dL (13.0-18.0); Mean Corp Hgb Conc. 32.2 g/dL (33.0-37.0); Mean Corpuscular Volume 98.3 fL (80.0-94.0); Nucleated Red Blood Cells % 0 % (-); Platelet Count 162 10^3/uL (130-400); Red Cell Dist. Width 15.5 % (11.5-14.5)
[2024-12-15 12:25] LABS: ALT (SGPT) < 10 U/L (0-50); AST (SGOT) 17 U/L (17-59); Albumin 3.8 g/dl (3.5-5.0); Alkaline Phosphatase 81 U/L (38-126); Blood Urea Nitrogen 22 mg/dl (9-20); Calcium 10.0 mg/dl (8.4-10.2); Carbon Dioxide 24 mmol/L (22-30); Chloride 105 mmol/L (98-107); Glucose 92 mg/dl (70-99); Potassium 4.8 mmol/L (3.5-5.1); Sodium 134 mmol/L (135-145); Total Protein 6.9 g/dl (6.3-8.2); eGFR > 60.00
== END ==
LOC: REG 10:24
PROVIDERS: ATTENDING PHYSICIAN Internal Medicine Hematology & Oncology; FAMILY PHYSICIAN Internal Medicine
DX: C18.2 Malignant neoplasm of ascending colon (principal); G62.0 Drug-induced polyneuropathy; C78.00 Secondary malignant neoplasm of unspecified lung; C49.A2 Gastrointestinal stromal tumor of stomach; D50.9 Iron deficiency anemia, unspecified
CPT/HCPCS: 36415; 80053; 85025

== ENCOUNTER → 2024-12-29 14:36 | Outpatient (REF) | payer MEDICARE, SELFPAY ==
[2024-12-29 16:18] LABS: ALT (SGPT) < 10 U/L (0-50); AST (SGOT) 16 U/L (17-59); Albumin 4.0 g/dl (3.5-5.0); Alkaline Phosphatase 98 U/L (38-126); Blood Urea Nitrogen 15 mg/dl (9-20); Calcium 9.8 mg/dl (8.4-10.2); Carbon Dioxide 26 mmol/L (22-30); Chloride 106 mmol/L (98-107); Glucose 100 mg/dl (70-99); Hematocrit 35.5 % (39.0-52.0); Hemoglobin 11.5 g/dL (13.0-18.0); Mean Corp Hgb Conc. 32.4 g/dL (33.0-37.0); Mean Corpuscular Volume 98.9 fL (80.0-94.0); Nucleated Red Blood Cells % 0 % (-); Platelet Count 151 10^3/uL (130-400); Potassium 4.0 mmol/L (3.5-5.1); Red Cell Dist. Width 15.9 % (11.5-14.5); Sodium 137 mmol/L (135-145); Total Protein 7.3 g/dl (6.3-8.2); eGFR > 60.00
== END ==
LOC: REG 14:36
PROVIDERS: ATTENDING PHYSICIAN Internal Medicine Hematology & Oncology; FAMILY PHYSICIAN Internal Medicine
DX: C18.2 Malignant neoplasm of ascending colon (principal); G62.0 Drug-induced polyneuropathy; C78.00 Secondary malignant neoplasm of unspecified lung; C49.A1 Gastrointestinal stromal tumor of esophagus; D50.9 Iron deficiency anemia, unspecified
CPT/HCPCS: 36415; 80053; 85025

== ENCOUNTER → 2025-01-12 14:20 | Outpatient (REF) | payer MEDICARE, SELFPAY ==
[2025-01-12 15:34] LABS: Hematocrit 39.2 % (39.0-52.0); Hemoglobin 12.2 g/dL (13.0-18.0); Mean Corp Hgb Conc. 31.1 g/dL (33.0-37.0); Mean Corpuscular Volume 103.4 fL (80.0-94.0); Nucleated Red Blood Cells % 0 % (-); Platelet Count 162 10^3/uL (130-400); Red Cell Dist. Width 15.9 % (11.5-14.5)
[2025-01-12 16:02] LABS: ALT (SGPT) 12 U/L (0-50); AST (SGOT) 21 U/L (17-59); Albumin 4.4 g/dl (3.5-5.0); Alkaline Phosphatase 89 U/L (38-126); Blood Urea Nitrogen 19 mg/dl (9-20); Calcium 10.2 mg/dl (8.4-10.2); Carbon Dioxide 27 mmol/L (22-30); Chloride 104 mmol/L (98-107); Glucose 94 mg/dl (70-99); Potassium 4.8 mmol/L (3.5-5.1); Sodium 136 mmol/L (135-145); Total Protein 7.8 g/dl (6.3-8.2); eGFR > 60.00
== END ==
LOC: REG 14:20
PROVIDERS: ATTENDING PHYSICIAN Internal Medicine Hematology & Oncology; FAMILY PHYSICIAN Internal Medicine
DX: C18.2 Malignant neoplasm of ascending colon (principal); G62.0 Drug-induced polyneuropathy; C78.00 Secondary malignant neoplasm of unspecified lung; C49.A2 Gastrointestinal stromal tumor of stomach; D50.9 Iron deficiency anemia, unspecified
CPT/HCPCS: 36415; 80053; 85025

== ENCOUNTER → 2025-01-26 11:02 | Outpatient (REF) | payer MEDICARE, SELFPAY ==
[2025-01-26 11:40] LABS: Hematocrit 39.6 % (39.0-52.0); Hemoglobin 12.6 g/dL (13.0-18.0); Mean Corp Hgb Conc. 31.8 g/dL (33.0-37.0); Mean Corpuscular Volume 100.3 fL (80.0-94.0); Nucleated Red Blood Cells % 0 % (-); Platelet Count 169 10^3/uL (130-400); Red Cell Dist. Width 15.8 % (11.5-14.5)
[2025-01-26 12:07] LABS: ALT (SGPT) 12 U/L (0-50); AST (SGOT) 21 U/L (17-59); Albumin 4.4 g/dl (3.5-5.0); Alkaline Phosphatase 95 U/L (38-126); Blood Urea Nitrogen 20 mg/dl (9-20); Calcium 10.3 mg/dl (8.4-10.2); Carbon Dioxide 27 mmol/L (22-30); Chloride 107 mmol/L (98-107); Glucose 81 mg/dl (70-99); Potassium 5.1 mmol/L (3.5-5.1); Sodium 140 mmol/L (135-145); Total Protein 8.0 g/dl (6.3-8.2); eGFR > 60.00
== END ==
LOC: REG 11:02
PROVIDERS: ATTENDING PHYSICIAN Internal Medicine Hematology & Oncology; FAMILY PHYSICIAN Physician Assistant
DX: C18.2 Malignant neoplasm of ascending colon (principal); G62.0 Drug-induced polyneuropathy; C78.00 Secondary malignant neoplasm of unspecified lung; C49.A2 Gastrointestinal stromal tumor of stomach; D50.9 Iron deficiency anemia, unspecified
CPT/HCPCS: 36415; 80053; 85025